=== PATIENT | female | born 1940 | race Caucasian/White ===

== ENCOUNTER → 2017-02-01 | Outpatient (CLI) | payer MEDICARE, BC | LOC: MW.CHPOD 08:00 | CPT/HCPCS: 11721; 99204 ==

== ENCOUNTER → 2017-02-23 | Outpatient (CLI) | payer MEDICARE, BC | LOC: MW.CHIM 08:00 | PROVIDERS: ATTEND Internal Medicine | DX: E11.65 Type 2 diabetes mellitus with hyperglycemia (principal); J44.9 Chronic obstructive pulmonary disease, unspecified; F17.200 Nicotine dependence, unspecified, uncomplicated; G62.9 Polyneuropathy, unspecified | CPT/HCPCS: 99215 ==

== ENCOUNTER → 2017-04-10 | Outpatient (CLI) | payer MEDICARE, BC | LOC: MW.CHIM 08:25 | PROVIDERS: ATTEND Internal Medicine | DX: E11.9 Type 2 diabetes mellitus without complications (principal) | CPT/HCPCS: 36415; 83036 ==

== ENCOUNTER → 2017-04-11 | Outpatient (CLI) | payer MEDICARE, BC | LOC: MW.CHIM 08:00 | PROVIDERS: ATTEND Internal Medicine | DX: E11.65 Type 2 diabetes mellitus with hyperglycemia (principal); E66.9 Obesity, unspecified; R60.0 Localized edema; J44.9 Chronic obstructive pulmonary disease, unspecified | CPT/HCPCS: 99214 ==

== ENCOUNTER → 2017-04-17 | Outpatient (CLI) | payer MEDICARE, BC ==
[2017-04-17 15:08] LABS: CHLORIDE,CL 103 mmol/L (98-110); SODIUM,NA 139 mmol/L (136-146)
== END ==
LOC: MW.CHIM 13:33
PROVIDERS: ATTEND Internal Medicine
DX: I10 Essential (primary) hypertension (principal)
CPT/HCPCS: 36415; 80048

== ENCOUNTER 2018-05-20 00:44 | Observation (INO) | payer MEDICARE, BC ==
[2018-05-20] MEDS ORDERED: Sodium Chloride 0.9% 10 ML Syringe FLUSH PRN (01:22)
[2018-05-20] MEDS ORDERED: Sodium Chloride 0.9% 2.5 ML Syringe FLUSH PRN (01:22)
--- NOTE | 2018-05-20 01:27 | EDM.PDOC ---
ED HPI GENERAL MEDICAL PROBLEM - General Chief Complaint: General Stated Complaint: FALL Time Seen by Provider: 05/20/18 01:13 - History of Present Illness INITIAL COMMENTS - FREE TEXT/NARRATIVE: HISTORY AND PHYSICAL: History of present illness: The patient is a 78-year-old female who arrives via EMS after falling her own height. The patient has a history of hypertension COPD stage IV chronic renal disease diabetes and tells me that starting last evening her legs are feeling very weak and that is what caused her to fall and she hit the back of her head. She says she passed out but she is unsure how long and she initially had head pain and neck pain but now her head pain is gone. She has no back pain no chest pain or shortness of breath no abdominal pain vomiting or diarrhea. She's had no urinary complaints and complains of left hip pain but no distal knee or ankle pain. Patient arrived via EMS with a c-collar in place and a immobilization on her hip. Patient tells me she ate normally yesterday and had no systemic complaints and that this leg weakness came on suddenly. She denies upper extremity complaints and says it was both legs not right or left. Patient denies any chest pain or shortness of breath currently in the ED and is not nauseated. Review of systems: As per history of present illness and below otherwise all systems reviewed and negative. Past medical history: As per history of present illness and as reviewed below otherwise noncontributory. Surgical history: As per history of present illness and as reviewed below otherwise noncontributory. Social history: No reported history of drug or alcohol abuse. Family history: As per history of present illness and as reviewed below otherwise noncontributory. Physical exam: General: Well-developed overweight female who is nontoxic and vital signs are noted by me HEENT: Atraumatic, normocephalic, pupils reactive, negative for conjunctival pallor or scleral icterus, mucous membranes moist, throat clear, neck supple, nontender, trachea midline. There are no midline step-offs or defects of the cervical spine but there is diffuse tenderness so the c-collar was maintained. On palpation of the scalp I cannot appreciate any soft tissue injury or swelling and there are no palpable bony deformities. There are no fascial defects or deformities. Lungs: Clear to auscultation, breath sounds equal bilaterally, chest nontender. No worker breathing stridor or wheezing Heart: S1S2, regular rate and rhythm no overt murmurs Abdomen: Soft, nondistended, nontender. Negative for masses or hepatosplenomegaly. Negative for costovertebral tenderness. Pelvis: Stable nontender. Genitourinary: Deferred. Rectal: Deferred. Extremities: Atraumatic with full range of motion of all extremities with the exception of the left hip where there is tenderness with palpation but no overt bruising and there is no left leg shortening or rotation,, negative for cords or calf pain. Neurovascular with monophasic pulses in the posterior tibial and dorsalis pedis bilaterally but good cap refill and warmth Neuro: Awake, alert, oriented. Cranial nerves II through XII unremarkable. Cerebellum unremarkable. Motor and sensory unremarkable throughout. Exam nonfocal. Back: There are no midline step-offs tenderness defects of the thoracic or lumbar spine and no posterior rib or posterior pelvis tenderness. There are no visual soft tissue injuries appreciated such as ecchymosis swelling or redness. Diagnostics: EKG CBC CMP magnesium INR TSH troponin UA lactic acid x-ray of left hip with pelvis chest x-ray CT scan of the head and C-spine When patient was in x-ray she complained of right hip pain so that x-ray was also ordered Repeat one view chest x-ray was performed in the upright position Therapeutics: IV O2 monitor gentle IV fluids Please note that I have reviewed the patient's prior lab tests and she had BUN and creatinine performed on April 01 which was 65/2.2 and then she had a repeat creatinine level on April 08 of 2.4. Today's creatinine is 2.7 but the BUN is 103. UA indicates maybe an early UTI so I will send a urine culture and give a gram of Rocephin. I will also continue gentle IV hydration. 0321: Case was discussed with the hospitalist Dr. Stout; she agrees with observation admission as she has multiple issues going on. Impression: Bilateral Lower extremity weakness and fall with blunt head trauma with loss of consciousness, concussion rule out syncope; elevated BUN and creatinine with history of stage IV chronic renal disease rule out dehydration; early UTI Definitive disposition and diagnosis as appropriate pending reevaluation and review of above. Treatments SOFTWARE SUPPORT REPRESENTATIVE: Reports: Cervical Collar, Splint(s), Spinal Immobilization back of head Pain Score (Numeric/FACES): 8 left hip Pain Score (Numeric/FACES): 8 - Related Data Allergies Allergy/AdvReac Type Severity Reaction Status Date / Time No Known Allergies Allergy Verified 10/20/14 08:20 Home Meds: Home Meds Aspirin 1 tab PO DAILY 05/20/18 [History] Budesonide/Formoterol Fumarate [Symbicort 160-4.5 Mcg Inhaler] 1 puff INH ASDIRECTED 05/20/18 [History] Enalapril/Hydrochlorothiazide [Enalapril-HCTZ 10-25 MG] 1 tab PO DAILY 05/20/18 [History] Furosemide [Lasix] 1 tab PO DAILY 05/20/18 [History] Gabapentin [Neurontin] 1 cap PO BID 05/20/18 [History] Insulin Detemir [Levemir Flextouch] 0 units SQ ASDIRECTED 05/20/18 [History] Rosuvastatin Calcium 1 tab PO ASDIRECTED 05/20/18 [History] amLODIPine Besylate [Amlodipine Besylate] 1 tab PO DAILY 05/20/18 [History] prednisoLONE [Millipred DP] 1 tab PO DAILY 05/20/18 [History] ED ROS GENERAL - Review of Systems Review Of Systems: ROS reveals no pertinent complaints other than HPI. ED EXAM, GENERAL - Physical Exam Exam: See Below (See dictation) Course - Vital Signs Last Recorded V/S: Last Vital Signs Temp 36.2 C 05/20/18 00:44 Pulse 85 05/20/18 02:12 Resp 19 05/20/18 02:12 BP 114/42 L 05/20/18 02:12 Pulse Ox 95 05/20/18 02:12 - Orders/Labs/Meds Orders: Active Orders 24 hr Category Date Time Status Patient Status [ADT] Stat ADT 05/20/18 03:24 Ordered Cardiac Monitoring [RC] . DIRECTED Care 05/20/18 01:21 Active Pulse Oximetry [RC] ASDIRECTED Care 05/20/18 01:21 Active Cervical Spine wo Cont [CT] Stat Exams 05/20/18 01:23 Taken Chest 1V Frontal [CR] Stat Exams 05/20/18 01:22 Taken Chest 1V Frontal [CR] Stat Exams 05/20/18 02:15 Taken Head wo Cont [CT] Stat Exams 05/20/18 01:22 Taken Hip Min 2V w Pelvis Bi [CR] Stat Exams 05/20/18 01:22 Taken CULTURE URINE [RM] Stat Lab 05/20/18 02:30 Received UA W/MICROSCOPIC [URIN] Stat Lab 05/20/18 02:20 Ordered Sodium Chloride 0.9% @ 75 MLS/HR(1,000ml) Med 05/20/18 03:30 Ordered Sodium Chloride 0.9% [Normal Saline] 1,000 ml IV ASDIRECTED Sodium Chloride 0.9% [Normal Saline] 500 ml Med 05/20/18 01:30 Active IV STAT Sodium Chloride 0.9% [Saline Flush] Med 05/20/18 01:22 Active 10 ml FLUSH ASDIRECTED PRN Sodium Chloride 0.9% [Saline Flush] Med 05/20/18 01:22 Active 2.5 ml FLUSH ASDIRECTED PRN cefTRIAXone [Rocephin in Dextrose,Iso-Osm 1 GM/50 ML] 1 Med 05/20/18 03:23 Ordered gm Premix Bag 1 bag IV ONETIME Saline Lock Insert [OM.PC] Stat Oth 05/20/18 01:21 Ordered Medication Orders Sodium Chloride (Normal Saline) 500 mls @ 999 mls/hr IV STAT SHIV Last Admin: 05/20/18 01:30 Dose: 999 mls/hr Sodium Chloride (Saline Flush) 10 ml FLUSH ASDIRECTED PRN PRN Reason: Keep Vein Open Sodium Chloride (Saline Flush) 2.5 ml FLUSH ASDIRECTED PRN PRN Reason: Keep Vein Open Labs: Laboratory Tests 05/20/18 05/20/18 05/20/18 Range/Units 00:45 00:45 00:45 WBC 15.48 H (4.0-11.0) K/uL RBC 4.61 (4.30-5.90) M/uL Hgb 11.9 L (12.0-16.0) g/dL Hct 36.2 (36.0-46.0) % MCV 78.5 L (80.0-98.0) fL MCH 25.8 L (27.0-32.0) pg MCHC 32.9 (31.0-37.0) g/dL RDW Std Deviation 49.6 (28.0-62.0) fl RDW Coeff of Franki 18 H (11.0-15.0) % Plt Count 307 (150-400) K/uL MPV 10.40 (7.40-12.00) fL Neut % (Auto) 78.0 (48.0-80.0) % Lymph % (Auto) 13.8 L (16.0-40.0) % [place] % (Auto) 7.9 (0.0-15.0) % Eos % (Auto) 0.1 (0.0-7.0) % Baso % (Auto) 0.2 (0.0-1.5) % Neut # (Auto) 12.1 H (1.4-5.7) K/uL Lymph # (Auto) 2.1 (0.6-2.4) K/uL [place] # (Auto) 1.2 H (0.0-0.8) K/uL Eos # (Auto) 0.0 (0.0-0.7) K/uL Baso # (Auto) 0.0 (0.0-0.1) K/uL INR 0.97 Lactate (0.20-2.00) mmol/L Sodium 133 L (136-145) mmol/L Potassium 4.5 (3.5-5.1) mmol/L Chloride 97 L (98-107) mmol/L Carbon Dioxide 23.2 (21.0-32.0) mmol/L BUN 103 H (7.0-18.0) mg/dL Creatinine 2.7 H (0.6-1.0) mg/dL Est Cr Clr Drug Dosing TNP Estimated GFR (MDRD) 17.0 ml/min Glucose 198 H (74-106) mg/dL Calcium 9.2 (8.5-10.1) mg/dL Magnesium 2.1 (1.8-2.4) mg/dL Total Bilirubin 0.2 (0.2-1.0) mg/dL AST 20 (15-37) IU/L ALT 24 (14-63) IU/L Alkaline Phosphatase 58 (46-116) U/L Troponin I < 0.050 (0.000-0.056) ng/mL Total Protein 6.1 L (6.4-8.2) g/dL Albumin 2.5 L (3.4-5.0) g/dL Globulin 3.6 H (2.0-3.5) g/dL Albumin/Globulin Ratio 0.7 L (1.3-2.8) TSH 3rd Generation 1.60 (0.36-3.74) uIU/mL Urine Color Urine Appearance Urine pH (5.0-8.0) Ur Specific [place] (1.001-1.035) Urine Protein (NEGATIVE) mg/dL Urine Glucose (UA) (NEGATIVE) mg/dL Urine Ketones (NEGATIVE) mg/dL Urine Occult Blood (NEGATIVE) Urine Nitrite (NEGATIVE) Urine Bilirubin (NEGATIVE) Urine Urobilinogen (<2.0) EU/dL Ur Leukocyte Esterase (NEGATIVE) Urine RBC (0-2/HPF) Urine WBC (0-5/HPF) Ur Epithelial Cells (NONE-FEW) Urine Bacteria (NEGATIVE) 05/20/18 05/20/18 Range/Units 00:45 02:20 WBC (4.0-11.0) K/uL RBC (4.30-5.90) M/uL Hgb (12.0-16.0) g/dL Hct (36.0-46.0) % MCV (80.0-98.0) fL MCH (27.0-32.0) pg MCHC (31.0-37.0) g/dL RDW Std Deviation (28.0-62.0) fl RDW Coeff of Franki (11.0-15.0) % Plt Count (150-400) K/uL MPV (7.40-12.00) fL Neut % (Auto) (48.0-80.0) % Lymph % (Auto) (16.0-40.0) % [place] % (Auto) (0.0-15.0) % Eos % (Auto) (0.0-7.0) % Baso % (Auto) (0.0-1.5) % Neut # (Auto) (1.4-5.7) K/uL Lymph # (Auto) (0.6-2.4) K/uL [place] # (Auto) (0.0-0.8) K/uL Eos # (Auto) (0.0-0.7) K/uL Baso # (Auto) (0.0-0.1) K/uL INR Lactate 1.2 (0.20-2.00) mmol/L Sodium (136-145) mmol/L Potassium (3.5-5.1) mmol/L Chloride (98-107) mmol/L Carbon Dioxide (21.0-32.0) mmol/L BUN (7.0-18.0) mg/dL Creatinine (0.6-1.0) mg/dL Est Cr Clr Drug Dosing Estimated GFR (MDRD) ml/min Glucose (74-106) mg/dL Calcium (8.5-10.1) mg/dL Magnesium (1.8-2.4) mg/dL Total Bilirubin (0.2-1.0) mg/dL AST (15-37) IU/L ALT (14-63) IU/L Alkaline Phosphatase (46-116) U/L Troponin I (0.000-0.056) ng/mL Total Protein (6.4-8.2) g/dL Albumin (3.4-5.0) g/dL Globulin (2.0-3.5) g/dL Albumin/Globulin Ratio (1.3-2.8) TSH 3rd Generation (0.36-3.74) uIU/mL Urine Color YELLOW Urine Appearance HAZY Urine pH 5.5 (5.0-8.0) Ur Specific [place] 1.010 (1.001-1.035) Urine Protein NEGATIVE (NEGATIVE) mg/dL Urine Glucose (UA) NEGATIVE (NEGATIVE) mg/dL Urine Ketones NEGATIVE (NEGATIVE) mg/dL Urine Occult Blood SMALL H (NEGATIVE) Urine Nitrite NEGATIVE (NEGATIVE) Urine Bilirubin NEGATIVE (NEGATIVE) Urine Urobilinogen 0.2 (<2.0) EU/dL Ur Leukocyte Esterase SMALL (NEGATIVE) Urine RBC 1-3 (0-2/HPF) Urine WBC 2-4 (0-5/HPF) Ur Epithelial Cells FEW (NONE-FEW) Urine Bacteria FEW (NEGATIVE) Meds: Medications Generic Name Dose Route Start Last Admin Trade Name Freq PRN Reason Stop Dose Admin Sodium Chloride 500 mls @ 999 mls/hr 05/20/18 01:30 05/20/18 01:30 Normal Saline IV 999 mls/hr STAT SHIV Administration Sodium Chloride 10 ml 05/20/18 01:22 Saline Flush FLUSH ASDIRECTED PRN Keep Vein Open Sodium Chloride 2.5 ml 05/20/18 01:22 Saline Flush FLUSH ASDIRECTED PRN Keep Vein Open Departure - Departure Time of Disposition: 03:26 Disposition: Refer to Observation Condition: Good Clinical Impression: Dehydration, UTI, Urinary tract infectious disease, Fall Syncope Qualifiers: Syncope type: unspecified Qualified Code(s): R55 - Syncope and collapse Blunt head trauma Qualifiers: Encounter type: initial encounter Qualified Code(s): S09.8XXA - Other specified injuries of head, initial encounter - Discharge Information Referrals: PCP,None [Primary Care Provider] - Forms: ED Department Discharge - My Orders Last 24 Hours: My Active Orders 05/20/18 01:21 Cardiac Monitoring [RC] . DIRECTED Pulse Oximetry [RC] ASDIRECTED Saline Lock Insert [OM.PC] Stat 05/20/18 01:22 Chest 1V Frontal [CR] Stat Head wo Cont [CT] Stat Hip Min 2V w Pelvis Bi [CR] Stat Sodium Chloride 0.9% [Saline Flush] 10 ml FLUSH ASDIRECTED PRN Sodium Chloride 0.9% [Saline Flush] 2.5 ml FLUSH ASDIRECTED PRN 05/20/18 01:23 Cervical Spine wo Cont [CT] Stat 05/20/18 01:30 Sodium Chloride 0.9% [Normal Saline] 500 ml IV STAT 05/20/18 02:15 Chest 1V Frontal [CR] Stat 05/20/18 02:20 UA W/MICROSCOPIC [URIN] Stat 05/20/18 02:30 CULTURE URINE [RM] Stat 05/20/18 03:23 cefTRIAXone [Rocephin in Dextrose,Iso-Osm 1 GM/50 ML] 1 gm Premix Bag 1 bag IV ONETIME 05/20/18 03:24 Patient Status [ADT] Stat 05/20/18 03:30 Sodium Chloride 0.9% @ 75 MLS/HR(1,000ml) Sodium Chloride 0.9% [Normal Saline] 1,000 ml IV ASDIRECTED - Assessment/Plan Last 24 Hours: My Active Orders 05/20/18 01:21 Cardiac Monitoring [RC] . DIRECTED Pulse Oximetry [RC] ASDIRECTED Saline Lock Insert [OM.PC] Stat 05/20/18 01:22 Chest 1V Frontal [CR] Stat Head wo Cont [CT] Stat Hip Min 2V w Pelvis Bi [CR] Stat Sodium Chloride 0.9% [Saline Flush] 10 ml FLUSH ASDIRECTED PRN Sodium Chloride 0.9% [Saline Flush] 2.5 ml FLUSH ASDIRECTED PRN 05/20/18 01:23 Cervical Spine wo Cont [CT] Stat 05/20/18 01:30 Sodium Chloride 0.9% [Normal Saline] 500 ml IV STAT 05/20/18 02:15 Chest 1V Frontal [CR] Stat 05/20/18 02:20 UA W/MICROSCOPIC [URIN] Stat 05/20/18 02:30 CULTURE URINE [RM] Stat 05/20/18 03:23 cefTRIAXone [Rocephin in Dextrose,Iso-Osm 1 GM/50 ML] 1 gm Premix Bag 1 bag IV ONETIME 05/20/18 03:24 Patient Status [ADT] Stat 05/20/18 03:30 Sodium Chloride 0.9% @ 75 MLS/HR(1,000ml) Sodium Chloride 0.9% [Normal Saline] 1,000 ml IV ASDIRECTED
[2018-05-20] MEDS: Sodium Chloride 0.9% 500 ML IV SCH ×2 (01:30→14:01)
[2018-05-20 01:53] LABS: CHLORIDE,CL 97 mmol/L (98-107); SODIUM,NA 133 mmol/L (136-145)
[2018-05-20] MEDS ORDERED: cefTRIAXone 1 GM in Premix Bag 1 BAG IV ONE (03:23)
[2018-05-20] MEDS ORDERED: Sodium Chloride 0.9% 1,000 ML IV SCH (03:30)
[2018-05-20] MEDS: Lactated Ringers 1,000 ML IV SCH ×2 (05:45→23:37)
[2018-05-20] MEDS: Heparin Sodium 5,000 Units/ML Vial SUBCUT SCH ×2 (05:47→17:23)
[2018-05-20 07:12] LABS: CHLORIDE,CL 101 mmol/L (98-107); SODIUM,NA 136 mmol/L (136-145)
[2018-05-20] MEDS: Insulin Aspart 100 Units/ML 3 ML Pen SUBCUT SCH ×4 (07:27→20:47)
[2018-05-20] MEDS ORDERED: Albuterol/Ipratropium 3.0-0.5 MG/3 ML Neb Soln NEB PRN (08:55)
[2018-05-20] MEDS ORDERED: Sodium Chloride 0.9% 500 ML IV SCH (09:15)
--- NOTE | 2018-05-20 10:48 | PCM.HP ---
<Freddy Abreu - Last Filed: 05/20/18 11:00> H&P History of Present Illness - General Date of Service: 05/20/18 Admit Problem/Dx: Admission Diagnosis/Problem Admission Diagnosis/Problem Syncope Source of Information: Patient History Limitations: Reports: No Limitations - History of Present Illness Initial Comments - Free Text/Narative: This is a 78F with a hx of T2DM, HTN, HLD, Peripheral neuropathy that presented to the ER s/p fall at home. She tells me that she was walking to the kitchen without assistance when she felt that both of her legs gave out beneath her and she fell over. She hit her head on the wall as she fell. She thinks she passed out "for a few seconds" when this happened. She woke up with no confusion, or tongue bite. She has never had a syncopal episode before. In the ER, CT Head + Cervical neck, CXR, bilateral hip xray were all negative. Labs indicate a leukocytosis and possible UTI. Currently, she complains of bilateral leg pain that is mild. She has no other complaints. back of head Pain Score (Numeric/FACES): 8 left hip Pain Score (Numeric/FACES): 3 - Related Data Allergies/Adverse Reactions: Allergies Allergy/AdvReac Type Severity Reaction Status Date / Time No Known Allergies Allergy Verified 10/20/14 08:20 Home Medications: Home Meds Aspirin 1 tab PO DAILY 05/20/18 [History] Budesonide/Formoterol Fumarate [Symbicort 160-4.5 Mcg Inhaler] 1 puff INH ASDIRECTED 05/20/18 [History] Enalapril/Hydrochlorothiazide [Enalapril-HCTZ 10-25 MG] 1 tab PO DAILY 05/20/18 [History] Furosemide [Lasix] 1 tab PO DAILY 05/20/18 [History] Gabapentin [Neurontin] 1 cap PO BID 05/20/18 [History] Insulin Detemir [Levemir Flextouch] 0 units SQ ASDIRECTED 05/20/18 [History] Rosuvastatin Calcium 20 mg PO SUTUTHSA 05/20/18 [History] amLODIPine Besylate [Amlodipine Besylate] 10 mg PO DAILY 05/20/18 [History] prednisoLONE [Millipred DP] 1 tab PO DAILY 05/20/18 [History] Past Medical History HEENT History: Reports: Hard of Hearing Cardiovascular History: Reports: High Cholesterol, Hypertension Respiratory History: Reports: COPD Gastrointestinal History: Reports: Other (See Below) Other Gastrointestinal History: umbilical hernia Genitourinary History: Reports: Other (See Below) Other Genitourinary History: CKD Musculoskeletal History: Reports: None Endocrine/Metabolic History: Reports: Diabetes, Type II Immunologic History: Reports: None - Infectious Disease History Infectious Disease History: Reports: None - Past Surgical History HEENT Surgical History: Reports: None Cardiovascular Surgical History: Reports: None Respiratory Surgical History: Reports: None GI Surgical History: Reports: Colon Endocrine Surgical History: Reports: None Musculoskeletal Surgical History: Reports: None Social & Family History - Family History Family Medical History: Noncontributory - Tobacco Use Smoking Status *Q: Current Every Day Smoker Years of Tobacco use: 57 Packs/Tins Daily: 0.5 Second Hand Smoke Exposure: Yes - Caffeine Use Caffeine Use: Reports: Coffee - Recreational Drug Use Recreational Drug Use: No H&P Review of Systems - Review of Systems: Review Of Systems: See Below General: Reports: No Symptoms HEENT: Reports: No Symptoms Pulmonary: Reports: No Symptoms Cardiovascular: Reports: No Symptoms Gastrointestinal: Reports: No Symptoms, Stool Incontinence Musculoskeletal: Reports: No Symptoms Skin: Reports: No Symptoms Psychiatric: Reports: No Symptoms Neurological: Reports: No Symptoms, Syncope Hematologic/Lymphatic: Reports: No Symptoms Immunologic: Reports: No Symptoms Exam - Exam Exam: See Below - Vital Signs Vital Signs: Last Vital Signs Temp 36.2 C 05/20/18 08:00 Pulse 94 05/20/18 08:00 Resp 19 05/20/18 08:00 BP 127/60 05/20/18 08:00 Pulse Ox 93 L 05/20/18 08:00 Weight: 200 lb - Exam General: Alert, Oriented, 4 HEENT: PERRLA, Hearing Intact, Mucosa Moist & [place], Nares Patent, Normal Nasal Septum, Posterior Pharynx Clear, Conjunctiva Clear, EOMI, EACs Clear, TMs Clear Neck: Supple, Trachea Midline, 2 Lungs: Clear to Auscultation, Normal Respiratory Effort Cardiovascular: Regular Rate, Regular Rhythm GI/Abdominal Exam: Normal Bowel Sounds, Soft, Non-Tender, No Organomegaly, No Distention, No Abnormal Bruit, No Mass, Pelvis Stable Back Exam: Normal Inspection, Full Range of Motion, NT Extremities: Normal Inspection, Normal Range of Motion, Non-Tender, No Pedal Edema, Normal Capillary Refill Peripheral Pulses: 2+: Dorsalis Pedis (L), Dorsalis Pedis (R) Skin: Warm, Dry, Intact Neurological: Cranial Nerves Intact, Reflexes Equal Bilateral Neuro Extensive - Mental Status: Alert, Oriented x3, Normal Mood/Affect, Normal Cognition Neuro Extensive - Motor, Sensory, Reflexes: CN II-XII Intact, Normal Gait, Normal Reflexes Psychiatric: Alert, Normal Affect, Normal Mood - Patient Data Lab Results Last 24 hrs: Laboratory Results - last 24 hr 05/20/18 05/20/18 05/20/18 Range/Units 00:45 00:45 00:45 WBC 15.48 H (4.0-11.0) K/uL RBC 4.61 (4.30-5.90) M/uL Hgb 11.9 L (12.0-16.0) g/dL Hct 36.2 (36.0-46.0) % MCV 78.5 L (80.0-98.0) fL MCH 25.8 L (27.0-32.0) pg MCHC 32.9 (31.0-37.0) g/dL RDW Std Deviation 49.6 (28.0-62.0) fl RDW Coeff of Franki 18 H (11.0-15.0) % Plt Count 307 (150-400) K/uL MPV 10.40 (7.40-12.00) fL Neut % (Auto) 78.0 (48.0-80.0) % Lymph % (Auto) 13.8 L (16.0-40.0) % [place]ift % (Auto) 7.9 (0.0-15.0) % Eos % (Auto) 0.1 (0.0-7.0) % Baso % (Auto) 0.2 (0.0-1.5) % Neut # (Auto) 12.1 H (1.4-5.7) K/uL Lymph # (Auto) 2.1 (0.6-2.4) K/uL [place]ift # (Auto) 1.2 H (0.0-0.8) K/uL Eos # (Auto) 0.0 (0.0-0.7) K/uL Baso # (Auto) 0.0 (0.0-0.1) K/uL Neutrophils % (Manual) (48.0-80.0) % Band Neutrophils % % Lymphocytes % (Manual) (16.0-40.0) % Monocytes % (Manual) (0.0-15.0) % Nucleated RBC % /100WBC Absolute Seg Neuts (1.4-5.7) Band Neutrophils # Lymphocytes # (Manual) (0.6-2.4) Monocytes # (Manual) (0.0-0.8) INR 0.97 Lactate (0.20-2.00) mmol/L Sodium 133 L (136-145) mmol/L Potassium 4.5 (3.5-5.1) mmol/L Chloride 97 L (98-107) mmol/L Carbon Dioxide 23.2 (21.0-32.0) mmol/L BUN 103 H (7.0-18.0) mg/dL Creatinine 2.7 H (0.6-1.0) mg/dL Est Cr Clr Drug Dosing TNP Estimated GFR (MDRD) 17.0 ml/min Glucose 198 H (74-106) mg/dL POC Glucose (60-110) mg/dL Calcium 9.2 (8.5-10.1) mg/dL Magnesium 2.1 (1.8-2.4) mg/dL Total Bilirubin 0.2 (0.2-1.0) mg/dL AST 20 (15-37) IU/L ALT 24 (14-63) IU/L Alkaline Phosphatase 58 (46-116) U/L Troponin I < 0.050 (0.000-0.056) ng/mL Total Protein 6.1 L (6.4-8.2) g/dL Albumin 2.5 L (3.4-5.0) g/dL Globulin 3.6 H (2.0-3.5) g/dL Albumin/Globulin Ratio 0.7 L (1.3-2.8) TSH 3rd Generation 1.60 (0.36-3.74) uIU/mL Urine Color Urine Appearance Urine pH (5.0-8.0) Ur Specific [place] (1.001-1.035) Urine Protein (NEGATIVE) mg/dL Urine Glucose (UA) (NEGATIVE) mg/dL Urine Ketones (NEGATIVE) mg/dL Urine Occult Blood (NEGATIVE) Urine Nitrite (NEGATIVE) Urine Bilirubin (NEGATIVE) Urine Urobilinogen (<2.0) EU/dL Ur Leukocyte Esterase (NEGATIVE) Urine RBC (0-2/HPF) Urine WBC (0-5/HPF) Ur Epithelial Cells (NONE-FEW) Urine Bacteria (NEGATIVE) 05/20/18 05/20/18 05/20/18 Range/Units 00:45 02:20 06:10 WBC (4.0-11.0) K/uL RBC (4.30-5.90) M/uL Hgb (12.0-16.0) g/dL Hct (36.0-46.0) % MCV (80.0-98.0) fL MCH (27.0-32.0) pg MCHC (31.0-37.0) g/dL RDW Std Deviation (28.0-62.0) fl RDW Coeff of Franki (11.0-15.0) % Plt Count (150-400) K/uL MPV (7.40-12.00) fL Neut % (Auto) (48.0-80.0) % Lymph % (Auto) (16.0-40.0) % Tift % (Auto) (0.0-15.0) % Eos % (Auto) (0.0-7.0) % Baso % (Auto) (0.0-1.5) % Neut # (Auto) (1.4-5.7) K/uL Lymph # (Auto) (0.6-2.4) K/uL [place]ift # (Auto) (0.0-0.8) K/uL Eos # (Auto) (0.0-0.7) K/uL Baso # (Auto) (0.0-0.1) K/uL Neutrophils % (Manual) (48.0-80.0) % Band Neutrophils % % Lymphocytes % (Manual) (16.0-40.0) % Monocytes % (Manual) (0.0-15.0) % Nucleated RBC % /100WBC Absolute Seg Neuts (1.4-5.7) Band Neutrophils # Lymphocytes # (Manual) (0.6-2.4) Monocytes # (Manual) (0.0-0.8) INR Lactate 1.2 (0.20-2.00) mmol/L Sodium (136-145) mmol/L Potassium (3.5-5.1) mmol/L Chloride (98-107) mmol/L Carbon Dioxide (21.0-32.0) mmol/L BUN (7.0-18.0) mg/dL Creatinine (0.6-1.0) mg/dL Est Cr Clr Drug Dosing Estimated GFR (MDRD) ml/min Glucose (74-106) mg/dL POC Glucose 169 H (60-110) mg/dL Calcium (8.5-10.1) mg/dL Magnesium (1.8-2.4) mg/dL Total Bilirubin (0.2-1.0) mg/dL AST (15-37) IU/L ALT (14-63) IU/L Alkaline Phosphatase (46-116) U/L Troponin I (0.000-0.056) ng/mL Total Protein (6.4-8.2) g/dL Albumin (3.4-5.0) g/dL Globulin (2.0-3.5) g/dL Albumin/Globulin Ratio (1.3-2.8) TSH 3rd Generation (0.36-3.74) uIU/mL Urine Color YELLOW Urine Appearance HAZY Urine pH 5.5 (5.0-8.0) Ur Specific [place] 1.010 (1.001-1.035) Urine Protein NEGATIVE (NEGATIVE) mg/dL Urine Glucose (UA) NEGATIVE (NEGATIVE) mg/dL Urine Ketones NEGATIVE (NEGATIVE) mg/dL Urine Occult Blood SMALL H (NEGATIVE) Urine Nitrite NEGATIVE (NEGATIVE) Urine Bilirubin NEGATIVE (NEGATIVE) Urine Urobilinogen 0.2 (<2.0) EU/dL Ur Leukocyte Esterase SMALL (NEGATIVE) Urine RBC 1-3 (0-2/HPF) Urine WBC 2-4 (0-5/HPF) Ur Epithelial Cells FEW (NONE-FEW) Urine Bacteria FEW (NEGATIVE) 05/20/18 05/20/18 Range/Units 06:47 06:47 WBC 16.18 H (4.0-11.0) K/uL RBC 4.59 (4.30-5.90) M/uL Hgb 11.9 L (12.0-16.0) g/dL Hct 35.9 L (36.0-46.0) % MCV 78.2 L (80.0-98.0) fL MCH 25.9 L (27.0-32.0) pg MCHC 33.1 (31.0-37.0) g/dL RDW Std Deviation 50.1 (28.0-62.0) fl RDW Coeff of Franki 18 H (11.0-15.0) % Plt Count 292 (150-400) K/uL MPV 10.00 (7.40-12.00) fL Neut % (Auto) (48.0-80.0) % Lymph % (Auto) (16.0-40.0) % Tift % (Auto) (0.0-15.0) % Eos % (Auto) (0.0-7.0) % Baso % (Auto) (0.0-1.5) % Neut # (Auto) (1.4-5.7) K/uL Lymph # (Auto) (0.6-2.4) K/uL [place]ift # (Auto) (0.0-0.8) K/uL Eos # (Auto) (0.0-0.7) K/uL Baso # (Auto) (0.0-0.1) K/uL Neutrophils % (Manual) 73 (48.0-80.0) % Band Neutrophils % 2 % Lymphocytes % (Manual) 18 (16.0-40.0) % Monocytes % (Manual) 7 (0.0-15.0) % Nucleated RBC % 0.0 /100WBC Absolute Seg Neuts 11.8 H (1.4-5.7) Band Neutrophils # 0.3 Lymphocytes # (Manual) 2.9 H (0.6-2.4) Monocytes # (Manual) 1.1 H (0.0-0.8) INR Lactate (0.20-2.00) mmol/L Sodium 136 (136-145) mmol/L Potassium 3.8 (3.5-5.1) mmol/L Chloride 101 (98-107) mmol/L Carbon Dioxide 25.2 (21.0-32.0) mmol/L BUN 96 H (7.0-18.0) mg/dL Creatinine 2.4 H (0.6-1.0) mg/dL Est Cr Clr Drug Dosing TNP Estimated GFR (MDRD) 19.5 ml/min Glucose 165 H (74-106) mg/dL POC Glucose (60-110) mg/dL Calcium 8.7 (8.5-10.1) mg/dL Magnesium (1.8-2.4) mg/dL Total Bilirubin 0.2 (0.2-1.0) mg/dL AST 18 (15-37) IU/L ALT 23 (14-63) IU/L Alkaline Phosphatase 59 (46-116) U/L Troponin I < 0.050 (0.000-0.056) ng/mL Total Protein 5.8 L (6.4-8.2) g/dL Albumin 2.4 L (3.4-5.0) g/dL Globulin 3.4 (2.0-3.5) g/dL Albumin/Globulin Ratio 0.7 L (1.3-2.8) TSH 3rd Generation (0.36-3.74) uIU/mL Urine Color Urine Appearance Urine pH (5.0-8.0) Ur Specific [place] (1.001-1.035) Urine Protein (NEGATIVE) mg/dL Urine Glucose (UA) (NEGATIVE) mg/dL Urine Ketones (NEGATIVE) mg/dL Urine Occult Blood (NEGATIVE) Urine Nitrite (NEGATIVE) Urine Bilirubin (NEGATIVE) Urine Urobilinogen (<2.0) EU/dL Ur Leukocyte Esterase (NEGATIVE) Urine RBC (0-2/HPF) Urine WBC (0-5/HPF) Ur Epithelial Cells (NONE-FEW) Urine Bacteria (NEGATIVE) Result Diagrams: 05/20/18 06:47 05/20/18 06:47 Problem List Initiated/Reviewed/Updated: Yes Orders Last 24hrs: Active Orders 24 hr Category Date Time Status Patient Status [ADT] Stat ADT 05/20/18 03:24 Active Accu Check [Blood Glucose Check, Bedside] [RC] Care 05/20/18 07:30 Active QIDACANDBED Activity as Tolerated [RC] .Routine Care 05/20/18 05:13 Active Cardiac Monitoring [RC] . DIRECTED Care 05/20/18 01:21 Active Insert Abarca Catheter [Insert Urinary Catheter] [OM.PC] Care 05/20/18 05:15 Ordered Q24H Neuro Check [RC] Q2HR Care 05/20/18 08:56 Active Orthostatic Vital Signs [RC] ASDIRECTED Care 05/20/18 05:10 Active Pulse Oximetry [RC] ASDIRECTED Care 05/20/18 01:21 Active RT Aerosol Therapy [RC] ASDIRECTED Care 05/20/18 08:55 Active Urinary Catheter Assessment [RC] ASDIRECTED Care 05/20/18 05:08 Active Consult to Physical Therapy [PT Evaluation and Cons 05/20/18 05:13 Active Treatment] [CONS] Routine ADA Diabetic [[place] [employer] Diet] [DIET Diet 05/20/18 Breakfast Active ] Cervical Spine wo Cont [CT] Stat Exams 05/20/18 01:23 Taken Chest 1V Frontal [CR] Stat Exams 05/20/18 01:22 Taken Chest 1V Frontal [CR] Stat Exams 05/20/18 02:15 Taken Echo Comp wo Cont [US] Routine Exams 05/20/18 05:12 Ordered Head wo Cont [CT] Stat Exams 05/20/18 01:22 Taken Hip Min 2V w Pelvis Bi [CR] Stat Exams 05/20/18 01:22 Taken CULTURE URINE [RM] Stat Lab 05/20/18 02:30 Received TROPONIN I [CHEM] Q6H Lab 05/20/18 12:45 Ordered UA W/MICROSCOPIC [URIN] Stat Lab 05/20/18 02:20 Ordered Albuterol/Ipratropium [DuoNeb 3.0-0.5 MG/3 ML] Med 05/20/18 08:55 Active 3 ml NEB Q4HRRT PRN Heparin Sodium Med 05/20/18 05:30 Active 5,000 units SUBCUT Q12H Insulin Aspart [NovoLOG] Med 05/20/18 07:30 Active See Protocol SUBCUT ACBED Lactated Ringers [Ringers, Lactated] 1,000 ml Med 05/20/18 05:15 Active IV ASDIRECTED Sodium Chloride 0.9% [Normal Saline] 500 ml Med 05/20/18 09:15 Active IV .BOLUS Sodium Chloride 0.9% [Normal Saline] 500 ml Med 05/20/18 01:30 Active IV STAT Sodium Chloride 0.9% [Saline Flush] Med 05/20/18 01:22 Active 10 ml FLUSH ASDIRECTED PRN Sodium Chloride 0.9% [Saline Flush] Med 05/20/18 01:22 Active 2.5 ml FLUSH ASDIRECTED PRN Saline Lock Insert [OM.PC] Stat Oth 05/20/18 01:21 Ordered Medication Orders Albuterol/Ipratropium (Duoneb 3.0-0.5 Mg/3 Ml) 3 ml NEB Q4HRRT PRN PRN Reason: Wheezing Heparin Sodium (Porcine) (Heparin Sodium) 5,000 units SUBCUT Q12H SHIV Last Admin: 05/20/18 05:47 Dose: 5,000 units Sodium Chloride (Normal Saline) 500 mls @ 999 mls/hr IV STAT SHIV Last Admin: 05/20/18 01:30 Dose: 999 mls/hr Lactated Ringer's (Ringers, Lactated) 1,000 mls @ 75 mls/hr IV ASDIRECTED SHIV Last Admin: 05/20/18 05:45 Dose: 75 mls/hr Sodium Chloride (Normal Saline) 500 mls @ 999 mls/hr IV .[facility] Insulin Aspart (Novolog) 0 unit SUBCUT ACBED SHIV; Protocol Last Admin: 05/20/18 07:27 Dose: 2 units Sodium Chloride (Saline Flush) 10 ml FLUSH ASDIRECTED PRN PRN Reason: Keep Vein Open Sodium Chloride (Saline Flush) 2.5 ml FLUSH ASDIRECTED PRN PRN Reason: Keep Vein Open Assessment/Plan Comment:: Assessment: #1. Syncope resulting to fall secondary to ambulatory dysfunction #2. Right bundle branch block #3. History of T2DM, HTN, HLD, peripheral neuropathy #4. leukocytosis #5. UTI #6. Acute on chronic kidney disease Plan: #1. Admit to the floor for observation. Full code. Vital signs per floor routine. Neuro checks q2h for first 24 hours. Can discontinue neuro checks after that. #2. Echocardiogram #3. Physical therapy consult #4. insulin sliding scale #5. continue home meds for htn, hld, neuropathy. #6. Continue rocephin IV 1mg q24h for UTI. #7. CBC, BMP tomorrow morning. She does take daily prednisolone at home, which is likely the reason for her leukocytosis, along with her UTI. #8. May require home health upon discharge given her ambulatory dysfunction. She feels nervous about going home because shes scared she'll have another fall. Will need PT's recommendations for this as well. <Andrew Stout - Last Filed: 05/20/18 18:41> H&P History of Present Illness - General Admit Problem/Dx: Admission Diagnosis/Problem Admission Diagnosis/Problem Syncope - History of Present Illness Initial Comments - Free Text/Narative: Patient hit head on the door when she fell and lost consciousness. She passed out for few minutes, no one was with her at home. She felt jittery that day ( had some shakiness) no cold sweats, smoked 8 cigarettes that day. Did not check her blood sugars to see if they are low. She took 30 units of levemir at bedtime and insulin on sliding scale after meals , her insulin regimen was recently changed. No history of syncope previously. She states that she can walk in the house without the walker. After the fall she could not walk at all , she crawled on the floor , unable to reach the phone until her came and he gave her the phone. She was on prednisone at home . She states her oxygen is in usually in the 98 and she did not have confusion, somnolence and she is not a Co2 retainer. Exam - Vital Signs Vital Signs: Last Vital Signs Temp 97.8 F 05/20/18 16:00 Pulse 85 05/20/18 16:00 Resp 18 05/20/18 16:00 BP 101/50 L 05/20/18 16:00 Pulse Ox 95 05/20/18 16:00 - Patient Data Lab Results Last 24 hrs: Laboratory Results - last 24 hr 05/20/18 05/20/18 05/20/18 Range/Units 00:45 00:45 00:45 WBC 15.48 H (4.0-11.0) K/uL RBC 4.61 (4.30-5.90) M/uL Hgb 11.9 L (12.0-16.0) g/dL Hct 36.2 (36.0-46.0) % MCV 78.5 L (80.0-98.0) fL MCH 25.8 L (27.0-32.0) pg MCHC 32.9 (31.0-37.0) g/dL RDW Std Deviation 49.6 (28.0-62.0) fl RDW Coeff of Franki 18 H (11.0-15.0) % Plt Count 307 (150-400) K/uL MPV 10.40 (7.40-12.00) fL Neut % (Auto) 78.0 (48.0-80.0) % Lymph % (Auto) 13.8 L (16.0-40.0) % [place]ift % (Auto) 7.9 (0.0-15.0) % Eos % (Auto) 0.1 (0.0-7.0) % Baso % (Auto) 0.2 (0.0-1.5) % Neut # (Auto) 12.1 H (1.4-5.7) K/uL Lymph # (Auto) 2.1 (0.6-2.4) K/uL [place]ift # (Auto) 1.2 H (0.0-0.8) K/uL Eos # (Auto) 0.0 (0.0-0.7) K/uL Baso # (Auto) 0.0 (0.0-0.1) K/uL Neutrophils % (Manual) (48.0-80.0) % Band Neutrophils % % Lymphocytes % (Manual) (16.0-40.0) % Monocytes % (Manual) (0.0-15.0) % Nucleated RBC % /100WBC Absolute Seg Neuts (1.4-5.7) Band Neutrophils # Lymphocytes # (Manual) (0.6-2.4) Monocytes # (Manual) (0.0-0.8) Nucleated RBCs # K/uL INR 0.97 Lactate (0.20-2.00) mmol/L Sodium 133 L (136-145) mmol/L Potassium 4.5 (3.5-5.1) mmol/L Chloride 97 L (98-107) mmol/L Carbon Dioxide 23.2 (21.0-32.0) mmol/L BUN 103 H (7.0-18.0) mg/dL Creatinine 2.7 H (0.6-1.0) mg/dL Est Cr Clr Drug Dosing TNP Estimated GFR (MDRD) 17.0 ml/min Glucose 198 H (74-106) mg/dL POC Glucose (60-110) mg/dL Hemoglobin A1c (4.5-6.2) % Calcium 9.2 (8.5-10.1) mg/dL Magnesium 2.1 (1.8-2.4) mg/dL Total Bilirubin 0.2 (0.2-1.0) mg/dL AST 20 (15-37) IU/L ALT 24 (14-63) IU/L Alkaline Phosphatase 58 (46-116) U/L Troponin I < 0.050 (0.000-0.056) ng/mL Total Protein 6.1 L (6.4-8.2) g/dL Albumin 2.5 L (3.4-5.0) g/dL Globulin 3.6 H (2.0-3.5) g/dL Albumin/Globulin Ratio 0.7 L (1.3-2.8) TSH 3rd Generation 1.60 (0.36-3.74) uIU/mL Urine Color Urine Appearance Urine pH (5.0-8.0) Ur Specific [place] (1.001-1.035) Urine Protein (NEGATIVE) mg/dL Urine Glucose (UA) (NEGATIVE) mg/dL Urine Ketones (NEGATIVE) mg/dL Urine Occult Blood (NEGATIVE) Urine Nitrite (NEGATIVE) Urine Bilirubin (NEGATIVE) Urine Urobilinogen (<2.0) EU/dL Ur Leukocyte Esterase (NEGATIVE) Urine RBC (0-2/HPF) Urine WBC (0-5/HPF) Ur Epithelial Cells (NONE-FEW) Urine Bacteria (NEGATIVE) 05/20/18 05/20/18 05/20/18 Range/Units 00:45 02:20 06:10 WBC (4.0-11.0) K/uL RBC (4.30-5.90) M/uL Hgb (12.0-16.0) g/dL Hct (36.0-46.0) % MCV (80.0-98.0) fL MCH (27.0-32.0) pg MCHC (31.0-37.0) g/dL RDW Std Deviation (28.0-62.0) fl RDW Coeff of Franki (11.0-15.0) % Plt Count (150-400) K/uL MPV (7.40-12.00) fL Neut % (Auto) (48.0-80.0) % Lymph % (Auto) (16.0-40.0) % [place] % (Auto) (0.0-15.0) % Eos % (Auto) (0.0-7.0) % Baso % (Auto) (0.0-1.5) % Neut # (Auto) (1.4-5.7) K/uL Lymph # (Auto) (0.6-2.4) K/uL [place] # (Auto) (0.0-0.8) K/uL Eos # (Auto) (0.0-0.7) K/uL Baso # (Auto) (0.0-0.1) K/uL Neutrophils % (Manual) (48.0-80.0) % Band Neutrophils % % Lymphocytes % (Manual) (16.0-40.0) % Monocytes % (Manual) (0.0-15.0) % Nucleated RBC % /100WBC Absolute Seg Neuts (1.4-5.7) Band Neutrophils # Lymphocytes # (Manual) (0.6-2.4) Monocytes # (Manual) (0.0-0.8) Nucleated RBCs # K/uL INR Lactate 1.2 (0.20-2.00) mmol/L Sodium (136-145) mmol/L Potassium (3.5-5.1) mmol/L Chloride (98-107) mmol/L Carbon Dioxide (21.0-32.0) mmol/L BUN (7.0-18.0) mg/dL Creatinine (0.6-1.0) mg/dL Est Cr Clr Drug Dosing Estimated GFR (MDRD) ml/min Glucose (74-106) mg/dL POC Glucose 169 H (60-110) mg/dL Hemoglobin A1c (4.5-6.2) % Calcium (8.5-10.1) mg/dL Magnesium (1.8-2.4) mg/dL Total Bilirubin (0.2-1.0) mg/dL AST (15-37) IU/L ALT (14-63) IU/L Alkaline Phosphatase (46-116) U/L Troponin I (0.000-0.056) ng/mL Total Protein (6.4-8.2) g/dL Albumin (3.4-5.0) g/dL Globulin (2.0-3.5) g/dL Albumin/Globulin Ratio (1.3-2.8) TSH 3rd Generation (0.36-3.74) uIU/mL Urine Color YELLOW Urine Appearance HAZY Urine pH 5.5 (5.0-8.0) Ur Specific [place] 1.010 (1.001-1.035) Urine Protein NEGATIVE (NEGATIVE) mg/dL Urine Glucose (UA) NEGATIVE (NEGATIVE) mg/dL Urine Ketones NEGATIVE (NEGATIVE) mg/dL Urine Occult Blood SMALL H (NEGATIVE) Urine Nitrite NEGATIVE (NEGATIVE) Urine Bilirubin NEGATIVE (NEGATIVE) Urine Urobilinogen 0.2 (<2.0) EU/dL Ur Leukocyte Esterase SMALL (NEGATIVE) Urine RBC 1-3 (0-2/HPF) Urine WBC 2-4 (0-5/HPF) Ur Epithelial Cells FEW (NONE-FEW) Urine Bacteria FEW (NEGATIVE) 05/20/18 05/20/18 05/20/18 Range/Units 06:47 06:47 11:16 WBC 16.18 H (4.0-11.0) K/uL RBC 4.59 (4.30-5.90) M/uL Hgb 11.9 L (12.0-16.0) g/dL Hct 35.9 L (36.0-46.0) % MCV 78.2 L (80.0-98.0) fL MCH 25.9 L (27.0-32.0) pg MCHC 33.1 (31.0-37.0) g/dL RDW Std Deviation 50.1 (28.0-62.0) fl RDW Coeff of Franki 18 H (11.0-15.0) % Plt Count 292 (150-400) K/uL MPV 10.00 (7.40-12.00) fL Neut % (Auto) (48.0-80.0) % Lymph % (Auto) (16.0-40.0) % [place]ift % (Auto) (0.0-15.0) % Eos % (Auto) (0.0-7.0) % Baso % (Auto) (0.0-1.5) % Neut # (Auto) (1.4-5.7) K/uL Lymph # (Auto) (0.6-2.4) K/uL [place] # (Auto) (0.0-0.8) K/uL Eos # (Auto) (0.0-0.7) K/uL Baso # (Auto) (0.0-0.1) K/uL Neutrophils % (Manual) 73 (48.0-80.0) % Band Neutrophils % 2 % Lymphocytes % (Manual) 18 (16.0-40.0) % Monocytes % (Manual) 7 (0.0-15.0) % Nucleated RBC % 0.0 /100WBC Absolute Seg Neuts 11.8 H (1.4-5.7) Band Neutrophils # 0.3 Lymphocytes # (Manual) 2.9 H (0.6-2.4) Monocytes # (Manual) 1.1 H (0.0-0.8) Nucleated RBCs # K/uL INR Lactate (0.20-2.00) mmol/L Sodium 136 (136-145) mmol/L Potassium 3.8 (3.5-5.1) mmol/L Chloride 101 (98-107) mmol/L Carbon Dioxide 25.2 (21.0-32.0) mmol/L BUN 96 H (7.0-18.0) mg/dL Creatinine 2.4 H (0.6-1.0) mg/dL Est Cr Clr Drug Dosing TNP Estimated GFR (MDRD) 19.5 ml/min Glucose 165 H (74-106) mg/dL POC Glucose 171 H (60-110) mg/dL Hemoglobin A1c (4.5-6.2) % Calcium 8.7 (8.5-10.1) mg/dL Magnesium (1.8-2.4) mg/dL Total Bilirubin 0.2 (0.2-1.0) mg/dL AST 18 (15-37) IU/L ALT 23 (14-63) IU/L Alkaline Phosphatase 59 (46-116) U/L Troponin I < 0.050 (0.000-0.056) ng/mL Total Protein 5.8 L (6.4-8.2) g/dL Albumin 2.4 L (3.4-5.0) g/dL Globulin 3.4 (2.0-3.5) g/dL Albumin/Globulin Ratio 0.7 L (1.3-2.8) TSH 3rd Generation (0.36-3.74) uIU/mL Urine Color Urine Appearance Urine pH (5.0-8.0) Ur Specific [place] (1.001-1.035) Urine Protein (NEGATIVE) mg/dL Urine Glucose (UA) (NEGATIVE) mg/dL Urine Ketones (NEGATIVE) mg/dL Urine Occult Blood (NEGATIVE) Urine Nitrite (NEGATIVE) Urine Bilirubin (NEGATIVE) Urine Urobilinogen (<2.0) EU/dL Ur Leukocyte Esterase (NEGATIVE) Urine RBC (0-2/HPF) Urine WBC (0-5/HPF) Ur Epithelial Cells (NONE-FEW) Urine Bacteria (NEGATIVE) 05/20/18 05/20/18 05/20/18 Range/Units 12:58 12:58 12:58 WBC 15.03 H (4.0-11.0) K/uL RBC 4.52 (4.30-5.90) M/uL Hgb 11.9 L (12.0-16.0) g/dL Hct 35.2 L (36.0-46.0) % MCV 77.9 L (80.0-98.0) fL MCH 26.3 L (27.0-32.0) pg MCHC 33.8 (31.0-37.0) g/dL RDW Std Deviation 50.3 (28.0-62.0) fl RDW Coeff of Franki 18 H (11.0-15.0) % Plt Count 384 (150-400) K/uL MPV 10.70 (7.40-12.00) fL Neut % (Auto) (48.0-80.0) % Lymph % (Auto) (16.0-40.0) % Tift % (Auto) (0.0-15.0) % Eos % (Auto) (0.0-7.0) % Baso % (Auto) (0.0-1.5) % Neut # (Auto) (1.4-5.7) K/uL Lymph # (Auto) (0.6-2.4) K/uL [place] # (Auto) (0.0-0.8) K/uL Eos # (Auto) (0.0-0.7) K/uL Baso # (Auto) (0.0-0.1) K/uL Neutrophils % (Manual) (48.0-80.0) % Band Neutrophils % % Lymphocytes % (Manual) (16.0-40.0) % Monocytes % (Manual) (0.0-15.0) % Nucleated RBC % 0.0 /100WBC Absolute Seg Neuts (1.4-5.7) Band Neutrophils # Lymphocytes # (Manual) (0.6-2.4) Monocytes # (Manual) (0.0-0.8) Nucleated RBCs # 0 K/uL INR Lactate 1.0 (0.20-2.00) mmol/L Sodium (136-145) mmol/L Potassium (3.5-5.1) mmol/L Chloride (98-107) mmol/L Carbon Dioxide (21.0-32.0) mmol/L BUN (7.0-18.0) mg/dL Creatinine (0.6-1.0) mg/dL Est Cr Clr Drug Dosing Estimated GFR (MDRD) ml/min Glucose (74-106) mg/dL POC Glucose (60-110) mg/dL Hemoglobin A1c (4.5-6.2) % Calcium (8.5-10.1) mg/dL Magnesium (1.8-2.4) mg/dL Total Bilirubin (0.2-1.0) mg/dL AST (15-37) IU/L ALT (14-63) IU/L Alkaline Phosphatase (46-116) U/L Troponin I < 0.050 (0.000-0.056) ng/mL Total Protein (6.4-8.2) g/dL Albumin (3.4-5.0) g/dL Globulin (2.0-3.5) g/dL Albumin/Globulin Ratio (1.3-2.8) TSH 3rd Generation (0.36-3.74) uIU/mL Urine Color Urine Appearance Urine pH (5.0-8.0) Ur Specific [place] (1.001-1.035) Urine Protein (NEGATIVE) mg/dL Urine Glucose (UA) (NEGATIVE) mg/dL Urine Ketones (NEGATIVE) mg/dL Urine Occult Blood (NEGATIVE) Urine Nitrite (NEGATIVE) Urine Bilirubin (NEGATIVE) Urine Urobilinogen (<2.0) EU/dL Ur Leukocyte Esterase (NEGATIVE) Urine RBC (0-2/HPF) Urine WBC (0-5/HPF) Ur Epithelial Cells (NONE-FEW) Urine Bacteria (NEGATIVE) 05/20/18 05/20/18 Range/Units 12:58 16:18 WBC (4.0-11.0) K/uL RBC (4.30-5.90) M/uL Hgb (12.0-16.0) g/dL Hct (36.0-46.0) % MCV (80.0-98.0) fL MCH (27.0-32.0) pg MCHC (31.0-37.0) g/dL RDW Std Deviation (28.0-62.0) fl RDW Coeff of Franki (11.0-15.0) % Plt Count (150-400) K/uL MPV (7.40-12.00) fL Neut % (Auto) (48.0-80.0) % Lymph % (Auto) (16.0-40.0) % Tift % (Auto) (0.0-15.0) % Eos % (Auto) (0.0-7.0) % Baso % (Auto) (0.0-1.5) % Neut # (Auto) (1.4-5.7) K/uL Lymph # (Auto) (0.6-2.4) K/uL Tift # (Auto) (0.0-0.8) K/uL Eos # (Auto) (0.0-0.7) K/uL Baso # (Auto) (0.0-0.1) K/uL Neutrophils % (Manual) (48.0-80.0) % Band Neutrophils % % Lymphocytes % (Manual) (16.0-40.0) % Monocytes % (Manual) (0.0-15.0) % Nucleated RBC % /100WBC Absolute Seg Neuts (1.4-5.7) Band Neutrophils # Lymphocytes # (Manual) (0.6-2.4) Monocytes # (Manual) (0.0-0.8) Nucleated RBCs # K/uL INR Lactate (0.20-2.00) mmol/L Sodium (136-145) mmol/L Potassium (3.5-5.1) mmol/L Chloride (98-107) mmol/L Carbon Dioxide (21.0-32.0) mmol/L BUN (7.0-18.0) mg/dL Creatinine (0.6-1.0) mg/dL Est Cr Clr Drug Dosing Estimated GFR (MDRD) ml/min Glucose (74-106) mg/dL POC Glucose 185 H (60-110) mg/dL Hemoglobin A1c 7.9 H (4.5-6.2) % Calcium (8.5-10.1) mg/dL Magnesium (1.8-2.4) mg/dL Total Bilirubin (0.2-1.0) mg/dL AST (15-37) IU/L ALT (14-63) IU/L Alkaline Phosphatase (46-116) U/L Troponin I (0.000-0.056) ng/mL Total Protein (6.4-8.2) g/dL Albumin (3.4-5.0) g/dL Globulin (2.0-3.5) g/dL Albumin/Globulin Ratio (1.3-2.8) TSH 3rd Generation (0.36-3.74) uIU/mL Urine Color Urine Appearance Urine pH (5.0-8.0) Ur Specific [place] (1.001-1.035) Urine Protein (NEGATIVE) mg/dL Urine Glucose (UA) (NEGATIVE) mg/dL Urine Ketones (NEGATIVE) mg/dL Urine Occult Blood (NEGATIVE) Urine Nitrite (NEGATIVE) Urine Bilirubin (NEGATIVE) Urine Urobilinogen (<2.0) EU/dL Ur Leukocyte Esterase (NEGATIVE) Urine RBC (0-2/HPF) Urine WBC (0-5/HPF) Ur Epithelial Cells (NONE-FEW) Urine Bacteria (NEGATIVE) Result Diagrams: 05/20/18 12:58 05/20/18 06:47 Orders Last 24hrs: Active Orders 24 hr Category Date Time Status Patient Status [ADT] Stat ADT 05/20/18 03:24 Active Accu Check [Blood Glucose Check, Bedside] [RC] Care 05/20/18 07:30 Active QIDACANDBED Activity as Tolerated [RC] .Routine Care 05/20/18 05:13 Active Cardiac Monitoring [RC] . DIRECTED Care 05/20/18 01:21 Active Insert Abarca Catheter [Insert Urinary Catheter] [OM.PC] Care 05/20/18 05:15 Ordered Q24H Neuro Check [RC] Q2HR Care 05/20/18 08:56 Active Orthostatic Vital Signs [RC] ASDIRECTED Care 05/20/18 05:10 Active Pulse Oximetry [RC] ASDIRECTED Care 05/20/18 01:21 Active RT Aerosol Therapy [RC] ASDIRECTED Care 05/20/18 08:55 Active Urinary Catheter Assessment [RC] ASDIRECTED Care 05/20/18 05:08 Active Consult to Physical Therapy [PT Evaluation and Cons 05/20/18 05:13 Active Treatment] [CONS] Routine ADA Diabetic [[place] [employer] Diet] [DIET Diet 05/20/18 Breakfast Active ] Carotid Comp [US] Routine Exams 05/20/18 13:08 Taken Echo Comp wo Cont [US] Routine Exams 05/20/18 05:12 Ordered BASIC METABOLIC PANEL,BMP [CHEM] AM Lab 05/21/18 05:11 Ordered CBC WITH AUTO DIFF [HEME] AM Lab 05/21/18 05:11 Ordered CULTURE URINE [RM] Stat Lab 05/20/18 02:30 Received UA W/MICROSCOPIC [URIN] Stat Lab 05/20/18 02:20 Ordered Acetaminophen [Tylenol] Med 05/20/18 11:37 Active 650 mg PO Q4H PRN Albuterol/Ipratropium [DuoNeb 3.0-0.5 MG/3 ML] Med 05/20/18 08:55 Active 3 ml NEB Q4HRRT PRN Aspirin Med 05/20/18 10:45 Active 81 mg PO DAILY Enalapril [Vasotec] Med 05/20/18 10:45 Active 10 mg PO DAILY Gabapentin [Neurontin] Med 05/20/18 21:00 Active 300 mg PO BID Heparin Sodium Med 05/20/18 05:30 Active 5,000 units SUBCUT Q12H Hydrochlorothiazide Med 05/21/18 09:00 Active 25 mg PO DAILY Insulin Aspart [NovoLOG] Med 05/20/18 07:30 Active See Protocol SUBCUT ACBED Lactated Ringers [Ringers, Lactated] 1,000 ml Med 05/20/18 05:15 Active IV ASDIRECTED Patient's Own Medication [Ptom] Med 05/20/18 13:15 Active 0 each INH ASDIRECTED Rosuvastatin [Crestor] Med 05/21/18 21:00 Active 5 mg PO SuTuThSa@2100 Sodium Chloride 0.9% [Normal Saline] 500 ml Med 05/20/18 09:15 Active IV .BOLUS Sodium Chloride 0.9% [Normal Saline] 500 ml Med 05/20/18 01:30 Active IV STAT Sodium Chloride 0.9% [Saline Flush] Med 05/20/18 01:22 Active 10 ml FLUSH ASDIRECTED PRN Sodium Chloride 0.9% [Saline Flush] Med 05/20/18 01:22 Active 2.5 ml FLUSH ASDIRECTED PRN amLODIPine [Norvasc] Med 05/20/18 13:15 Active 10 mg PO DAILY Saline Lock Insert [OM.PC] Stat Oth 05/20/18 01:21 Ordered Medication Orders Acetaminophen (Tylenol) 650 mg PO Q4H PRN PRN Reason: Pain Last Admin: 05/20/18 12:26 Dose: 650 mg Albuterol/Ipratropium (Duoneb 3.0-0.5 Mg/3 Ml) 3 ml NEB Q4HRRT PRN PRN Reason: Wheezing Amlodipine Besylate (Norvasc) 10 mg PO DAILY [facility] Last Admin: 05/20/18 14:06 Dose: Aspirin (Aspirin) 81 mg PO DAILY [facility] Last Admin: 05/20/18 11:24 Dose: 81 mg Enalapril Maleate (Vasotec) 10 mg PO DAILY [facility] Last Admin: 05/20/18 11:27 Dose: Gabapentin (Neurontin) 300 mg PO BID [facility] Heparin Sodium (Porcine) (Heparin Sodium) 5,000 units SUBCUT Q12H [facility] Last Admin: 05/20/18 17:23 Dose: 5,000 units Admin: 05/20/18 05:47 Dose: 5,000 units Hydrochlorothiazide (Hydrochlorothiazide) 25 mg PO DAILY [facility] Sodium Chloride (Normal Saline) 500 mls @ 999 mls/hr IV STAT [facility] Last Admin: 05/20/18 14:01 Dose: 999 mls/hr Infusion: 05/20/18 02:01 Dose: 999 mls/hr Admin: 05/20/18 01:30 Dose: 999 mls/hr Lactated Ringer's (Ringers, Lactated) 1,000 mls @ 75 mls/hr IV ASDIRECTED SHIV Last Admin: 05/20/18 05:45 Dose: 75 mls/hr Sodium Chloride (Normal Saline) 500 mls @ 999 mls/hr IV .BOLUS [facility] Insulin Aspart (Novolog) 0 unit SUBCUT ACBED SHIV; Protocol Last Admin: 05/20/18 17:24 Dose: 2 units Admin: 05/20/18 12:29 Dose: 2 units Admin: 05/20/18 07:27 Dose: 2 units Budesonide/Formoterol Fumarate [Symbicort 160-4.5 Mcg Inh 0 each INH ASDIRECTED [facility] Rosuvastatin Calcium (Crestor) 5 mg PO SuTuThSa@2100 [facility] Sodium Chloride (Saline Flush) 10 ml FLUSH ASDIRECTED PRN PRN Reason: Keep Vein Open Sodium Chloride (Saline Flush) 2.5 ml FLUSH ASDIRECTED PRN PRN Reason: Keep Vein Open Assessment/Plan Comment:: Patient seen and examined with resident , agree with assessment and plan.UA negative , will d/c ceftriaxone , leucocytosis due to prednisone. Syncope could be due to smoking , orthostatic hypotension induced by smoking or dehydration , hypoglycemia due to decreased kidney function and long acting insulin , arrhythmia . will f/up orthostatic Vs, Cardiac echo , carotid doppler head trauma - neurocheck until 8 pm ( time of head trauma yesterday.) tobacco abuse- patient counseled for more than 5 minutes to stop smoking U
[2018-05-20] MEDS: Aspirin 81 MG Tab.Chew PO SCH (11:24)
[2018-05-20] MEDS ORDERED: Acetaminophen 325 MG Tab PO PRN (11:37)
[2018-05-20] MEDS ORDERED: Budesonide/Formoterol Fumarate [Symbicort 160-4.5 Mcg Inh INH SCH (13:15)
[2018-05-20] MEDS: amLODIPine 5 MG Tab PO SCH (14:06)
--- NOTE | 2018-05-20 17:19 | CT ---
EXAM DATE: 05/20/18 PATIENT'S AGE: 78 Patient: JUAN SAHNI Facility: [place], [place] Site . Site : 1940 Study: CT Head [id number]/25/2018 1:54:07 AM Ordering Physician: Marika Sena Final Report: INDICATION: fall TECHNIQUE: CT Head without contrast. COMPARISON: None. FINDINGS: There is no sign of intracranial hemorrhage or mass effect. Diffuse cerebral atrophy. Nonspecific low-attenuation along the periventricular white matter, most likely related to chronic microvascular disease. The reddy-white differentiation is preserved. No abnormal intra-axial or extra-axial fluid collection. No acute disease of the visualized paranasal sinuses and mastoid air cells. No fracture evident. No scalp hematoma/laceration. IMPRESSION: No acute intracranial process. Please note that all CT scans at this facility use dose modulation, iterative reconstruction, and/or weight-based dosing when appropriate to reduce radiation dose to as low as reasonably achievable. Dictated by: Sjai Wallace MD @ 05/20/2018 01:57:00 (Electronic Signature) ]Report Signed by Proxy. [facility]
--- NOTE | 2018-05-20 17:20 | CT ---
EXAM DATE: 05/20/18 PATIENT'S AGE: 78 Patient: JUAN SAHNI Facility: [place], [place] Site . Site : 1940 Study: CT Spine Cervical [id number]/25/2018 1:54:31 AM Ordering Physician: Marika Sena Final Report: INDICATION: fall TECHNIQUE: CT cervical spine without contrast COMPARISON: None FINDINGS: Vertebrae: Nonunited posterior arch at C1 vertebral body. This is nonspecific but can be seen as a normal variant versus remote posttraumatic deformity there are no fractures or suspicious bony lesions. Discs and facet joints: Multilevel degenerative changes. Extraspinal findings: Prevertebral soft tissues, visualized airway, and visualized lungs are unremarkable aside from atherosclerotic disease and obstructive lung disease changes. IMPRESSION: No acute abnormality of the cervical spine. Dictated by Saji Wallace MD @ 05/20/2018 1:59:46 AM Please note that all CT scans at this facility use dose modulation, iterative reconstruction, and/or weight-based dosing when appropriate to reduce radiation dose to as low as reasonably achievable. Dictated by: Saji Wallace MD @ 05/20/2018 01:59:51 (Electronic Signature) Report Signed by Proxy. [facility]
--- NOTE | 2018-05-20 17:22 | CR ---
EXAM DATE: 05/20/18 PATIENT'S AGE: 78 Patient: JUAN SAHNI Facility: [place], [place] Site . Site : 1940 Study: XRay Chest [id number]/25/2018 2:06:41 AM Ordering Physician: Marika Sena Final Report: INDICATION: Fall, chest injury TECHNIQUE: Chest radiograph 1 view COMPARISON: 01/23/2012 FINDINGS: Moderate degradation of image quality noted due to body habitus. Mediastinum: Severe cardiomegaly is present and new from prior examination with mediastinal widening. Lungs: Mild pulmonary vascular congestion noted. No sign of pleural effusion seen. No pneumothorax is identified. Bones and soft tissue: Unremarkable for age. IMPRESSION: 1. Severe cardiomegaly is present and new from prior examination with mediastinal widening. Assessment with chest CT may be helpful. A copy of this report was faxed to Dr. Hairston at approximately 2:08 AM. Dictated by Del Yu MD @ 05/20/2018 2:08:01 AM Dictated by: Del Yu MD @ 05/20/2018 02:08:21 (Electronic Signature) Report Signed by Proxy. [facility]
--- NOTE | 2018-05-20 17:23 | CR ---
EXAM DATE: 05/20/18 PATIENT'S AGE: 78 Patient: JUAN SAHNI Facility: [place], [place] Site . Site : 1940 Study: XRay Extremity Bilateral [id number]/25/2018 2:07:01 AM Ordering Physician: Marika Sena Final Report: INDICATION: Fall with hip pain TECHNIQUE: Pelvis radiograph, Hip radiograph 5 views bilateral COMPARISON: None FINDINGS: Severe degradation of image quality noted due to body habitus. Bones: No acute fractures or aggressive bone lesions are identified. Joints: The hip joint is unremarkable. The visualized sacroiliac joints are unremarkable in appearance. The pubic symphysis is normal in appearance. Soft tissues: Overlying fabric artifacts moderately limits the evaluation of the soft tissues. Gas-filled bowel loops is seen over the left lower quadrant which may be due to eventration or hernia. No radiopaque foreign bodies are seen. IMPRESSION: 1. No acute osseous injuries or abnormalities are noted. Dictated by Del Yu MD @ 05/20/2018 2:09:41 AM Dictated by: Del Yu MD @ 05/20/2018 02:09:43 (Electronic Signature) Report Signed by Proxy. [facility]
--- NOTE | 2018-05-20 17:26 | CR ---
EXAM DATE: 05/20/18 PATIENT'S AGE: 78 Patient: JUAN SAHNI Facility: [place], [place] Site . Site : 1940 Study: XRay Chest [id number]/25/2018 2:34:32 AM Ordering Physician: Marika Sena Final Report: INDICATION: Shortness of breath TECHNIQUE: Chest radiograph 1 view COMPARISON: 05/20/2018 FINDINGS: Moderate degradation of image quality noted due to body habitus. Mediastinum: The heart silhouette is normal in size and morphology. The mediastinum is normal in appearance. Lungs: Both lungs are unremarkable in appearance. No sign of pleural effusion seen. No pneumothorax is identified. Bones and soft tissue: Unremarkable for age. IMPRESSION: 1. No acute cardiopulmonary disease is seen. The mediastinal widening and cardiomegaly noted on prior exam was likely artifactual from portable supine technique. Dictated by: Del Yu MD @ 05/20/2018 02:38:16 (Electronic Signature) Report Signed by Proxy. [facility]
[2018-05-20] MEDS: Gabapentin 300 MG Cap PO SCH (20:40)
[2018-05-21] MEDS: Heparin Sodium 5,000 Units/ML Vial SUBCUT SCH ×2 (05:48→16:39)
[2018-05-21] MEDS: Cephalexin 500 MG Cap PO SCH ×2 (05:49→18:14)
[2018-05-21 06:21] LABS: CHLORIDE,CL 105 mmol/L (98-107); SODIUM,NA 139 mmol/L (136-145)
[2018-05-21] MEDS: Insulin Aspart 100 Units/ML 3 ML Pen SUBCUT SCH ×4 (06:45→21:39)
[2018-05-21] MEDS ORDERED: Hydrochlorothiazide 25 MG Tab PO SCH (09:00)
[2018-05-21] MEDS: Aspirin 81 MG Tab.Chew PO SCH (09:16)
[2018-05-21] MEDS: Gabapentin 300 MG Cap PO SCH (09:16)
--- NOTE | 2018-05-21 10:03 | US ---
EXAM DATE: 05/20/18 PATIENT'S AGE: 78 Patient: JUAN SAHNI Facility: [place], [place] Site . Site : 1940 Study: US Neck Angio [id number]/25/2018 4:29:32 PM Ordering Physician: Argelia Morales Final Report: INDICATION: Syncope. TECHNIQUE: Ultrasound carotid bilateral arterial duplex with color Doppler and spectral Doppler analysis. COMPARISON: January 04, 2016. FINDINGS: Multiple sonographic images with reddy-scale, color Doppler and spectral Doppler analysis were obtained demonstrate visualized atherosclerotic plaque in the carotid arteries bilaterally. Velocities are within normal limits bilaterally. The right ICA/CCA ratio is 1.4 and the left ICA/CCA ratio is 0.7. Spectral waveforms are normal. Both vertebral arteries are antegrade. IMPRESSION: 1. Bilateral carotid artery atherosclerosis, most severe on the left. 2. Estimated stenosis in the right internal carotid artery is less than 50% by NASCET criteria. 3. Estimated stenosis in the left internal carotid artery is less than 50% by NASCET criteria. Dictated by Ron Gardner MD @ May 20 2018 4:59PM (Electronic Signature) Report Signed by Proxy. [facility]
[2018-05-21] MEDS: amLODIPine 5 MG Tab PO SCH (10:55)
[2018-05-21] MEDS ORDERED: Tiotropium Inhaler 18 MCG Inhalation Powder Cap Kit of 5 INH ONE (11:05)
[2018-05-21] MEDS: Lactated Ringers 1,000 ML IV SCH (12:55)
[2018-05-21] MEDS: Albuterol 0.083% 2.5 MG/3 ML Neb Soln NEB SCH ×3 (14:35→21:10)
[2018-05-21] MEDS: Cyanocobalamin (Vitamin B12) 1,000 MCG/ML SDV SUBCUT SCH (16:29)
[2018-05-21] MEDS: Tiotropium Inhaler 18 MCG Inhalation Powder Cap Kit of 5 INH SCH (16:29)
--- NOTE | 2018-05-21 17:42 | PCM.PN ---
<Freddy Abreu - Last Filed: 05/21/18 17:38> - General Info Date of Service: 05/21/18 Subjective Update: states that she still feels weak and fears walking. Denies any pain, fever, chills nausea. - Review of Systems General: Reports: No Symptoms HEENT: Reports: No Symptoms Pulmonary: Reports: No Symptoms Cardiovascular: Reports: No Symptoms Gastrointestinal: Reports: No Symptoms Genitourinary: Reports: No Symptoms Musculoskeletal: Reports: No Symptoms Skin: Reports: No Symptoms Neurological: Reports: No Symptoms Psychiatric: Reports: No Symptoms - Patient Data Vitals - Most Recent: Last Vital Signs Temp 35.9 C 05/21/18 16:00 Pulse 86 05/21/18 16:00 Resp 22 H 05/21/18 16:00 BP 114/52 L 05/21/18 16:00 Pulse Ox 92 L 05/21/18 16:00 Weight - Most Recent: 200 lb I&O - Last 24 Hours: Intake & Output 05/21/18 05/21/18 05/21/18 06:59 14:59 22:59 Intake Total 500 680 Output Total 1000 1175 Balance -500 -495 Lab Results Last 24 Hours: Laboratory Results - last 24 hr 05/20/18 05/21/18 05/21/18 Range/Units 20:44 05:26 05:26 WBC 10.61 (4.0-11.0) K/uL RBC 4.09 L (4.30-5.90) M/uL Hgb 10.5 L (12.0-16.0) g/dL Hct 32.4 L (36.0-46.0) % MCV 79.2 L (80.0-98.0) fL MCH 25.7 L (27.0-32.0) pg MCHC 32.4 (31.0-37.0) g/dL RDW Std Deviation 51.0 (28.0-62.0) fl RDW Coeff of Franki 18 H (11.0-15.0) % Plt Count 298 (150-400) K/uL MPV 9.90 (7.40-12.00) fL Neut % (Auto) 66.2 (48.0-80.0) % Lymph % (Auto) 22.6 (16.0-40.0) % [place] % (Auto) 9.9 (0.0-15.0) % Eos % (Auto) 1.0 (0.0-7.0) % Baso % (Auto) 0.3 (0.0-1.5) % Neut # (Auto) 7.0 H (1.4-5.7) K/uL Lymph # (Auto) 2.4 (0.6-2.4) K/uL [place] # (Auto) 1.1 H (0.0-0.8) K/uL Eos # (Auto) 0.1 (0.0-0.7) K/uL Baso # (Auto) 0.0 (0.0-0.1) K/uL Nucleated RBC % 0.0 /100WBC Nucleated RBCs # 0 K/uL Sodium 139 (136-145) mmol/L Potassium 3.8 (3.5-5.1) mmol/L Chloride 105 (98-107) mmol/L Carbon Dioxide 22.5 (21.0-32.0) mmol/L BUN 77 H (7.0-18.0) mg/dL Creatinine 1.9 H (0.6-1.0) mg/dL Est Cr Clr Drug Dosing TNP Estimated GFR (MDRD) 25.6 ml/min Glucose 136 H (74-106) mg/dL POC Glucose 206 H (60-110) mg/dL Calcium 8.5 (8.5-10.1) mg/dL Vitamin B12 (193-986) pg/mL 05/21/18 05/21/18 05/21/18 Range/Units 05:26 05:50 11:48 WBC (4.0-11.0) K/uL RBC (4.30-5.90) M/uL Hgb (12.0-16.0) g/dL Hct (36.0-46.0) % MCV (80.0-98.0) fL MCH (27.0-32.0) pg MCHC (31.0-37.0) g/dL RDW Std Deviation (28.0-62.0) fl RDW Coeff of Franki (11.0-15.0) % Plt Count (150-400) K/uL MPV (7.40-12.00) fL Neut % (Auto) (48.0-80.0) % Lymph % (Auto) (16.0-40.0) % [place] % (Auto) (0.0-15.0) % Eos % (Auto) (0.0-7.0) % Baso % (Auto) (0.0-1.5) % Neut # (Auto) (1.4-5.7) K/uL Lymph # (Auto) (0.6-2.4) K/uL [place] # (Auto) (0.0-0.8) K/uL Eos # (Auto) (0.0-0.7) K/uL Baso # (Auto) (0.0-0.1) K/uL Nucleated RBC % /100WBC Nucleated RBCs # K/uL Sodium (136-145) mmol/L Potassium (3.5-5.1) mmol/L Chloride (98-107) mmol/L Carbon Dioxide (21.0-32.0) mmol/L BUN (7.0-18.0) mg/dL Creatinine (0.6-1.0) mg/dL Est Cr Clr Drug Dosing Estimated GFR (MDRD) ml/min Glucose (74-106) mg/dL POC Glucose 140 H 192 H (60-110) mg/dL Calcium (8.5-10.1) mg/dL Vitamin B12 338 (193-986) pg/mL 05/21/18 Range/Units 16:28 WBC (4.0-11.0) K/uL RBC (4.30-5.90) M/uL Hgb (12.0-16.0) g/dL Hct (36.0-46.0) % MCV (80.0-98.0) fL MCH (27.0-32.0) pg MCHC (31.0-37.0) g/dL RDW Std Deviation (28.0-62.0) fl RDW Coeff of Franki (11.0-15.0) % Plt Count (150-400) K/uL MPV (7.40-12.00) fL Neut % (Auto) (48.0-80.0) % Lymph % (Auto) (16.0-40.0) % [place] % (Auto) (0.0-15.0) % Eos % (Auto) (0.0-7.0) % Baso % (Auto) (0.0-1.5) % Neut # (Auto) (1.4-5.7) K/uL Lymph # (Auto) (0.6-2.4) K/uL [place] # (Auto) (0.0-0.8) K/uL Eos # (Auto) (0.0-0.7) K/uL Baso # (Auto) (0.0-0.1) K/uL Nucleated RBC % /100WBC Nucleated RBCs # K/uL Sodium (136-145) mmol/L Potassium (3.5-5.1) mmol/L Chloride (98-107) mmol/L Carbon Dioxide (21.0-32.0) mmol/L BUN (7.0-18.0) mg/dL Creatinine (0.6-1.0) mg/dL Est Cr Clr Drug Dosing Estimated GFR (MDRD) ml/min Glucose (74-106) mg/dL POC Glucose 196 H (60-110) mg/dL Calcium (8.5-10.1) mg/dL Vitamin B12 (193-986) pg/mL Saad Results Last 24 Hours: Microbiology 05/20/18 02:30 Urine Culture - Final Urine, Clean Catch MIXED KALEE >100,000 CFU/ML Med Orders - Current: Current Medications Acetaminophen (Tylenol) 650 mg PO Q4H PRN PRN Reason: Pain Last Admin: 05/20/18 12:26 Dose: 650 mg Albuterol (Proventil Neb Soln) 2.5 mg NEB Q4HRRT [facility] Last Admin: 05/21/18 17:07 Dose: 2.5 mg Amlodipine Besylate (Norvasc) 10 mg PO DAILY [facility] Last Admin: 05/21/18 10:55 Dose: Not Given Aspirin (Aspirin) 81 mg PO DAILY [facility] Last Admin: 05/21/18 09:16 Dose: 81 mg Calcium Carbonate (Caltrate 600+D 1500 Mg-400 Units) 1 tab PO BID [facility] Cephalexin (Keflex) 500 mg PO Q12H [facility] Last Admin: 05/21/18 05:49 Dose: 500 mg Cyanocobalamin (Vitamin B12) 1,000 mcg SUBCUT DAILY [facility] Last Admin: 05/21/18 16:29 Dose: 1,000 mcg Enalapril Maleate (Vasotec) 10 mg PO DAILY [facility] Last Admin: 05/21/18 10:56 Dose: Not Given Gabapentin (Neurontin) 300 mg PO BID [facility] Last Admin: 05/21/18 09:16 Dose: 300 mg Heparin Sodium (Porcine) (Heparin Sodium) 5,000 units SUBCUT Q12H [facility] Last Admin: 05/21/18 16:39 Dose: 5,000 units Hydrochlorothiazide (Hydrochlorothiazide) 25 mg PO DAILY [facility] Last Admin: 05/21/18 10:55 Dose: Not Given Sodium Chloride (Normal Saline) 500 mls @ 999 mls/hr IV STAT [facility] Last Admin: 05/20/18 14:01 Dose: 999 mls/hr Lactated Ringer's (Ringers, Lactated) 1,000 mls @ 75 mls/hr IV ASDIRECTED [facility] Last Admin: 05/21/18 12:55 Dose: 75 mls/hr Sodium Chloride (Normal Saline) 500 mls @ 999 mls/hr IV .BOLUS [facility] Insulin Aspart (Novolog) 0 unit SUBCUT ACBED [facility]; Protocol Last Admin: 05/21/18 16:40 Dose: 2 units Budesonide/Formoterol Fumarate [Symbicort 160-4.5 Mcg Inh 0 each INH ASDIRECTED [facility] Prednisone (Prednisone) 2 mg PO WITHBREAKFAST [facility] Rosuvastatin Calcium (Crestor) 5 mg PO SuTuThSa@2100 [facility] Sodium Chloride (Saline Flush) 10 ml FLUSH ASDIRECTED PRN PRN Reason: Keep Vein Open Sodium Chloride (Saline Flush) 2.5 ml FLUSH ASDIRECTED PRN PRN Reason: Keep Vein Open Tiotropium Rogers (Spiriva Handihaler) 18 mcg INH DAILY [facility] Last Admin: 05/21/18 16:29 Dose: 18 mcg Discontinued Medications Albuterol/Ipratropium (Duoneb 3.0-0.5 Mg/3 Ml) 3 ml NEB Q4HRRT PRN PRN Reason: Wheezing Ceftriaxone Sodium/Dextrose 1 (gm/ Premix) 50 mls @ 100 mls/hr IV ONETIME ONE Stop: 05/20/18 03:52 Last Admin: 05/20/18 03:36 Dose: 100 mls/hr Sodium Chloride (Normal Saline) 1,000 mls @ 75 mls/hr IV ASDIRECTED [facility] Last Admin: 05/20/18 03:36 Dose: 75 mls/hr Tiotropium Rogers (Spiriva Handihaler) 18 mcg INH ONETIME ONE Stop: 05/21/18 11:06 Last Admin: 05/21/18 16:15 Dose: Not Given - Exam Quality Assessment: Supplemental Oxygen General: Alert, Oriented HEENT: Pupils Equal, Pupils Reactive, EOMI, Mucous Membr. Moist/[place] Neck: Supple Lungs: Clear to Auscultation, Normal Respiratory Effort Cardiovascular: Regular Rate, Regular Rhythm GI/Abdominal Exam: Normal Bowel Sounds, Soft, Non-Tender, No Organomegaly, No Distention, No Abnormal Bruit, No Mass, Pelvis Stable Back Exam: Normal Inspection, Full Range of Motion Extremities: Normal Inspection, Normal Range of Motion, Non-Tender, No Pedal Edema, Normal Capillary Refill Skin: Warm, Dry, Intact Wound/Incisions: Healing Well Neurological: No New Focal Deficit Psy/Mental Status: Alert, Normal Affect, Normal Mood - Problem List Review Problem List Initiated/Reviewed/Updated: Yes - My Orders Last 24 Hours: My Active Orders 05/20/18 21:00 Gabapentin [Neurontin] 300 mg PO BID 05/21/18 06:00 Cephalexin [Keflex] 500 mg PO Q12H 05/21/18 10:33 Ready for Discharge [RC] PER UNIT ROUTINE 05/21/18 21:00 Rosuvastatin [Crestor] 5 mg PO SuTuThSa@2100 - Plan Plan:: Patient seen and examined with resident , agree with assessment and plan.UA negative , will d/c ceftriaxone , leucocytosis due to prednisone. Syncope could be due to smoking , orthostatic hypotension induced by smoking or dehydration , hypoglycemia due to decreased kidney function and long acting insulin , arrhythmia . will f/up orthostatic Vs, Cardiac echo , carotid doppler head trauma - neurocheck until 8 pm ( time of head trauma yesterday.) tobacco abuse- patient counseled for more than 5 minutes to stop smoking Assessment: #1. Ambulatory dysfunction #2. Hypoxia #3. History of COPD, tobacco abuse #4. UTI #5. CKD #6. T2DM #7. HTN Plan: #1. Patient still requiring 2L O2, will work on attempting to get her back to room air. If this fails, she will be discharged on home oxygen given her hx of copd. #2. Continue PT #3. Anticipate discharge tomorrow with keflex <Andrew Stout - Last Filed: 05/21/18 18:32> - General Info Subjective Update: Patient was evaluated for discharge today but she was fearing to go home today she states that she still feels weak .Her blood pressure today in low 90" and all her blood pressure medications were on hold , also her Long acting insulin Detemir. She required only 2-2-2-4 units of insulin with meals ~10 units of insulin aspart . She was evaluated for O2 at home and she needs 1 L of O2 at rest. Without O2 her O2 saturation at rest drops at 87%. Patient could walk across the hospital room but got very SOB and her O2 sat dropped to 80% She is on Prednisone 5 mg po daily , no wheezing , , good air entry , will taper prednisone to 2.5 mg po daily - Patient Data Vitals - Most Recent: Last Vital Signs Temp 96.7 F 05/21/18 16:00 Pulse 86 05/21/18 16:00 Resp 22 H 05/21/18 16:00 BP 114/52 L 05/21/18 16:00 Pulse Ox 92 L 05/21/18 16:00 I&O - Last 24 Hours: Intake & Output 05/21/18 05/21/18 05/21/18 06:59 14:59 22:59 Intake Total 500 680 Output Total 1000 1175 Balance -500 -495 Lab Results Last 24 Hours: Laboratory Results - last 24 hr 05/20/18 05/21/18 05/21/18 Range/Units 20:44 05:26 05:26 WBC 10.61 (4.0-11.0) K/uL RBC 4.09 L (4.30-5.90) M/uL Hgb 10.5 L (12.0-16.0) g/dL Hct 32.4 L (36.0-46.0) % MCV 79.2 L (80.0-98.0) fL MCH 25.7 L (27.0-32.0) pg MCHC 32.4 (31.0-37.0) g/dL RDW Std Deviation 51.0 (28.0-62.0) fl RDW Coeff of Franki 18 H (11.0-15.0) % Plt Count 298 (150-400) K/uL MPV 9.90 (7.40-12.00) fL Neut % (Auto) 66.2 (48.0-80.0) % Lymph % (Auto) 22.6 (16.0-40.0) % [place] % (Auto) 9.9 (0.0-15.0) % Eos % (Auto) 1.0 (0.0-7.0) % Baso % (Auto) 0.3 (0.0-1.5) % Neut # (Auto) 7.0 H (1.4-5.7) K/uL Lymph # (Auto) 2.4 (0.6-2.4) K/uL [place] # (Auto) 1.1 H (0.0-0.8) K/uL Eos # (Auto) 0.1 (0.0-0.7) K/uL Baso # (Auto) 0.0 (0.0-0.1) K/uL Nucleated RBC % 0.0 /100WBC Nucleated RBCs # 0 K/uL Sodium 139 (136-145) mmol/L Potassium 3.8 (3.5-5.1) mmol/L Chloride 105 (98-107) mmol/L Carbon Dioxide 22.5 (21.0-32.0) mmol/L BUN 77 H (7.0-18.0) mg/dL Creatinine 1.9 H (0.6-1.0) mg/dL Est Cr Clr Drug Dosing TNP Estimated GFR (MDRD) 25.6 ml/min Glucose 136 H (74-106) mg/dL POC Glucose 206 H (60-110) mg/dL Calcium 8.5 (8.5-10.1) mg/dL Vitamin B12 (193-986) pg/mL 05/21/18 05/21/18 05/21/18 Range/Units 05:26 05:50 11:48 WBC (4.0-11.0) K/uL RBC (4.30-5.90) M/uL Hgb (12.0-16.0) g/dL Hct (36.0-46.0) % MCV (80.0-98.0) fL MCH (27.0-32.0) pg MCHC (31.0-37.0) g/dL RDW Std Deviation (28.0-62.0) fl RDW Coeff of Franki (11.0-15.0) % Plt Count (150-400) K/uL MPV (7.40-12.00) fL Neut % (Auto) (48.0-80.0) % Lymph % (Auto) (16.0-40.0) % [place] % (Auto) (0.0-15.0) % Eos % (Auto) (0.0-7.0) % Baso % (Auto) (0.0-1.5) % Neut # (Auto) (1.4-5.7) K/uL Lymph # (Auto) (0.6-2.4) K/uL [place] # (Auto) (0.0-0.8) K/uL Eos # (Auto) (0.0-0.7) K/uL Baso # (Auto) (0.0-0.1) K/uL Nucleated RBC % /100WBC Nucleated RBCs # K/uL Sodium (136-145) mmol/L Potassium (3.5-5.1) mmol/L Chloride (98-107) mmol/L Carbon Dioxide (21.0-32.0) mmol/L BUN (7.0-18.0) mg/dL Creatinine (0.6-1.0) mg/dL Est Cr Clr Drug Dosing Estimated GFR (MDRD) ml/min Glucose (74-106) mg/dL POC Glucose 140 H 192 H (60-110) mg/dL Calcium (8.5-10.1) mg/dL Vitamin B12 338 (193-986) pg/mL 05/21/18 Range/Units 16:28 WBC (4.0-11.0) K/uL RBC (4.30-5.90) M/uL Hgb (12.0-16.0) g/dL Hct (36.0-46.0) % MCV (80.0-98.0) fL MCH (27.0-32.0) pg MCHC (31.0-37.0) g/dL RDW Std Deviation (28.0-62.0) fl RDW Coeff of Franki (11.0-15.0) % Plt Count (150-400) K/uL MPV (7.40-12.00) fL Neut % (Auto) (48.0-80.0) % Lymph % (Auto) (16.0-40.0) % [place] % (Auto) (0.0-15.0) % Eos % (Auto) (0.0-7.0) % Baso % (Auto) (0.0-1.5) % Neut # (Auto) (1.4-5.7) K/uL Lymph # (Auto) (0.6-2.4) K/uL [place] # (Auto) (0.0-0.8) K/uL Eos # (Auto) (0.0-0.7) K/uL Baso # (Auto) (0.0-0.1) K/uL Nucleated RBC % /100WBC Nucleated RBCs # K/uL Sodium (136-145) mmol/L Potassium (3.5-5.1) mmol/L Chloride (98-107) mmol/L Carbon Dioxide (21.0-32.0) mmol/L BUN (7.0-18.0) mg/dL Creatinine (0.6-1.0) mg/dL Est Cr Clr Drug Dosing Estimated GFR (MDRD) ml/min Glucose (74-106) mg/dL POC Glucose 196 H (60-110) mg/dL Calcium (8.5-10.1) mg/dL Vitamin B12 (193-986) pg/mL Saad Results Last 24 Hours: Microbiology 05/20/18 02:30 Urine Culture - Final Urine, Clean Catch MIXED KALEE >100,000 CFU/ML Med Orders - Current: Current Medications Acetaminophen (Tylenol) 650 mg PO Q4H PRN PRN Reason: Pain Last Admin: 05/20/18 12:26 Dose: 650 mg Albuterol (Proventil Neb Soln) 2.5 mg NEB Q4HRRT [facility] Last Admin: 05/21/18 17:07 Dose: 2.5 mg Amlodipine Besylate (Norvasc) 10 mg PO DAILY [facility] Last Admin: 05/21/18 10:55 Dose: Not Given Aspirin (Aspirin) 81 mg PO DAILY [facility] Last Admin: 05/21/18 09:16 Dose: 81 mg Calcium Carbonate (Caltrate 600+D 1500 Mg-400 Units) 1 tab PO BID [facility] Cephalexin (Keflex) 500 mg PO Q12H [facility] Last Admin: 05/21/18 05:49 Dose: 500 mg Cyanocobalamin (Vitamin B12) 1,000 mcg SUBCUT DAILY [facility] Last Admin: 05/21/18 16:29 Dose: 1,000 mcg Enalapril Maleate (Vasotec) 10 mg PO DAILY [facility] Last Admin: 05/21/18 10:56 Dose: Not Given Gabapentin (Neurontin) 300 mg PO BID [facility] Last Admin: 05/21/18 09:16 Dose: 300 mg Heparin Sodium (Porcine) (Heparin Sodium) 5,000 units SUBCUT Q12H [facility] Last Admin: 05/21/18 16:39 Dose: 5,000 units Hydrochlorothiazide (Hydrochlorothiazide) 25 mg PO DAILY [facility] Last Admin: 05/21/18 10:55 Dose: Not Given Sodium Chloride (Normal Saline) 500 mls @ 999 mls/hr IV STAT [facility] Last Admin: 05/20/18 14:01 Dose: 999 mls/hr Lactated Ringer's (Ringers, Lactated) 1,000 mls @ 75 mls/hr IV ASDIRECTED [facility] Last Admin: 05/21/18 12:55 Dose: 75 mls/hr Sodium Chloride (Normal Saline) 500 mls @ 999 mls/hr IV .BOLUS [facility] Insulin Aspart (Novolog) 0 unit SUBCUT ACBED [facility]; Protocol Last Admin: 05/21/18 16:40 Dose: 2 units Budesonide/Formoterol Fumarate [Symbicort 160-4.5 Mcg Inh 0 each INH ASDIRECTED [facility] Prednisone (Prednisone) 2 mg PO WITHBREAKFAST [facility] Rosuvastatin Calcium (Crestor) 5 mg PO SuTuThSa@2100 [facility] Sodium Chloride (Saline Flush) 10 ml FLUSH ASDIRECTED PRN PRN Reason: Keep Vein Open Sodium Chloride (Saline Flush) 2.5 ml FLUSH ASDIRECTED PRN PRN Reason: Keep Vein Open Tiotropium Rogers (Spiriva Handihaler) 18 mcg INH DAILY [facility] Last Admin: 05/21/18 16:29 Dose: 18 mcg Discontinued Medications Albuterol/Ipratropium (Duoneb 3.0-0.5 Mg/3 Ml) 3 ml NEB Q4HRRT PRN PRN Reason: Wheezing Ceftriaxone Sodium/Dextrose 1 (gm/ Premix) 50 mls @ 100 mls/hr IV ONETIME ONE Stop: 05/20/18 03:52 Last Admin: 05/20/18 03:36 Dose: 100 mls/hr Sodium Chloride (Normal Saline) 1,000 mls @ 75 mls/hr IV ASDIRECTED [facility] Last Admin: 05/20/18 03:36 Dose: 75 mls/hr Tiotropium Rogers (Spiriva Handihaler) 18 mcg INH ONETIME ONE Stop: 05/21/18 11:06 Last Admin: 05/21/18 16:15 Dose: Not Given - My Orders Last 24 Hours: My Active Orders 05/21/18 09:00 Hydrochlorothiazide 25 mg PO DAILY 05/21/18 11:05 RT Post Treatment Assessment [RC] Click to Edit RT Pre-Treatment Assessment [RC] Click to Edit 05/21/18 11:06 Communication Order [RC] PER UNIT ROUTINE 05/21/18 11:10 Consult to Home Health [CONS] Routine 05/21/18 13:10 RT Aerosol Therapy [RC] ASDIRECTED RT Post Treatment Assessment [RC] Click to Edit RT Pre-Treatment Assessment [RC] Click to Edit 05/21/18 13:15 Tiotropium [Spiriva HandiHaler] 18 mcg INH DAILY 05/21/18 14:00 Albuterol [Proventil Neb Soln] 2.5 mg NEB Q4HRRT 05/21/18 16:00 Cyanocobalamin (Vitamin B12) [Vitamin B12] 1,000 mcg SUBCUT DAILY 05/21/18 21:00 Calcium Carbonate/Vitamin D3 [Caltrate 600+D 1500 MG-400 Units] 1 tab PO BID 05/22/18 08:00 predniSONE 2 mg PO WITHBREAKFAST - Plan Plan:: Urine culture grew more than 100 000 colonies bacteria . Sensitivity pending A/p Syncope- could be due to hypoxia , tobacco use , hypoglycemia , hypotension- will hold blood pressure medication , O2 1 L at rest, hold insulin Detemir. Tobacco abuse - patient says she will stop smoking Copd - stable will taper steroids to 2.5 mg po daily , add spirive 18 mcg inh q 24 h UTI- will give patient keflex po acute on chronic kidney failure - improving creatinine. DM ID- d/c detemir- continue insulin on sliding scale with meals HTN- in low 90%- hold blood pressure medications, will reevaluate. Microcytic anemia- will start patient on iron sulphate 325 mg po TId iron studies start patient on Pepcid 10 mg po daily Low normal B12 level will start patient on B12 1000 mcg sq daily Neuropathy uncontrolled - 04/04 intensity - will increase gabapentine to 400 mg po TID dvt prof- scd Patient to be discharged home with home care D/c [place] cath difficulty walker- eval by Pt, she will need walker at home , d/c planning tomorrow with Home Care
[2018-05-21] MEDS ORDERED: Rosuvastatin 10 MG Tab PO SCH (21:00)
[2018-05-21] MEDS: Gabapentin 100 MG Cap PO SCH (21:33)
[2018-05-21] MEDS: Calcium Carbonate/Vitamin D3 1500 MG-400 Units Tab PO SCH (21:34)
[2018-05-22] MEDS: Albuterol 0.083% 2.5 MG/3 ML Neb Soln NEB SCH ×6 (02:04→22:44)
[2018-05-22] MEDS: Lactated Ringers 1,000 ML IV SCH (02:08)
[2018-05-22] MEDS: Cephalexin 500 MG Cap PO SCH ×2 (05:20→17:09)
[2018-05-22] MEDS: Heparin Sodium 5,000 Units/ML Vial SUBCUT SCH ×2 (05:20→17:09)
[2018-05-22] MEDS: Gabapentin 100 MG Cap PO SCH ×3 (05:20→22:44)
[2018-05-22] MEDS ORDERED: predniSONE 1 MG Tab PO SCH (08:00)
[2018-05-22] MEDS: Insulin Aspart 100 Units/ML 3 ML Pen SUBCUT SCH ×4 (08:19→22:42)
[2018-05-22] MEDS: Calcium Carbonate/Vitamin D3 1500 MG-400 Units Tab PO SCH ×2 (08:36→22:44)
[2018-05-22] MEDS: Aspirin 81 MG Tab.Chew PO SCH (08:39)
[2018-05-22] MEDS: Cyanocobalamin (Vitamin B12) 1,000 MCG/ML SDV SUBCUT SCH (08:40)
[2018-05-22] MEDS: Tiotropium Inhaler 18 MCG Inhalation Powder Cap Kit of 5 INH SCH (09:09)
[2018-05-22] MEDS ORDERED: Magnesium Sulfate/Water 2 GM in Premix Bag 1 BAG IV ONE (13:54)
[2018-05-22] MEDS ORDERED: Diltiazem IR 30 MG Tab PO SCH (14:30)
[2018-05-22] MEDS: Diltiazem 120 MG Cap.CD PO SCH (14:35)
--- NOTE | 2018-05-22 14:37 | PCM.PN ---
<Freddy Abreu - Last Filed: 05/22/18 14:32> - General Info Date of Service: 05/22/18 Subjective Update: Complains that she still feels weak and doesn't want to go home because she thinks she can't walk. Denies any chest pain, sob, nausea or vomiting. She complains of bilateral anterior thigh pain, which isn't new for her. - Review of Systems General: Reports: Other (see hpi) - Patient Data Vitals - Most Recent: Last Vital Signs Temp 37.1 C 05/22/18 11:00 Pulse 92 05/22/18 11:00 Resp 20 05/22/18 11:00 BP 109/43 L 05/22/18 11:00 Pulse Ox 95 05/22/18 11:00 Weight - Most Recent: 200 lb I&O - Last 24 Hours: Intake & Output 05/21/18 05/22/18 05/22/18 22:59 06:59 14:59 Intake Total 1543 1004 Output Total 1175 1050 Balance 368 -46 Lab Results Last 24 Hours: Laboratory Results - last 24 hr 05/21/18 05/21/18 05/22/18 Range/Units 16:28 21:32 06:12 WBC (4.0-11.0) K/uL RBC (4.30-5.90) M/uL Hgb (12.0-16.0) g/dL Hct (36.0-46.0) % MCV (80.0-98.0) fL MCH (27.0-32.0) pg MCHC (31.0-37.0) g/dL RDW Std Deviation (28.0-62.0) fl RDW Coeff of Franki (11.0-15.0) % Plt Count (150-400) K/uL MPV (7.40-12.00) fL Add Manual Diff Neutrophils % (Manual) (48.0-80.0) % Band Neutrophils % % Lymphocytes % (Manual) (16.0-40.0) % Monocytes % (Manual) (0.0-15.0) % Nucleated RBC % /100WBC Absolute Seg Neuts (1.4-5.7) Band Neutrophils # Lymphocytes # (Manual) (0.6-2.4) Monocytes # (Manual) (0.0-0.8) Nucleated RBCs # K/uL Sodium (136-145) mmol/L Potassium (3.5-5.1) mmol/L Chloride (98-107) mmol/L Carbon Dioxide (21.0-32.0) mmol/L BUN (7.0-18.0) mg/dL Creatinine (0.6-1.0) mg/dL Est Cr Clr Drug Dosing mL/min Estimated GFR (MDRD) ml/min Glucose (74-106) mg/dL POC Glucose 196 H 208 H 165 H (60-110) mg/dL Calcium (8.5-10.1) mg/dL Magnesium (1.8-2.4) mg/dL Total Bilirubin (0.2-1.0) mg/dL AST (15-37) IU/L ALT (14-63) IU/L Alkaline Phosphatase (46-116) U/L Total Protein (6.4-8.2) g/dL Albumin (3.4-5.0) g/dL Globulin (2.0-3.5) g/dL Albumin/Globulin Ratio (1.3-2.8) 05/22/18 05/22/18 05/22/18 Range/Units 11:21 11:21 11:25 WBC 13.62 H (4.0-11.0) K/uL RBC 4.07 L (4.30-5.90) M/uL Hgb 10.4 L (12.0-16.0) g/dL Hct 32.6 L (36.0-46.0) % MCV 80.1 (80.0-98.0) fL MCH 25.6 L (27.0-32.0) pg MCHC 31.9 (31.0-37.0) g/dL RDW Std Deviation 52.0 (28.0-62.0) fl RDW Coeff of Franki 18 H (11.0-15.0) % Plt Count 284 (150-400) K/uL MPV 9.80 (7.40-12.00) fL Add Manual Diff YES Neutrophils % (Manual) 82 H (48.0-80.0) % Band Neutrophils % 6 % Lymphocytes % (Manual) 6 L (16.0-40.0) % Monocytes % (Manual) 6 (0.0-15.0) % Nucleated RBC % 0.0 /100WBC Absolute Seg Neuts 11.2 H (1.4-5.7) Band Neutrophils # 0.8 Lymphocytes # (Manual) 0.8 (0.6-2.4) Monocytes # (Manual) 0.8 (0.0-0.8) Nucleated RBCs # 0 K/uL Sodium 138 (136-145) mmol/L Potassium 4.1 (3.5-5.1) mmol/L Chloride 102 (98-107) mmol/L Carbon Dioxide 25.1 (21.0-32.0) mmol/L BUN 47 H (7.0-18.0) mg/dL Creatinine 1.9 H (0.6-1.0) mg/dL Est Cr Clr Drug Dosing 23.73 mL/min Estimated GFR (MDRD) 25.6 ml/min Glucose 252 H (74-106) mg/dL POC Glucose 252 H (60-110) mg/dL Calcium 8.7 (8.5-10.1) mg/dL Magnesium 1.3 L (1.8-2.4) mg/dL Total Bilirubin 0.3 (0.2-1.0) mg/dL AST 18 (15-37) IU/L ALT 21 (14-63) IU/L Alkaline Phosphatase 56 (46-116) U/L Total Protein 5.1 L (6.4-8.2) g/dL Albumin 2.2 L (3.4-5.0) g/dL Globulin 2.9 (2.0-3.5) g/dL Albumin/Globulin Ratio 0.8 L (1.3-2.8) Med Orders - Current: Current Medications Acetaminophen (Tylenol) 650 mg PO Q4H PRN PRN Reason: Pain Last Admin: 05/20/18 12:26 Dose: 650 mg Albuterol (Proventil Neb Soln) 2.5 mg NEB Q4HRRT [facility] Last Admin: 05/22/18 14:10 Dose: 2.5 mg Aspirin (Aspirin) 81 mg PO DAILY [facility] Last Admin: 05/22/18 08:39 Dose: 81 mg Calcium Carbonate (Caltrate 600+D 1500 Mg-400 Units) 1 tab PO BID [facility] Last Admin: 05/22/18 08:36 Dose: 1 tab Cephalexin (Keflex) 500 mg PO Q12H [facility] Last Admin: 05/22/18 05:20 Dose: 500 mg Cyanocobalamin (Vitamin B12) 1,000 mcg SUBCUT DAILY [facility] Last Admin: 05/22/18 08:40 Dose: 1,000 mcg Diltiazem HCl (Cardizem Cd) 120 mg PO DAILY [facility] Gabapentin (Neurontin) 400 mg PO TID [facility] Last Admin: 05/22/18 05:20 Dose: 400 mg Heparin Sodium (Porcine) (Heparin Sodium) 5,000 units SUBCUT Q12H [facility] Last Admin: 05/22/18 05:20 Dose: 5,000 units Sodium Chloride (Normal Saline) 500 mls @ 999 mls/hr IV STAT [facility] Last Admin: 05/20/18 14:01 Dose: 999 mls/hr Lactated Ringer's (Ringers, Lactated) 1,000 mls @ 75 mls/hr IV ASDIRECTED [facility] Last Admin: 05/22/18 02:08 Dose: 75 mls/hr Sodium Chloride (Normal Saline) 500 mls @ 999 mls/hr IV .BOLUS [facility] Magnesium Sulfate 2 gm/ Premix 50 mls @ 50 mls/hr IV ONETIME ONE Stop: 05/22/18 14:53 Insulin Aspart (Novolog) 0 unit SUBCUT ACBED [facility]; Protocol Last Admin: 05/22/18 12:26 Dose: 6 units Budesonide/Formoterol Fumarate [Symbicort 160-4.5 Mcg Inh 0 each INH ASDIRECTED [facility] Prednisone (Prednisone) 2 mg PO WITHBREAKFAST [facility] Last Admin: 05/22/18 08:36 Dose: 2 mg Rosuvastatin Calcium (Crestor) 5 mg PO SuTuThSa@2100 [facility] Last Admin: 05/21/18 21:34 Dose: 5 mg Sodium Chloride (Saline Flush) 10 ml FLUSH ASDIRECTED PRN PRN Reason: Keep Vein Open Sodium Chloride (Saline Flush) 2.5 ml FLUSH ASDIRECTED PRN PRN Reason: Keep Vein Open Tiotropium [place] (Spiriva Handihaler) 18 mcg INH DAILY [facility] Last Admin: 05/22/18 09:09 Dose: 18 mcg Discontinued Medications Albuterol/Ipratropium (Duoneb 3.0-0.5 Mg/3 Ml) 3 ml NEB Q4HRRT PRN PRN Reason: Wheezing Amlodipine Besylate (Norvasc) 10 mg PO DAILY [facility] Last Admin: 05/21/18 10:55 Dose: Not Given Diltiazem HCl (Cardizem) 30 mg PO Q6HR [facility] Enalapril Maleate (Vasotec) 10 mg PO DAILY [facility] Last Admin: 05/21/18 10:56 Dose: Not Given Gabapentin (Neurontin) 300 mg PO BID [facility] Last Admin: 05/21/18 09:16 Dose: 300 mg Hydrochlorothiazide (Hydrochlorothiazide) 25 mg PO DAILY [facility] Last Admin: 05/21/18 10:55 Dose: Not Given Ceftriaxone Sodium/Dextrose 1 (gm/ Premix) 50 mls @ 100 mls/hr IV ONETIME ONE Stop: 05/20/18 03:52 Last Admin: 05/20/18 03:36 Dose: 100 mls/hr Sodium Chloride (Normal Saline) 1,000 mls @ 75 mls/hr IV ASDIRECTED [facility] Last Admin: 05/20/18 03:36 Dose: 75 mls/hr Tiotropium [place] (Spiriva Handihaler) 18 mcg INH ONETIME ONE Stop: 05/21/18 11:06 Last Admin: 05/21/18 16:15 Dose: Not Given - Exam Quality Assessment: Supplemental Oxygen General: Alert, Oriented HEENT: Pupils Equal Lungs: Clear to Auscultation, Normal Respiratory Effort Cardiovascular: Regular Rate, Regular Rhythm GI/Abdominal Exam: Normal Bowel Sounds, Soft Peripheral Pulses: 2+: Dorsalis Pedis (L), Dorsalis Pedis (R) Skin: Warm Neurological: No New Focal Deficit Psy/Mental Status: Alert, Normal Affect, Normal Mood - Problem List Review Problem List Initiated/Reviewed/Updated: Yes - My Orders Last 24 Hours: My Active Orders 05/21/18 21:00 Rosuvastatin [Crestor] 5 mg PO SuTuThSa@2100 05/22/18 08:21 EKG Documentation Completion [RC] STAT 05/22/18 11:38 Consult to Physician [CONS] Routine 05/22/18 11:39 Notify Provider Consults [RC] ASDIRECTED 05/22/18 14:29 MAGNESIUM [CHEM] Routine TSH [CHEM] Routine - Plan Plan:: Assessment: #1. Paroxysmal A. Fib #2. Ambulatory dysfunction #3. Hypoxia #4. UTI #5. Hypotension/Tachycardia - resolved Plan: #1. Consult cardiology for her noted a.fib episode last night. She is now sinus. Repeat EKG obtained this morning indicates sinus tach w/ RBB. #2. Continue to wean off o2 as possible #3. Keflex for UTI #4. Obtain magnesium, TSH #5. Have PT continue to work with her. She'll likely need to go home with home health + wheelchair/and home oxygen. <Andrew Stout - Last Filed: 05/22/18 14:57> - Patient Data Vitals - Most Recent: Last Vital Signs Temp 98.7 F 05/22/18 11:00 Pulse 92 05/22/18 11:00 Resp 20 05/22/18 11:00 BP 109/43 L 05/22/18 11:00 Pulse Ox 95 05/22/18 11:00 I&O - Last 24 Hours: Intake & Output 05/21/18 05/22/18 05/22/18 22:59 06:59 14:59 Intake Total 1543 1004 Output Total 1175 1050 Balance 368 -46 Lab Results Last 24 Hours: Laboratory Results - last 24 hr 05/21/18 05/21/18 05/22/18 Range/Units 16:28 21:32 06:12 WBC (4.0-11.0) K/uL RBC (4.30-5.90) M/uL Hgb (12.0-16.0) g/dL Hct (36.0-46.0) % MCV (80.0-98.0) fL MCH (27.0-32.0) pg MCHC (31.0-37.0) g/dL RDW Std Deviation (28.0-62.0) fl RDW Coeff of Franki (11.0-15.0) % Plt Count (150-400) K/uL MPV (7.40-12.00) fL Add Manual Diff Neutrophils % (Manual) (48.0-80.0) % Band Neutrophils % % Lymphocytes % (Manual) (16.0-40.0) % Monocytes % (Manual) (0.0-15.0) % Nucleated RBC % /100WBC Absolute Seg Neuts (1.4-5.7) Band Neutrophils # Lymphocytes # (Manual) (0.6-2.4) Monocytes # (Manual) (0.0-0.8) Nucleated RBCs # K/uL Sodium (136-145) mmol/L Potassium (3.5-5.1) mmol/L Chloride (98-107) mmol/L Carbon Dioxide (21.0-32.0) mmol/L BUN (7.0-18.0) mg/dL Creatinine (0.6-1.0) mg/dL Est Cr Clr Drug Dosing mL/min Estimated GFR (MDRD) ml/min Glucose (74-106) mg/dL POC Glucose 196 H 208 H 165 H (60-110) mg/dL Calcium (8.5-10.1) mg/dL Magnesium (1.8-2.4) mg/dL Total Bilirubin (0.2-1.0) mg/dL AST (15-37) IU/L ALT (14-63) IU/L Alkaline Phosphatase (46-116) U/L Total Protein (6.4-8.2) g/dL Albumin (3.4-5.0) g/dL Globulin (2.0-3.5) g/dL Albumin/Globulin Ratio (1.3-2.8) 05/22/18 05/22/18 05/22/18 Range/Units 11:21 11:21 11:25 WBC 13.62 H (4.0-11.0) K/uL RBC 4.07 L (4.30-5.90) M/uL Hgb 10.4 L (12.0-16.0) g/dL Hct 32.6 L (36.0-46.0) % MCV 80.1 (80.0-98.0) fL MCH 25.6 L (27.0-32.0) pg MCHC 31.9 (31.0-37.0) g/dL RDW Std Deviation 52.0 (28.0-62.0) fl RDW Coeff of Franki 18 H (11.0-15.0) % Plt Count 284 (150-400) K/uL MPV 9.80 (7.40-12.00) fL Add Manual Diff YES Neutrophils % (Manual) 82 H (48.0-80.0) % Band Neutrophils % 6 % Lymphocytes % (Manual) 6 L (16.0-40.0) % Monocytes % (Manual) 6 (0.0-15.0) % Nucleated RBC % 0.0 /100WBC Absolute Seg Neuts 11.2 H (1.4-5.7) Band Neutrophils # 0.8 Lymphocytes # (Manual) 0.8 (0.6-2.4) Monocytes # (Manual) 0.8 (0.0-0.8) Nucleated RBCs # 0 K/uL Sodium 138 (136-145) mmol/L Potassium 4.1 (3.5-5.1) mmol/L Chloride 102 (98-107) mmol/L Carbon Dioxide 25.1 (21.0-32.0) mmol/L BUN 47 H (7.0-18.0) mg/dL Creatinine 1.9 H (0.6-1.0) mg/dL Est Cr Clr Drug Dosing 23.73 mL/min Estimated GFR (MDRD) 25.6 ml/min Glucose 252 H (74-106) mg/dL POC Glucose 252 H (60-110) mg/dL Calcium 8.7 (8.5-10.1) mg/dL Magnesium 1.3 L (1.8-2.4) mg/dL Total Bilirubin 0.3 (0.2-1.0) mg/dL AST 18 (15-37) IU/L ALT 21 (14-63) IU/L Alkaline Phosphatase 56 (46-116) U/L Total Protein 5.1 L (6.4-8.2) g/dL Albumin 2.2 L (3.4-5.0) g/dL Globulin 2.9 (2.0-3.5) g/dL Albumin/Globulin Ratio 0.8 L (1.3-2.8) Med Orders - Current: Current Medications Acetaminophen (Tylenol) 650 mg PO Q4H PRN PRN Reason: Pain Last Admin: 05/20/18 12:26 Dose: 650 mg Albuterol (Proventil Neb Soln) 2.5 mg NEB Q4HRRT [facility] Last Admin: 05/22/18 14:10 Dose: 2.5 mg Aspirin (Aspirin) 81 mg PO DAILY [facility] Last Admin: 05/22/18 08:39 Dose: 81 mg Calcium Carbonate (Caltrate 600+D 1500 Mg-400 Units) 1 tab PO BID [facility] Last Admin: 05/22/18 08:36 Dose: 1 tab Cephalexin (Keflex) 500 mg PO Q12H [facility] Last Admin: 05/22/18 05:20 Dose: 500 mg Cyanocobalamin (Vitamin B12) 1,000 mcg SUBCUT DAILY [facility] Last Admin: 05/22/18 08:40 Dose: 1,000 mcg Diltiazem HCl (Cardizem Cd) 120 mg PO DAILY [facility] Gabapentin (Neurontin) 400 mg PO TID [facility] Last Admin: 05/22/18 14:34 Dose: 400 mg Heparin Sodium (Porcine) (Heparin Sodium) 5,000 units SUBCUT Q12H [facility] Last Admin: 05/22/18 05:20 Dose: 5,000 units Sodium Chloride (Normal Saline) 500 mls @ 999 mls/hr IV STAT [facility] Last Admin: 05/20/18 14:01 Dose: 999 mls/hr Lactated Ringer's (Ringers, Lactated) 1,000 mls @ 75 mls/hr IV ASDIRECTED [facility] Last Admin: 05/22/18 02:08 Dose: 75 mls/hr Sodium Chloride (Normal Saline) 500 mls @ 999 mls/hr IV .BOLUS [facility] Magnesium Sulfate 2 gm/ Premix 50 mls @ 50 mls/hr IV ONETIME ONE Stop: 05/22/18 14:53 Last Admin: 05/22/18 14:34 Dose: 50 mls/hr Insulin Aspart (Novolog) 0 unit SUBCUT ACBED [facility]; Protocol Last Admin: 05/22/18 12:26 Dose: 6 units Budesonide/Formoterol Fumarate [Symbicort 160-4.5 Mcg Inh 0 each INH ASDIRECTED [facility] Prednisone (Prednisone) 2 mg PO WITHBREAKFAST [facility] Last Admin: 05/22/18 08:36 Dose: 2 mg Rosuvastatin Calcium (Crestor) 5 mg PO SuTuThSa@2100 [facility] Last Admin: 05/21/18 21:34 Dose: 5 mg Sodium Chloride (Saline Flush) 10 ml FLUSH ASDIRECTED PRN PRN Reason: Keep Vein Open Sodium Chloride (Saline Flush) 2.5 ml FLUSH ASDIRECTED PRN PRN Reason: Keep Vein Open Tiotropium [place] (Spiriva Handihaler) 18 mcg INH DAILY [facility] Last Admin: 05/22/18 09:09 Dose: 18 mcg Discontinued Medications Albuterol/Ipratropium (Duoneb 3.0-0.5 Mg/3 Ml) 3 ml NEB Q4HRRT PRN PRN Reason: Wheezing Amlodipine Besylate (Norvasc) 10 mg PO DAILY [facility] Last Admin: 05/21/18 10:55 Dose: Not Given Diltiazem HCl (Cardizem) 30 mg PO Q6HR [facility] Enalapril Maleate (Vasotec) 10 mg PO DAILY [facility] Last Admin: 05/21/18 10:56 Dose: Not Given Gabapentin (Neurontin) 300 mg PO BID [facility] Last Admin: 05/21/18 09:16 Dose: 300 mg Hydrochlorothiazide (Hydrochlorothiazide) 25 mg PO DAILY [facility] Last Admin: 05/21/18 10:55 Dose: Not Given Ceftriaxone Sodium/Dextrose 1 (gm/ Premix) 50 mls @ 100 mls/hr IV ONETIME ONE Stop: 05/20/18 03:52 Last Admin: 05/20/18 03:36 Dose: 100 mls/hr Sodium Chloride (Normal Saline) 1,000 mls @ 75 mls/hr IV ASDIRECTED [facility] Last Admin: 05/20/18 03:36 Dose: 75 mls/hr Tiotropium [place] (Spiriva Handihaler) 18 mcg INH ONETIME ONE Stop: 05/21/18 11:06 Last Admin: 05/21/18 16:15 Dose: Not Given - My Orders Last 24 Hours: My Active Orders 05/21/18 14:00 Albuterol [Proventil Neb Soln] 2.5 mg NEB Q4HRRT 05/21/18 16:00 Cyanocobalamin (Vitamin B12) [Vitamin B12] 1,000 mcg SUBCUT DAILY 05/21/18 21:00 Calcium Carbonate/Vitamin D3 [Caltrate 600+D 1500 MG-400 Units] 1 tab PO BID 05/21/18 22:00 Gabapentin [Neurontin] 400 mg PO TID 05/22/18 06:16 Remove [place]barca Catheter [Urinary Catheter Removal] [RC] Per Unit Routine 05/22/18 08:00 predniSONE 2 mg PO WITHBREAKFAST 05/22/18 13:54 Magnesium Sulfate/Water [Magnesium Sulfate 2 GM in Water 50 ML] 2 gm Premix Bag 1 bag IV ONETIME 05/22/18 14:30 Diltiazem [Cardizem CD] 120 mg PO DAILY - Plan Plan:: Patient seen and examined . Agree with assessment and plan . For the afib with RVR patient was started on Cardizem CD 120 mg po q 24h She has very brief periods 1-2 min of afib for the past 24 h . Had hypomagnesiemia at 1.3 and it was corrected with magnesium sulphate 2 grams iv.
[2018-05-22] MEDS ORDERED: Apixaban 2.5 MG Tab PO ONE (15:53)
[2018-05-22] MEDS ORDERED: predniSONE 5 MG Tab PO ONE (16:13)
--- NOTE | 2018-05-22 17:17 | PCM.DCSUM1 ---
<Freddy Abreu - Last Filed: 05/22/18 17:04> Discharge Summary - Hospital Course Free Text/Narrative:: Admission date: 05/20/2018 Discharge date: 05/22/2018 Admission diagnosis: #1. Syncope resulting to fall secondary to ambulatory dysfunction #2. Right bundle branch block #3. History of T2DM, HTN, HLD, peripheral neuropathy #4. leukocytosis #5. UTI #6. Acute on chronic kidney disease Discharge diagnosis: #1. Syncope resulting to fall secondary to ambulatory dysfunction #2. Right bundle branch block attributed to hx of COPD #3. Paroxysmal a. fib #3. History of T2DM, HTN, HLD, peripheral neuropathy #4. leukocytosis - resolved #5. UTI - keflex PO #6. Acute on chronic kidney disease - improved #7. Hypomagnesemia - supplemented Hospital course: 78F that presented to the ER after having a syncopal episode at home. She was admitted for observation and syncope work up. On telemetry, she was found to have an isolated episode of a. fib w/RVR. This converted to sinus on its own. An echo obtained was unremarkable. She has normal TSH, magnesium was supplemented. Cardiology was consulted, who recommend cardizem 120mg PO daily, eliquis 2.5mg BID for her a.fib. She had ongoing ambulatory dysfunction attributed to generalized weakness and hypoxia because of her COPD. She is also being home w/ wheelchair and home oxygen on 2L via [place]. Patient is being discharged with home Home health. #1. Homebound - patient is unable to ambulate 20ft before becoming short of breath. Patient is unsteady and a possible fall risk as well. #2. Need for skilled service - PT: strengthening due to weakness from recent hospitalization #3. Primary MD - Dr. Meier will follow this patient for HH once d/c from the hospital. Diagnosis: Stroke: No - Discharge Data Discharge Date: 05/22/18 Discharge Disposition: Home, W Home Health Agency 06 Condition: Fair - Patient Summary/Data Consults: Consultations 05/20/18 05:13 Consult to Physical Therapy [PT Evaluation and Treatment] [CONS] Routine 05/21/18 11:10 Consult to Home Health [CONS] Routine 05/22/18 11:38 Consult to Physician [CONS] Routine - Patient Instructions Diet: Usual Diet as Tolerated Activity: As Tolerated Notify Provider of: Fever, Increased Pain, Swelling and Redness, Drainage, Nausea and/or Vomiting - Discharge Plan Prescriptions/Med Rec: Albuterol [Ventolin HFA] 2 puff INH Q4H PRN 30 Days #1 puff PRN Reason: Wheezing Apixaban [Eliquis] 2.5 mg PO BID 30 Days #60 tablet B12/Levomefolate Calcium/B-6 [Folbic Rf Tablet] 1 each PO DAILY 80 Days #90 tablet Cephalexin [Keflex] 500 mg PO Q12H 5 Days #10 cap Diltiazem [Cardizem CD] 120 mg PO DAILY 30 Days #30 cap.cd Famotidine [Pepcid AC] 10 mg PO DAILY #90 tablet Ferrous Sulfate 325 mg PO TID #90 tablet Furosemide [Lasix] 20 mg PO DAILY 30 Days #30 tablet Insulin Aspart [NovoLOG] See Protocol SQ WITHMEALSANDBED 30 Days #1 pen Home Medications: Home Meds Aspirin 1 tab PO DAILY 05/20/18 [History] Budesonide/Formoterol Fumarate [Symbicort 160-4.5 Mcg Inhaler] 1 puff INH ASDIRECTED 05/20/18 [History] Furosemide [Lasix] 1 tab PO DAILY 05/20/18 [History] Gabapentin [Neurontin] 1 cap PO BID 05/20/18 [History] Rosuvastatin Calcium 20 mg PO SUTUTHSA 05/20/18 [History] prednisoLONE [Millipred DP] 1 tab PO DAILY 05/20/18 [History] Albuterol [Ventolin HFA] 2 puff INH Q4H PRN 30 Days #1 puff 05/21/18 [Rx] B12/Levomefolate Calcium/B-6 [Folbic Rf Tablet] 1 each PO DAILY 80 Days #90 tablet 05/21/18 [Rx] Cephalexin [Keflex] 500 mg PO Q12H 5 Days #10 cap 05/21/18 [Rx] Famotidine [Pepcid AC] 10 mg PO DAILY #90 tablet 05/21/18 [Rx] Ferrous Sulfate 325 mg PO TID #90 tablet 05/21/18 [Rx] Insulin Aspart [NovoLOG] See Protocol SQ WITHMEALSANDBED 30 Days #1 pen [Rx] Apixaban [Eliquis] 2.5 mg PO BID 30 Days #60 tablet 05/22/18 [Rx] Diltiazem [Cardizem CD] 120 mg PO DAILY 30 Days #30 cap.cd 05/22/18 [Rx] Furosemide [Lasix] 20 mg PO DAILY 30 Days #30 tablet 05/22/18 [Rx] Patient Handouts: Famotidine tablets or gelcaps, Furosemide tablets, Insulin Aspart; Insulin Aspart Protamine injection, Albuterol inhalation aerosol, Urinary Tract Infection, Adult, [id number], Dehydration, Adult, [id number], Cephalexin tablets or capsules, Diltiazem tablets, Cyanocobalamin, Pyridoxine, and Folate, Apixaban oral tablets, Syncope Referrals: Axel Meier MD [Resident] - 05/28/18 10:15 am - Patient Data Vitals - Most Recent: Last Vital Signs Temp 37.1 C 05/22/18 11:00 Pulse 85 05/22/18 14:35 Resp 20 05/22/18 11:00 BP 127/56 L 05/22/18 14:35 Pulse Ox 95 05/22/18 11:00 Weight - Most Recent: 200 lb I&O - Last 24 hours: Intake & Output 05/22/18 05/22/18 05/22/18 06:59 14:59 22:59 Intake Total 1004 Output Total 1050 Balance -46 Lab Results - Last 24 hrs: Laboratory Results - last 24 hr 05/21/18 05/22/18 05/22/18 Range/Units 21:32 06:12 11:21 WBC 13.62 H (4.0-11.0) K/uL RBC 4.07 L (4.30-5.90) M/uL Hgb 10.4 L (12.0-16.0) g/dL Hct 32.6 L (36.0-46.0) % MCV 80.1 (80.0-98.0) fL MCH 25.6 L (27.0-32.0) pg MCHC 31.9 (31.0-37.0) g/dL RDW Std Deviation 52.0 (28.0-62.0) fl RDW Coeff of Franki 18 H (11.0-15.0) % Plt Count 284 (150-400) K/uL MPV 9.80 (7.40-12.00) fL Add Manual Diff YES Neutrophils % (Manual) 82 H (48.0-80.0) % Band Neutrophils % 6 % Lymphocytes % (Manual) 6 L (16.0-40.0) % Monocytes % (Manual) 6 (0.0-15.0) % Nucleated RBC % 0.0 /100WBC Absolute Seg Neuts 11.2 H (1.4-5.7) Band Neutrophils # 0.8 Lymphocytes # (Manual) 0.8 (0.6-2.4) Monocytes # (Manual) 0.8 (0.0-0.8) Nucleated RBCs # 0 K/uL Sodium (136-145) mmol/L Potassium (3.5-5.1) mmol/L Chloride (98-107) mmol/L Carbon Dioxide (21.0-32.0) mmol/L BUN (7.0-18.0) mg/dL Creatinine (0.6-1.0) mg/dL Est Cr Clr Drug Dosing mL/min Estimated GFR (MDRD) ml/min Glucose (74-106) mg/dL POC Glucose 208 H 165 H (60-110) mg/dL Calcium (8.5-10.1) mg/dL Magnesium (1.8-2.4) mg/dL Iron (50-175) ug/dL TIBC (250-450) ug/dL % Saturation (20-55) % Total Bilirubin (0.2-1.0) mg/dL AST (15-37) IU/L ALT (14-63) IU/L Alkaline Phosphatase (46-116) U/L Total Protein (6.4-8.2) g/dL Albumin (3.4-5.0) g/dL Globulin (2.0-3.5) g/dL Albumin/Globulin Ratio (1.3-2.8) TSH 3rd Generation (0.36-3.74) uIU/mL 05/22/18 05/22/18 05/22/18 Range/Units 11:21 11:21 11:21 WBC (4.0-11.0) K/uL RBC (4.30-5.90) M/uL Hgb (12.0-16.0) g/dL Hct (36.0-46.0) % MCV (80.0-98.0) fL MCH (27.0-32.0) pg MCHC (31.0-37.0) g/dL RDW Std Deviation (28.0-62.0) fl RDW Coeff of Franki (11.0-15.0) % Plt Count (150-400) K/uL MPV (7.40-12.00) fL Add Manual Diff Neutrophils % (Manual) (48.0-80.0) % Band Neutrophils % % Lymphocytes % (Manual) (16.0-40.0) % Monocytes % (Manual) (0.0-15.0) % Nucleated RBC % /100WBC Absolute Seg Neuts (1.4-5.7) Band Neutrophils # Lymphocytes # (Manual) (0.6-2.4) Monocytes # (Manual) (0.0-0.8) Nucleated RBCs # K/uL Sodium 138 (136-145) mmol/L Potassium 4.1 (3.5-5.1) mmol/L Chloride 102 (98-107) mmol/L Carbon Dioxide 25.1 (21.0-32.0) mmol/L BUN 47 H (7.0-18.0) mg/dL Creatinine 1.9 H (0.6-1.0) mg/dL Est Cr Clr Drug Dosing 23.73 mL/min Estimated GFR (MDRD) 25.6 ml/min Glucose 252 H (74-106) mg/dL POC Glucose (60-110) mg/dL Calcium 8.7 (8.5-10.1) mg/dL Magnesium 1.3 L Cancelled (1.8-2.4) mg/dL Iron 19 L (50-175) ug/dL TIBC 223 L (250-450) ug/dL % Saturation 8.52 L (20-55) % Total Bilirubin 0.3 (0.2-1.0) mg/dL AST 18 (15-37) IU/L ALT 21 (14-63) IU/L Alkaline Phosphatase 56 (46-116) U/L Total Protein 5.1 L (6.4-8.2) g/dL Albumin 2.2 L (3.4-5.0) g/dL Globulin 2.9 (2.0-3.5) g/dL Albumin/Globulin Ratio 0.8 L (1.3-2.8) TSH 3rd Generation 2.90 (0.36-3.74) uIU/mL 05/22/18 05/22/18 Range/Units 11:25 16:34 WBC (4.0-11.0) K/uL RBC (4.30-5.90) M/uL Hgb (12.0-16.0) g/dL Hct (36.0-46.0) % MCV (80.0-98.0) fL MCH (27.0-32.0) pg MCHC (31.0-37.0) g/dL RDW Std Deviation (28.0-62.0) fl RDW Coeff of Franki (11.0-15.0) % Plt Count (150-400) K/uL MPV (7.40-12.00) fL Add Manual Diff Neutrophils % (Manual) (48.0-80.0) % Band Neutrophils % % Lymphocytes % (Manual) (16.0-40.0) % Monocytes % (Manual) (0.0-15.0) % Nucleated RBC % /100WBC Absolute Seg Neuts (1.4-5.7) Band Neutrophils # Lymphocytes # (Manual) (0.6-2.4) Monocytes # (Manual) (0.0-0.8) Nucleated RBCs # K/uL Sodium (136-145) mmol/L Potassium (3.5-5.1) mmol/L Chloride (98-107) mmol/L Carbon Dioxide (21.0-32.0) mmol/L BUN (7.0-18.0) mg/dL Creatinine (0.6-1.0) mg/dL Est Cr Clr Drug Dosing mL/min Estimated GFR (MDRD) ml/min Glucose (74-106) mg/dL POC Glucose 252 H 208 H (60-110) mg/dL Calcium (8.5-10.1) mg/dL Magnesium (1.8-2.4) mg/dL Iron (50-175) ug/dL TIBC (250-450) ug/dL % Saturation (20-55) % Total Bilirubin (0.2-1.0) mg/dL AST (15-37) IU/L ALT (14-63) IU/L Alkaline Phosphatase (46-116) U/L Total Protein (6.4-8.2) g/dL Albumin (3.4-5.0) g/dL Globulin (2.0-3.5) g/dL Albumin/Globulin Ratio (1.3-2.8) TSH 3rd Generation (0.36-3.74) uIU/mL Med Orders - Current: Current Medications Acetaminophen (Tylenol) 650 mg PO Q4H PRN PRN Reason: Pain Last Admin: 05/20/18 12:26 Dose: 650 mg Albuterol (Proventil Neb Soln) 2.5 mg NEB Q4HRRT [facility] Last Admin: 05/22/18 14:10 Dose: 2.5 mg Aspirin (Aspirin) 81 mg PO DAILY [facility] Last Admin: 05/22/18 08:39 Dose: 81 mg Calcium Carbonate (Caltrate 600+D 1500 Mg-400 Units) 1 tab PO BID [facility] Last Admin: 05/22/18 08:36 Dose: 1 tab Cephalexin (Keflex) 500 mg PO Q12H [facility] Last Admin: 05/22/18 05:20 Dose: 500 mg Cyanocobalamin (Vitamin B12) 1,000 mcg SUBCUT DAILY [facility] Last Admin: 05/22/18 08:40 Dose: 1,000 mcg Diltiazem HCl (Cardizem Cd) 120 mg PO DAILY [facility] Last Admin: 05/22/18 14:35 Dose: 120 mg Furosemide (Lasix) 20 mg PO DAILY [facility] Gabapentin (Neurontin) 400 mg PO TID [facility] Last Admin: 05/22/18 14:34 Dose: 400 mg Heparin Sodium (Porcine) (Heparin Sodium) 5,000 units SUBCUT Q12H [facility] Last Admin: 05/22/18 05:20 Dose: 5,000 units Sodium Chloride (Normal Saline) 500 mls @ 999 mls/hr IV STAT [facility] Last Admin: 05/20/18 14:01 Dose: 999 mls/hr Lactated Ringer's (Ringers, Lactated) 1,000 mls @ 75 mls/hr IV ASDIRECTED [facility] Last Admin: 05/22/18 02:08 Dose: 75 mls/hr Sodium Chloride (Normal Saline) 500 mls @ 999 mls/hr IV .BOLUS [facility] Insulin Aspart (Novolog) 0 unit SUBCUT ACBED [facility]; Protocol Last Admin: 05/22/18 12:26 Dose: 6 units Budesonide/Formoterol Fumarate [Symbicort 160-4.5 Mcg Inh 0 each INH ASDIRECTED [facility] Prednisone (Prednisone) 3 mg PO WITHBREAKFAST [facility] Rosuvastatin Calcium (Crestor) 5 mg PO SuTuThSa@2100 [facility] Last Admin: 05/21/18 21:34 Dose: 5 mg Sodium Chloride (Saline Flush) 10 ml FLUSH ASDIRECTED PRN PRN Reason: Keep Vein Open Sodium Chloride (Saline Flush) 2.5 ml FLUSH ASDIRECTED PRN PRN Reason: Keep Vein Open Tiotropium [place] (Spiriva Handihaler) 18 mcg INH DAILY [facility] Last Admin: 05/22/18 09:09 Dose: 18 mcg Discontinued Medications Albuterol/Ipratropium (Duoneb 3.0-0.5 Mg/3 Ml) 3 ml NEB Q4HRRT PRN PRN Reason: Wheezing Amlodipine Besylate (Norvasc) 10 mg PO DAILY [facility] Last Admin: 05/21/18 10:55 Dose: Not Given Apixaban (Eliquis) 2.5 mg PO BID ONE Stop: 05/22/18 15:54 Diltiazem HCl (Cardizem) 30 mg PO Q6HR [facility] Enalapril Maleate (Vasotec) 10 mg PO DAILY [facility] Last Admin: 05/21/18 10:56 Dose: Not Given Gabapentin (Neurontin) 300 mg PO BID [facility] Last Admin: 05/21/18 09:16 Dose: 300 mg Hydrochlorothiazide (Hydrochlorothiazide) 25 mg PO DAILY [facility] Last Admin: 05/21/18 10:55 Dose: Not Given Ceftriaxone Sodium/Dextrose 1 (gm/ Premix) 50 mls @ 100 mls/hr IV ONETIME ONE Stop: 05/20/18 03:52 Last Admin: 05/20/18 03:36 Dose: 100 mls/hr Sodium Chloride (Normal Saline) 1,000 mls @ 75 mls/hr IV ASDIRECTED [facility] Last Admin: 05/20/18 03:36 Dose: 75 mls/hr Magnesium Sulfate 2 gm/ Premix 50 mls @ 50 mls/hr IV ONETIME ONE Stop: 05/22/18 14:53 Last Admin: 05/22/18 14:34 Dose: 50 mls/hr Prednisone (Prednisone) 2 mg PO WITHBREAKFAST [facility] Last Admin: 05/22/18 08:36 Dose: 2 mg Prednisone (Prednisone) 5 mg PO WITHBREAKFAST SHIV Prednisone (Prednisone) 5 mg PO NOW ONE Stop: 05/22/18 16:14 Tiotropium [place] (Spiriva Handihaler) 18 mcg INH ONETIME ONE Stop: 05/21/18 11:06 Last Admin: 05/21/18 16:15 Dose: Not Given <Andrew Stout - Last Filed: 05/22/18 18:07> Discharge Summary - Patient Summary/Data Consults: Consultations 05/20/18 05:13 Consult to Physical Therapy [PT Evaluation and Treatment] [CONS] Routine 05/21/18 11:10 Consult to Home Health [CONS] Routine 05/22/18 11:38 Consult to Physician [CONS] Routine Hospital Course: During her hospital stay her Blood pressure medication was on hold and also her insulin Detemir was held as she required very low insulin coverage during the day: ~10 units.Patient to f/up with PCP.Patient was not on oxygen at home previously , she was assessed in the hospital for oxygen and was discharged home with oxygen .She received fluids and her creatinine improved to 1.9 from 2.7. - Discharge Summary/Plan Comment DC Time >30 min.: Yes - Patient Data Vitals - Most Recent: Last Vital Signs Temp 98.1 F 05/22/18 15:00 Pulse 85 05/22/18 15:00 Resp 20 05/22/18 15:00 BP 118/57 L 05/22/18 15:00 Pulse Ox 93 L 05/22/18 15:00 I&O - Last 24 hours: Intake & Output 05/22/18 05/22/18 05/22/18 06:59 14:59 22:59 Intake Total 1004 686 Output Total 1050 600 Balance -46 86 Lab Results - Last 24 hrs: Laboratory Results - last 24 hr 05/21/18 05/22/18 05/22/18 Range/Units 21:32 06:12 11:21 WBC 13.62 H (4.0-11.0) K/uL RBC 4.07 L (4.30-5.90) M/uL Hgb 10.4 L (12.0-16.0) g/dL Hct 32.6 L (36.0-46.0) % MCV 80.1 (80.0-98.0) fL MCH 25.6 L (27.0-32.0) pg MCHC 31.9 (31.0-37.0) g/dL RDW Std Deviation 52.0 (28.0-62.0) fl RDW Coeff of Franki 18 H (11.0-15.0) % Plt Count 284 (150-400) K/uL MPV 9.80 (7.40-12.00) fL Add Manual Diff YES Neutrophils % (Manual) 82 H (48.0-80.0) % Band Neutrophils % 6 % Lymphocytes % (Manual) 6 L (16.0-40.0) % Monocytes % (Manual) 6 (0.0-15.0) % Nucleated RBC % 0.0 /100WBC Absolute Seg Neuts 11.2 H (1.4-5.7) Band Neutrophils # 0.8 Lymphocytes # (Manual) 0.8 (0.6-2.4) Monocytes # (Manual) 0.8 (0.0-0.8) Nucleated RBCs # 0 K/uL Sodium (136-145) mmol/L Potassium (3.5-5.1) mmol/L Chloride (98-107) mmol/L Carbon Dioxide (21.0-32.0) mmol/L BUN (7.0-18.0) mg/dL Creatinine (0.6-1.0) mg/dL Est Cr Clr Drug Dosing mL/min Estimated GFR (MDRD) ml/min Glucose (74-106) mg/dL POC Glucose 208 H 165 H (60-110) mg/dL Calcium (8.5-10.1) mg/dL Magnesium (1.8-2.4) mg/dL Iron (50-175) ug/dL TIBC (250-450) ug/dL % Saturation (20-55) % Total Bilirubin (0.2-1.0) mg/dL AST (15-37) IU/L ALT (14-63) IU/L Alkaline Phosphatase (46-116) U/L Total Protein (6.4-8.2) g/dL Albumin (3.4-5.0) g/dL Globulin (2.0-3.5) g/dL Albumin/Globulin Ratio (1.3-2.8) TSH 3rd Generation (0.36-3.74) uIU/mL 05/22/18 05/22/18 05/22/18 Range/Units 11:21 11:21 11:21 WBC (4.0-11.0) K/uL RBC (4.30-5.90) M/uL Hgb (12.0-16.0) g/dL Hct (36.0-46.0) % MCV (80.0-98.0) fL MCH (27.0-32.0) pg MCHC (31.0-37.0) g/dL RDW Std Deviation (28.0-62.0) fl RDW Coeff of Franki (11.0-15.0) % Plt Count (150-400) K/uL MPV (7.40-12.00) fL Add Manual Diff Neutrophils % (Manual) (48.0-80.0) % Band Neutrophils % % Lymphocytes % (Manual) (16.0-40.0) % Monocytes % (Manual) (0.0-15.0) % Nucleated RBC % /100WBC Absolute Seg Neuts (1.4-5.7) Band Neutrophils # Lymphocytes # (Manual) (0.6-2.4) Monocytes # (Manual) (0.0-0.8) Nucleated RBCs # K/uL Sodium 138 (136-145) mmol/L Potassium 4.1 (3.5-5.1) mmol/L Chloride 102 (98-107) mmol/L Carbon Dioxide 25.1 (21.0-32.0) mmol/L BUN 47 H (7.0-18.0) mg/dL Creatinine 1.9 H (0.6-1.0) mg/dL Est Cr Clr Drug Dosing 23.73 mL/min Estimated GFR (MDRD) 25.6 ml/min Glucose 252 H (74-106) mg/dL POC Glucose (60-110) mg/dL Calcium 8.7 (8.5-10.1) mg/dL Magnesium 1.3 L Cancelled (1.8-2.4) mg/dL Iron 19 L (50-175) ug/dL TIBC 223 L (250-450) ug/dL % Saturation 8.52 L (20-55) % Total Bilirubin 0.3 (0.2-1.0) mg/dL AST 18 (15-37) IU/L ALT 21 (14-63) IU/L Alkaline Phosphatase 56 (46-116) U/L Total Protein 5.1 L (6.4-8.2) g/dL Albumin 2.2 L (3.4-5.0) g/dL Globulin 2.9 (2.0-3.5) g/dL Albumin/Globulin Ratio 0.8 L (1.3-2.8) TSH 3rd Generation 2.90 (0.36-3.74) uIU/mL 05/22/18 05/22/18 Range/Units 11:25 16:34 WBC (4.0-11.0) K/uL RBC (4.30-5.90) M/uL Hgb (12.0-16.0) g/dL Hct (36.0-46.0) % MCV (80.0-98.0) fL MCH (27.0-32.0) pg MCHC (31.0-37.0) g/dL RDW Std Deviation (28.0-62.0) fl RDW Coeff of Franki (11.0-15.0) % Plt Count (150-400) K/uL MPV (7.40-12.00) fL Add Manual Diff Neutrophils % (Manual) (48.0-80.0) % Band Neutrophils % % Lymphocytes % (Manual) (16.0-40.0) % Monocytes % (Manual) (0.0-15.0) % Nucleated RBC % /100WBC Absolute Seg Neuts (1.4-5.7) Band Neutrophils # Lymphocytes # (Manual) (0.6-2.4) Monocytes # (Manual) (0.0-0.8) Nucleated RBCs # K/uL Sodium (136-145) mmol/L Potassium (3.5-5.1) mmol/L Chloride (98-107) mmol/L Carbon Dioxide (21.0-32.0) mmol/L BUN (7.0-18.0) mg/dL Creatinine (0.6-1.0) mg/dL Est Cr Clr Drug Dosing mL/min Estimated GFR (MDRD) ml/min Glucose (74-106) mg/dL POC Glucose 252 H 208 H (60-110) mg/dL Calcium (8.5-10.1) mg/dL Magnesium (1.8-2.4) mg/dL Iron (50-175) ug/dL TIBC (250-450) ug/dL % Saturation (20-55) % Total Bilirubin (0.2-1.0) mg/dL AST (15-37) IU/L ALT (14-63) IU/L Alkaline Phosphatase (46-116) U/L Total Protein (6.4-8.2) g/dL Albumin (3.4-5.0) g/dL Globulin (2.0-3.5) g/dL Albumin/Globulin Ratio (1.3-2.8) TSH 3rd Generation (0.36-3.74) uIU/mL Med Orders - Current: Current Medications Acetaminophen (Tylenol) 650 mg PO Q4H PRN PRN Reason: Pain Last Admin: 05/20/18 12:26 Dose: 650 mg Albuterol (Proventil Neb Soln) 2.5 mg NEB Q4HRRT [facility] Last Admin: 05/22/18 17:22 Dose: 2.5 mg Aspirin (Aspirin) 81 mg PO DAILY [facility] Last Admin: 05/22/18 08:39 Dose: 81 mg Calcium Carbonate (Caltrate 600+D 1500 Mg-400 Units) 1 tab PO BID [facility] Last Admin: 05/22/18 08:36 Dose: 1 tab Cephalexin (Keflex) 500 mg PO Q12H [facility] Last Admin: 05/22/18 17:09 Dose: 500 mg Cyanocobalamin (Vitamin B12) 1,000 mcg SUBCUT DAILY [facility] Last Admin: 05/22/18 08:40 Dose: 1,000 mcg Diltiazem HCl (Cardizem Cd) 120 mg PO DAILY [facility] Last Admin: 05/22/18 14:35 Dose: 120 mg Furosemide (Lasix) 20 mg PO DAILY [facility] Gabapentin (Neurontin) 400 mg PO TID [facility] Last Admin: 05/22/18 14:34 Dose: 400 mg Heparin Sodium (Porcine) (Heparin Sodium) 5,000 units SUBCUT Q12H [facility] Last Admin: 05/22/18 17:09 Dose: 5,000 units Sodium Chloride (Normal Saline) 500 mls @ 999 mls/hr IV STAT [facility] Last Admin: 05/20/18 14:01 Dose: 999 mls/hr Lactated Ringer's (Ringers, Lactated) 1,000 mls @ 75 mls/hr IV ASDIRECTED [facility] Last Admin: 05/22/18 02:08 Dose: 75 mls/hr Sodium Chloride (Normal Saline) 500 mls @ 999 mls/hr IV .BOLUS [facility] Insulin Aspart (Novolog) 0 unit SUBCUT ACBED [facility]; Protocol Last Admin: 05/22/18 17:45 Dose: 4 units Budesonide/Formoterol Fumarate [Symbicort 160-4.5 Mcg Inh 0 each INH ASDIRECTED [facility] Prednisone (Prednisone) 3 mg PO WITHBREAKFAST [facility] Rosuvastatin Calcium (Crestor) 5 mg PO SuTuThSa@2100 [facility] Last Admin: 05/21/18 21:34 Dose: 5 mg Sodium Chloride (Saline Flush) 10 ml FLUSH ASDIRECTED PRN PRN Reason: Keep Vein Open Sodium Chloride (Saline Flush) 2.5 ml FLUSH ASDIRECTED PRN PRN Reason: Keep Vein Open Tiotropium [place] (Spiriva Handihaler) 18 mcg INH DAILY [facility] Last Admin: 05/22/18 09:09 Dose: 18 mcg Discontinued Medications Albuterol/Ipratropium (Duoneb 3.0-0.5 Mg/3 Ml) 3 ml NEB Q4HRRT PRN PRN Reason: Wheezing Amlodipine Besylate (Norvasc) 10 mg PO DAILY [facility] Last Admin: 05/21/18 10:55 Dose: Not Given Apixaban (Eliquis) 2.5 mg PO BID ONE Stop: 05/22/18 15:54 Last Admin: 05/22/18 17:09 Dose: 2.5 mg Diltiazem HCl (Cardizem) 30 mg PO Q6HR [facility] Enalapril Maleate (Vasotec) 10 mg PO DAILY [facility] Last Admin: 05/21/18 10:56 Dose: Not Given Gabapentin (Neurontin) 300 mg PO BID [facility] Last Admin: 05/21/18 09:16 Dose: 300 mg Hydrochlorothiazide (Hydrochlorothiazide) 25 mg PO DAILY [facility] Last Admin: 05/21/18 10:55 Dose: Not Given Ceftriaxone Sodium/Dextrose 1 (gm/ Premix) 50 mls @ 100 mls/hr IV ONETIME ONE Stop: 05/20/18 03:52 Last Admin: 05/20/18 03:36 Dose: 100 mls/hr Sodium Chloride (Normal Saline) 1,000 mls @ 75 mls/hr IV ASDIRECTED SHIV Last Admin: 05/20/18 03:36 Dose: 75 mls/hr Magnesium Sulfate 2 gm/ Premix 50 mls @ 50 mls/hr IV ONETIME ONE Stop: 05/22/18 14:53 Last Admin: 05/22/18 14:34 Dose: 50 mls/hr Prednisone (Prednisone) 2 mg PO WITHBREAKFAST SHIV Last Admin: 05/22/18 08:36 Dose: 2 mg Prednisone (Prednisone) 5 mg PO WITHBREAKFAST SHIV Prednisone (Prednisone) 5 mg PO NOW ONE Stop: 05/22/18 16:14 Last Admin: 05/22/18 17:09 Dose: 5 mg Tiotropium [place] (Spiriva Handihaler) 18 mcg INH ONETIME ONE Stop: 05/21/18 11:06 Last Admin: 05/21/18 16:15 Dose: Not Given
[2018-05-22] MEDS ORDERED: Temazepam 15 MG Cap PO PRN (20:04)
[2018-05-23] MEDS: Albuterol 0.083% 2.5 MG/3 ML Neb Soln NEB SCH ×3 (02:00→10:56)
[2018-05-23] MEDS: Heparin Sodium 5,000 Units/ML Vial SUBCUT SCH (05:27)
[2018-05-23] MEDS: Gabapentin 100 MG Cap PO SCH ×2 (05:31→13:45)
[2018-05-23] MEDS: Cephalexin 500 MG Cap PO SCH (05:31)
[2018-05-23] MEDS: Insulin Aspart 100 Units/ML 3 ML Pen SUBCUT SCH ×2 (07:22→12:38)
[2018-05-23] MEDS ORDERED: predniSONE 5 MG Tab PO SCH (08:00)
[2018-05-23] MEDS ORDERED: predniSONE 1 MG Tab PO SCH (08:00)
[2018-05-23] MEDS: Calcium Carbonate/Vitamin D3 1500 MG-400 Units Tab PO SCH (08:22)
[2018-05-23] MEDS: Diltiazem 120 MG Cap.CD PO SCH (08:23)
[2018-05-23] MEDS: Cyanocobalamin (Vitamin B12) 1,000 MCG/ML SDV SUBCUT SCH (08:24)
[2018-05-23] MEDS: Ferrous Sulfate 325 MG Tab PO SCH ×2 (08:24→12:41)
[2018-05-23] MEDS: Aspirin 81 MG Tab.Chew PO SCH (08:35)
[2018-05-23] MEDS ORDERED: Furosemide 20 MG Tab PO SCH (09:00)
--- NOTE | 2018-05-23 09:05 | PCM.SN ---
- Free Text/Narrative Note: Patient was seen by certification engineer in the afternoon,agree with Cardiazem CD 120 mg ,added eliquis 2.5 mg po BID to her regimen. Patient was discharged home with Home Health Care , Cleared by physical therapy for discharge but when family arrive she stated she is not able to go home cause she is very weak and would like to be placed in a Half-Way at [facility]. Patient was kept to see social media marketing analyst in the morning to see what arrangements can be made and if she qualify for skilled nursing placement.
[2018-05-23] MEDS: Tiotropium Inhaler 18 MCG Inhalation Powder Cap Kit of 5 INH SCH (09:07)
[2018-05-23] MEDS ORDERED: Metoprolol Succinate 25 MG Tab.ER PO SCH (10:30)
--- NOTE | 2018-05-23 10:46 | PCM.SN ---
- Free Text/Narrative Note: Patient stayed overnight secondary to ride issues getting home. No changes were made from the discharge summary dicated yesterday. She will go home with home health along with wheelchair, oxygen. She feels comfortable going home. She isn' t dizzy or lightheaded, she did well with PT.
--- NOTE | 2018-05-23 11:17 | CONS ---
DATE OF CONSULTATION: 05/23/2018 DATE OF : 1940 PRIMARY CARE PHYSICIAN: None PCP ADDENDUM: Recommended to start on the Eliquis for stroke reduction from AFib and put her back on the diuretics, and regarding the steroid management, I will defer to the primary team and the hospitalist to manage. The echocardiogram did not show any significant valvular abnormality. Her ejection fraction seemed to be preserved, and I will follow her. JANKI WOODS /[id number]
--- NOTE | 2018-05-23 12:11 | CONS ---
DATE OF CONSULTATION: 05/23/2018 DATE OF : 1940 PRIMARY CARE PHYSICIAN: None PCP REASON FOR CONSULTATION: Questionable atrial fibrillation and syncope. HISTORY OF PRESENT ILLNESS: This is a 78-year-old female who has a past medical history of hypertension; dyslipidemia; diabetes; chronic edema; and severe COPD, steroid dependent. She was admitted in the hospital because of fall and blackout. It happened on the . She was at home. She lives at home with her and she usually can do her house work and is functional seemingly. She stated that on 20 of May, she was standing and all of a sudden she fell and passed out. She stated that it could have been very brief time like 2 seconds when she passed out and she laid there for a while until her came back. She could not move at all because of her pain and weakness. She denied warning symptoms such as chest pain, palpitation, or shortness of breath. She fell last year in April. At that time, she stated that she tripped over. Not feeling dizzy or syncope type of passing out. Not blackout either. She has never been diagnosed with atrial fibrillation before, that is why she was here in the hospital. When she was in the hospital, her creatinine seemed to be slightly elevated. Her baseline over the past year is around 1.7 to possibly 2.2 to 2.4, and when she got in, her creatinine has bumped up to 2.7, which is the highest numbers over the past year and she got hydration with IV fluids at rate of 75. She also found to have orthostatic hypotension with a systolic blood pressure dropped from 105 to 75 with standing position and also she was on a low dose of Lasix for chronic edema as well. She seemed to be on the steroids since last year for chronic bronchitis as well as severe COPD. I am not sure that the steroids are planned to be tapered later on or she is going to be on steroids indefinitely. Apparently on the telemetry show irregular heartbeat with a heart rate of 120 to 130 and back down to normal. The fast heart rate came with activity when she was up and about and also the nurses checked her O2 saturation when she was walking, she dropped her O2 saturation into the 87 and she got some shortness of breath as well. Echocardiogram came back, it showed preserved ejection fraction. Normal LV systolic function and noted that diastolic was normal and RV also normal. There are no significant valvular problems. After she got hydration, her creatinine has improved from 2.4 to 1.9. TSH is also normal. PAST MEDICAL HISTORY: As mentioned above including diabetes; hypertension; hyperlipidemia; severe COPD, steroid dependent; chronic kidney disease with a creatinine ranging between 1.7 to 2.4. MEDICATIONS: As per record, includin. Steroid, prednisone 5 mg seemed to be started since December of this year. 2. Crestor 20 mg 4 times a week. 3. Lasix 20 mg twice a day. 4. Amlodipine 10 mg once a day. 5. Aspirin 81 mg once a day. 6. Enalapril and hydrochlorothiazide 10/25 one tablet once a day. 7. Gabapentin 300 mg twice a day. 8. Symbicort. 9. Ventolin. 10.Levemir. 11.NovoLog. SOCIAL HISTORY: Current smoker. No drug use. No alcohol use. REVIEW OF SYSTEMS: Except indicated in HPI, otherwise has been negative. ALLERGIES: No known drug allergies. FAMILY HISTORY: Noncontributory. PHYSICAL EXAMINATION: VITAL SIGNS: Initial O2 saturation is 86 on room air and currently is 92 on 2 L. Initial blood pressure is 131/110. Also has positive orthostatic hypotension with systolic blood pressure dropped from 105 to 75 with standing position and the current blood pressure yesterday was 118/57. The heart rate is ranging between 79 to 120. HEENT: Mild dry and mildly pale. NECK: No JVD. LUNGS: Decreased breath sound on the right side, but overall decreased breath sounds as well. Dry crackles bilaterally. ABDOMEN: Soft, nontender. Bowel sounds are present. No hepatosplenomegaly. EXTREMITIES: Legs, trace edema. LABORATORY INVESTIGATION: CBC showed WBC 13, hematocrit of 32, and platelets 284. She is on chronic steroid as well. Sodium 138 and potassium 4.1, chloride 102, bicarb 25, BUN 47 from initially 103 and creatinine is 1.9 from initially 2.7 after hydration, magnesium was 2.1 and now is 1.3, and liver function tests were unremarkable. TSH is 2.9. A1c is 7.9. Troponin was negative x3. Urinalysis shows few bacteria, wbc's 2 to 4. Chest x-ray shows mild pulmonary vascular congestion. I did not appreciate any infiltration. Carotid ultrasound was mild bilateral carotid stenosis, less than 50% and echocardiogram which showed Echocardiogram was 60-65% and LV systolic function seemed to be preserved, RV systolic function seemed to be preserved as well. There is only trace AR and trace TR. No other significant valvular abnormality. Showed mild aortic valve calcification. Diastolic function seemed to be normal. EKG does show right bundle-branch block pattern and sinus rhythm, DC interval 182, QRS duration 133 , QTc interval 451, sinus rhythm still. It could be wandering atrial pacemaker as well. The telemetry strip when she was tachycardic did show possible atrial fibrillation. However, it could also be multifocal atrial tachycardia as well, but my suspicion is most likely to be atrial fibrillation. ASSESSMENT AND PLAN: This is a 78-year-old female with a history of chronic kidney disease and has uncontrolled diabetes; hypertension; hyperlipidemia; current smoker; severe COPD , steroid dependent; and neuropathy presented to the hospital with fall, as well as syncope, and also found to have orthostatic hypotension plus acute kidney injury on top of chronic kidney disease, dehydration, and paroxysmal atrial fibrillation, asymptomatic. Her syncope could be most likely due to orthostatic hypotension, dehydration evidenced by NESS on top of CKD, elevated BUN and creatinine. It seems that her creatinine and BUN have improved after IV hydration. The chest x-ray shows mild vascular congestion. She has been on the diuretic for chronic edema for a long period of time, and she definitely has hypoxia with activity. She also noted to have severe COPD. I would recommend to put her back on the low-dose Lasix as well, given the history of chronic edema and diuretic- dependent CKD. Regarding atrial fibrillation, she has an elevated [id number] score at least 5 for age, gender, hypertension, diabetes. I talked to her that she would need a blood thinner to reduce the risk of a stroke from atrial fibrillation, and she has chronic anemia , mild anemia with hematocrit of 36. When she was in this admission, her hematocrit dropped from 36 to 32 after that hydration as well, and her RBC indices only showed normocytic normochromic, it could be related to chronic kidney disease. Also could be related to early stage of iron deficiency. She denied history of bleeding anywhere. She fell one time last year, and she stated that she was tripping over. No syncopal episode at that time. No blacking out. Recommended to start on the Eliquis for stroke reduction from AFib and put her back on the diuretics, and regarding the steroid management, I will defer to the primary team and the hospitalist to manage. The echocardiogram did not show any significant valvular abnormality. Her ejection fraction seemed to be preserved, and I will follow her. DATE / TIME MD JANKI MADRIGAL / PEGGY /[id number] MOLLY
--- NOTE | 2018-05-23 14:23 | ECHO ---
EXAM DATE: 05/20/18 PATIENT'S AGE: 78 The echocardiogram report can be seen in this patient's EMR (Electronic Medical Record) in the Reports section. The report has also been scanned into PACs. MOLLY
== END 2018-05-23 16:00 | disposition home health service (06) ==
LOC: MW.ED 00:44 → MW.MS 03:24 → OBSVTOIN 05-22 19:04 → INTOOBSV 05-22 19:04 → MW.MS 05-22 19:05
PROVIDERS: ADMIT Internal Medicine; ATTEND Internal Medicine
DX: R55 Syncope and collapse (principal); I45.10 Unspecified right bundle-branch block; I12.9 Hypertensive chronic kidney disease with stage 1 through stage 4 chronic kidney disease, or unspecified chronic kidney disease; E11.22 Type 2 diabetes mellitus with diabetic chronic kidney disease; N18.9 Chronic kidney disease, unspecified; E11.42 Type 2 diabetes mellitus with diabetic polyneuropathy; E78.5 Hyperlipidemia, unspecified; E83.42 Hypomagnesemia; E78.00 Pure hypercholesterolemia, unspecified; N39.0 Urinary tract infection, site not specified; J44.9 Chronic obstructive pulmonary disease, unspecified; D72.829 Elevated white blood cell count, unspecified; Z79.4 Long term (current) use of insulin; Z79.899 Other long term (current) drug therapy
CPT/HCPCS: 36415; 51702; 70450; 70450-26; 71045; 71045-26; 72125; 72125-26; 73521; 73521-26; 80048; 80053; 81001; 82607; 82962; 83036; 83550; 83605; 83735; 84443; 84484; 85007; 85025; 85027; 85610; 87086; 93005; 93306; 93880; 93880-26; 94640; 96361; 96365; 97110-GP; 97161-GP; 97530-GP; 99285-25; A9270-GY; J0696; J1644; J1815-GY; J3420; J3475; J7040; J7120

== ENCOUNTER 2020-12-14 17:47 | Emergency (ER) | payer MEDICARE, BC ==
--- NOTE | 2020-12-14 18:08 | EDM.PDOC ---
ED HPI GENERAL MEDICAL PROBLEM - General Source of Information: Reports: Patient, EMS History Limitations: Reports: No Limitations <Tyrell Elizondo - Last Filed: 12/14/20 18:51> <Harvey Trivedi - Last Filed: 12/14/20 19:53> - General Chief Complaint: Trauma Stated Complaint: EMS ARRIVAL Time Seen by Provider: 12/14/20 17:53 - History of Present Illness INITIAL COMMENTS - FREE TEXT/NARRATIVE: 80-year-old female was brought in by ambulance after a mechanical fall. At 3 PM today she was bending forward to fix the rug and her legs "gave out" as she was getting up. She landed on her knees. She denies hitting her head or neck pain. She complains of chronic pain to bilateral hips which is unchanged today. She laid on the floor as her was unable to lift her up, and she felt too weak to get up by herself. She normally uses a walker but she was not using a walker when she fell today. Patient denies fever, chills, headache, chest pain, shortness of breath, abdominal pain, focal numbness or weakness. ROS: A 10-point review of systems, other than pertinent positives and negatives as stated per HPI, is otherwise negative Past medical history: No additional pertinent history Past Surgical history: No additional pertinent history Social history: No additional pertinent history Family history: No additional pertinent history PHYSICAL EXAM General: AOx4, GCS = 15, smiling and joking in no distress HEENT: dry mucous membrane, NC/AT Neck: supple, no meningismus, no Kernig or Brudzinski Cardiac: S1S2 RRR Respiratory: CTAB, no crackles or rales, no wheezing Abdomen: Soft, nontender, no rebound or guarding, nondistended, no pulsatile mass. Back: nontender to C/T/L-spine Musculoskeletal: NVI distally, no tenderness to bilateral pelvis, hips, knees. No deformity Neuro: No focal deficits, CN 2 - 12 WNL. (Tyrell Elizondo) - Related Data Allergies Allergy/AdvReac Type Severity Reaction Status Date / Time No Known Allergies Allergy Verified 12/14/20 17:55 Home Meds: Home Meds Aspirin 1 tab PO DAILY 05/20/18 [History] Budesonide/Formoterol Fumarate [Symbicort 160-4.5 Mcg Inhaler] 1 puff INH ASDIRECTED 05/20/18 [History] Furosemide [Lasix] 1 tab PO DAILY 05/20/18 [History] Gabapentin [Neurontin] 1 cap PO BID 05/20/18 [History] Rosuvastatin Calcium 20 mg PO SUTUTHSA 05/20/18 [History] prednisoLONE [Millipred DP] 1 tab PO DAILY 05/20/18 [History] Albuterol [Ventolin HFA] 2 puff INH Q4H PRN 30 Days #1 puff 05/21/18 [Rx] B12/Levomefolate Calcium/B-6 [Folbic Rf Tablet] 1 each PO DAILY 80 Days #90 tablet 05/21/18 [Rx] Famotidine [Pepcid AC] 10 mg PO DAILY #90 tablet 05/21/18 [Rx] Ferrous Sulfate 325 mg PO TID #90 tablet 05/21/18 [Rx] Insulin Aspart [NovoLOG] See Protocol SQ WITHMEALSANDBED 30 Days #1 pen 05/21/18 [Rx] cephALEXin [Keflex] 500 mg PO Q12H 5 Days #10 cap 05/21/18 [Rx] Apixaban [Eliquis] 2.5 mg PO BID 30 Days #60 tablet 05/22/18 [Rx] Diltiazem [Cardizem CD] 120 mg PO DAILY 30 Days #30 cap.cd 05/22/18 [Rx] Furosemide [Lasix] 20 mg PO DAILY 30 Days #30 tablet 05/22/18 [Rx] Gentamicin [Gentak 0.3% Ophth Oint] 1 applic .XX QPM #1 tube 12/14/20 [Rx] Past Medical History HEENT History: Reports: Hard of Hearing Cardiovascular History: Reports: High Cholesterol, Hypertension Respiratory History: Reports: COPD Gastrointestinal History: Reports: Other (See Below) Other Gastrointestinal History: umbilical hernia Genitourinary History: Reports: Other (See Below) Other Genitourinary History: CKD Musculoskeletal History: Reports: None Endocrine/Metabolic History: Reports: Diabetes, Type II Immunologic History: Reports: None - Infectious Disease History Infectious Disease History: Reports: None - Past Surgical History HEENT Surgical History: Reports: None Cardiovascular Surgical History: Reports: None Respiratory Surgical History: Reports: None GI Surgical History: Reports: Colon Endocrine Surgical History: Reports: None Musculoskeletal Surgical History: Reports: None <Tyrell Elizondo - Last Filed: 12/14/20 18:51> Social & Family History - Family History Family Medical History: No Pertinent Family History - Caffeine Use Caffeine Use: Reports: Coffee <MikhailTyrell - Last Filed: 12/14/20 18:51> Review of Systems - Review of Systems Review Of Systems: See Below (see dictation) <MikhailTyrell - Last Filed: 12/14/20 18:51> ED EXAM, GENERAL - Physical Exam Exam: See Below (see dictation) <MikhailTyrell - Last Filed: 12/14/20 18:51> <Tyrell Elizondo - Last Filed: 12/14/20 18:51> #1 Interpretation EKG Interpretation Comments: [] bpm, NSR, normal QRS interval, no STEMI. EKG and rhythm strip interpreted by me at [] (Tyrell Elizondo) Course <Tyrell Elizondo - Last Filed: 12/14/20 18:51> - Vital Signs Last Recorded V/S: Last Vital Signs Temp 36.3 C 12/14/20 17:55 Pulse 79 12/14/20 17:55 Resp 18 12/14/20 17:55 BP 130/70 12/14/20 17:55 Pulse Ox 94 L 12/14/20 17:55 - Orders/Labs/Meds Orders: Active Orders 24 hr Category Date Time Status Cardiac Monitoring [RC] . DIRECTED Care 12/14/20 17:53 Active EKG Documentation Completion [RC] STAT Care 12/14/20 17:54 Active Pulse Oximetry [RC] ASDIRECTED Care 12/14/20 17:53 Active Labs: Laboratory Tests 12/14/20 12/14/20 12/14/20 Range/Units 18:04 18:04 19:20 WBC 18.85 H (4.0-11.0) K/uL RBC 4.20 L (4.30-5.90) M/uL Hgb 12.6 (12.0-16.0) g/dL Hct 40.2 (36.0-46.0) % MCV 95.7 (80.0-98.0) fL MCH 30.0 (27.0-32.0) pg MCHC 31.3 (31.0-37.0) g/dL RDW Std Deviation 53.8 (28.0-62.0) fl RDW Coeff of Franki 15 (11.0-15.0) % Plt Count 302 (150-400) K/uL MPV 10.70 (7.40-12.00) fL Neut % (Auto) 86.7 H (48.0-80.0) % Lymph % (Auto) 4.7 L (16.0-40.0) % [place] % (Auto) 7.7 (0.0-15.0) % Eos % (Auto) 0.6 (0.0-7.0) % Baso % (Auto) 0.3 (0.0-1.5) % Neut # (Auto) 16.3 H (1.4-5.7) K/uL Lymph # (Auto) 0.9 (0.6-2.4) K/uL [place] # (Auto) 1.5 H (0.0-0.8) K/uL Eos # (Auto) 0.1 (0.0-0.7) K/uL Baso # (Auto) 0.1 (0.0-0.1) K/uL Nucleated RBC % 0.0 /100WBC Nucleated RBCs # 0 K/uL Sodium 139 (136-145) mmol/L Potassium 4.5 (3.5-5.1) mmol/L Chloride 104 (98-107) mmol/L Carbon Dioxide 25.9 (21.0-32.0) mmol/L BUN 50 H (7.0-18.0) mg/dL Creatinine 1.9 H (0.6-1.0) mg/dL Est Cr Clr Drug Dosing 16.96 mL/min Estimated GFR (MDRD) 25.4 ml/min Glucose 188 H (74-106) mg/dL Calcium 10.0 (8.5-10.1) mg/dL Total Bilirubin 0.2 (0.2-1.0) mg/dL AST 31 (15-37) IU/L ALT 46 (14-63) IU/L Alkaline Phosphatase 112 (46-116) U/L Troponin I < 0.050 (0.000-0.056) ng/mL Total Protein 7.2 (6.4-8.2) g/dL Albumin 3.2 L (3.4-5.0) g/dL Globulin 4.0 (2.6-4.0) g/dL Albumin/Globulin Ratio 0.8 L (0.9-1.6) Urine Color YELLOW Urine Appearance CLEAR Urine pH 5.5 (5.0-8.0) Ur Specific [place] 1.025 (1.001-1.035) Urine Protein TRACE H (NEGATIVE) mg/dL Urine Glucose (UA) NEGATIVE (NEGATIVE) mg/dL Urine Ketones NEGATIVE (NEGATIVE) mg/dL Urine Occult Blood NEGATIVE (NEGATIVE) Urine Nitrite NEGATIVE (NEGATIVE) Urine Bilirubin NEGATIVE (NEGATIVE) Urine Urobilinogen 0.2 (<2.0) EU/dL Ur Leukocyte Esterase NEGATIVE (NEGATIVE) Urine RBC NONE SEEN (0-2/HPF) Urine WBC NONE SEEN (0-5/HPF) Ur Epithelial Cells NOT SEEN (NONE-FEW) Amorphous Sediment FEW (NEGATIVE) Urine Bacteria RARE (NEGATIVE) Urine Mucus RARE (NONE-MOD) - Re-Assessments/Exams Free Text/Narrative Re-Assessment/Exam: 12/14/20 18:51 case signed out to Dr. Trivedi for disposition (Tyrell Elizondo) Departure - Departure Condition: Good <Tyrell Elizondo - Last Filed: 12/14/20 18:51> - Departure Time of Disposition: 20:10 Condition: Good <Harvey Trivedi - Last Filed: 12/14/20 19:53> - Departure Disposition: Home, Self-Care 01 Clinical Impression: Fall, Contusion, hip, Conjunctivitis - Discharge Information Prescriptions: Gentamicin [Gentak 0.3% Ophth Oint] 1 applic .XX QPM #1 tube Instructions: How to Use Eye Drops and Eye Ointments Referrals: Dave Etienne MD [Primary Care Provider] - Forms: ED Department Discharge Additional Instructions: [facility] - Primary Care [address] [place] [id number] [place] [address] The following information is given to patients seen in the emergency department who are being discharged to home. This information is to outline your options for follow-up care. We provide all patients seen in our emergency department with a follow-up referral. The need for follow-up, as well as the timing and circumstances, are variable depending upon the specifics of your emergency department visit. If you don't have a primary care physician on staff, we will provide you with a referral. We always advise you to contact your personal physician following an emergency department visit to inform them of the circumstance of the visit and for follow-up with them and/or the need for any referrals to a consulting specialist. The emergency department will also refer you to a specialist when appropriate. This referral assures that you have the opportunity for follow-up care with a specialist. All of these measure are taken in an effort to provide you with optimal care, which includes your follow-up. Under all circumstances we always encourage you to contact your private physician who remains a resource for coordinating your care. When calling for follow-up care, please make the office aware that this follow-up is from your recent emergency room visit. If for any reason you are refused follow-up, please contact the [facility] Emergency Department at and asked to speak to the emergency department charge nurse. Sepsis Event Note (ED) - Focused Exam Vital Signs: Vital Signs Temp Pulse Resp BP Pulse Ox 12/14/20 17:55 36.3 C 79 18 130/70 94 L
[2020-12-14 18:37] LABS: BLOOD UREA NITROGEN,BUN 50 mg/dL (7.0-18.0); CARBON DIOXIDE,CO2 25.9 mmol/L (21.0-32.0); CHLORIDE,CL 104 mmol/L (98-107); GLUCOSE RANDOM 188 mg/dL (74-106); POTASSIUM,K 4.5 mmol/L (3.5-5.1); SODIUM,NA 139 mmol/L (136-145)
--- NOTE | 2020-12-14 18:59 | CR ---
HISTORY: Weakness COMPARISON: 11/21/2018 FINDINGS: An erect AP view of the chest was obtained at 1753 hours. The previously seen minimal perihilar infiltrate has resolved. The lungs are now clear. No focal or diffuse infiltrates are present. The heart remains normal in size. Again seen is mild tortuosity of the descending thoracic aorta. The mediastinum is otherwise normal in appearance. The osseous structures are normal in appearance for the patient`s age. IMPRESSION: Normal portable chest single view. Dictated by Lele Sood MD @ Dec 14 2020 6:55PM Signed by Dr. Lele Sodo @ Dec 14 2020 6:57PM
--- NOTE | 2020-12-14 19:00 | CR ---
HISTORY: Weakness COMPARISON: None available. FINDINGS: A single AP view of the pelvis shows no sign of fracture or dislocation. The hips are normal in appearance with no significant degenerative changes. There is moderate disc degenerative disease at L2-3 and L3-4. There is mild disc degenerative disease at L4-5 and L5-S1. The soft tissues of the pelvis are unremarkable. IMPRESSION: Normal examination of the pelvis. Degenerative changes in the inferior lumbar spine as described above. Dictated by Lele Sood MD @ Dec 14 2020 6:55PM Signed by Dr. Lele Sood @ Dec 14 2020 6:59PM
== END 2020-12-14 20:00 | disposition home or self-care (01) ==
LOC: MW.ED 17:47
DX: S70.02XA Contusion of left hip, initial encounter (principal); S70.01XA Contusion of right hip, initial encounter; H10.9 Unspecified conjunctivitis; E78.00 Pure hypercholesterolemia, unspecified; J44.9 Chronic obstructive pulmonary disease, unspecified; I12.9 Hypertensive chronic kidney disease with stage 1 through stage 4 chronic kidney disease, or unspecified chronic kidney disease; N18.9 Chronic kidney disease, unspecified; E11.22 Type 2 diabetes mellitus with diabetic chronic kidney disease; Z79.82 Long term (current) use of aspirin; Z79.4 Long term (current) use of insulin; Z79.01 Long term (current) use of anticoagulants; Z79.899 Other long term (current) drug therapy; W01.0XXA Fall on same level from slipping, tripping and stumbling without subsequent striking against object, initial encounter
CPT/HCPCS: 36415; 71045; 71045-26; 72170; 72170-26; 80053; 81001; 84484; 85025; 93005; 99284-25

== ENCOUNTER 2021-03-11 08:50 | Emergency (ER) | payer MEDICARE, BC ==
--- NOTE | 2021-03-11 08:59 | EDM.PDOC ---
ED HPI GENERAL MEDICAL PROBLEM - General Chief Complaint: Trauma Stated Complaint: EMS Time Seen by Provider: 03/11/21 08:59 Source of Information: Reports: Patient History Limitations: Reports: No Limitations - History of Present Illness INITIAL COMMENTS - FREE TEXT/NARRATIVE: Patient is a 80-year-old female who presents today after a fall. Patient states that she was try to transition to her chair and lost her footing and fell onto her back. Patient currently denies any pain. Patient denies hitting her head or have any LOC. Patient states she chronically has some arthritis and does have some pain in her right hip that is been there before the fall. Patient also mention left-sided facial swelling she was going to the dentist today to have fully tooth extracted before she fell. Patient denies any fever chills or difficulty swallowing. back Pain Score (Numeric/FACES): 4 - Related Data Allergies Allergy/AdvReac Type Severity Reaction Status Date / Time No Known Allergies Allergy Verified 12/14/20 17:55 Home Meds: Home Meds Aspirin 1 tab PO DAILY 05/20/18 [History] Budesonide/Formoterol Fumarate [Symbicort 160-4.5 Mcg Inhaler] 1 puff INH ASDIRECTED 05/20/18 [History] Furosemide [Lasix] 1 tab PO DAILY 05/20/18 [History] Gabapentin [Neurontin] 1 cap PO BID 05/20/18 [History] Rosuvastatin Calcium 20 mg PO SUTUTHSA 05/20/18 [History] prednisoLONE [Millipred DP] 1 tab PO DAILY 05/20/18 [History] Albuterol [Ventolin HFA] 2 puff INH Q4H PRN 30 Days #1 puff 05/21/18 [Rx] B12/Levomefolate Calcium/B-6 [Folbic Rf Tablet] 1 each PO DAILY 80 Days #90 tablet 05/21/18 [Rx] Famotidine [Pepcid AC] 10 mg PO DAILY #90 tablet 05/21/18 [Rx] Ferrous Sulfate 325 mg PO TID #90 tablet 05/21/18 [Rx] Insulin Aspart [NovoLOG] See Protocol SQ WITHMEALSANDBED 30 Days #1 pen 05/21/18 [Rx] cephALEXin [Keflex] 500 mg PO Q12H 5 Days #10 cap 05/21/18 [Rx] Apixaban [Eliquis] 2.5 mg PO BID 30 Days #60 tablet 05/22/18 [Rx] Diltiazem [Cardizem CD] 120 mg PO DAILY 30 Days #30 cap.cd 05/22/18 [Rx] Furosemide [Lasix] 20 mg PO DAILY 30 Days #30 tablet 05/22/18 [Rx] Gentamicin [Gentak 0.3% Ophth Oint] 1 applic .XX QPM #1 tube 12/14/20 [Rx] Amoxicillin/Clavulanate K [Augmentin 875-125 MG] 1 tab PO BID 7 Days #14 tablet 03/11/21 [Rx] Chlorhexidine Gluconate [Chlorhexidine Gluconate 0.12% Rinse] 118 ml MM BID #1 bottle 03/11/21 [Rx] Past Medical History HEENT History: Reports: Hard of Hearing Cardiovascular History: Reports: High Cholesterol, Hypertension Respiratory History: Reports: COPD Gastrointestinal History: Reports: Other (See Below) Other Gastrointestinal History: umbilical hernia Genitourinary History: Reports: Other (See Below) Other Genitourinary History: CKD Musculoskeletal History: Reports: None Endocrine/Metabolic History: Reports: Diabetes, Type II Immunologic History: Reports: None - Infectious Disease History Infectious Disease History: Reports: None - Past Surgical History HEENT Surgical History: Reports: None Cardiovascular Surgical History: Reports: None Respiratory Surgical History: Reports: None GI Surgical History: Reports: Colon Endocrine Surgical History: Reports: None Musculoskeletal Surgical History: Reports: None Social & Family History - Family History Family Medical History: No Pertinent Family History - Caffeine Use Caffeine Use: Reports: None Review of Systems - Review of Systems Review Of Systems: See Below Constitutional: Reports: No Symptoms Eyes: Reports: No Symptoms Ears: Reports: No Symptoms Nose: Reports: No Symptoms Mouth/Throat: Reports: No Symptoms Respiratory: Reports: No Symptoms Cardiovascular: Reports: No Symptoms GI/Abdominal: Reports: No Symptoms Genitourinary: Reports: No Symptoms Musculoskeletal: Reports: No Symptoms Skin: Reports: No Symptoms Neurological: Reports: No Symptoms Psychiatric: Reports: No Symptoms ED EXAM, GENERAL - Physical Exam Exam: See Below Exam Limited By: No Limitations General Appearance: Alert, WD/WN Eye Exam: Bilateral Eye: EOMI, PERRL Head: Atraumatic, Normocephalic Respiratory/Chest: No Respiratory Distress, Lungs Clear, Normal Breath Sounds Cardiovascular: Normal Peripheral Pulses, Regular Rate, Rhythm GI/Abdominal: Normal Bowel Sounds, Soft, Non-Tender Back Exam: No: Vertebral Tenderness Extremities: Normal Inspection, Normal Range of Motion Neurological: Alert, Oriented, CN II-XII Intact, Normal Cognition Course - Vital Signs Last Recorded V/S: Last Vital Signs Temp 97.7 F 03/11/21 09:23 Pulse 83 03/11/21 09:23 Resp 18 03/11/21 09:23 BP 104/40 L 03/11/21 09:23 Pulse Ox 92 L 03/11/21 09:23 - Orders/Labs/Meds Labs: Laboratory Tests 03/11/21 03/11/21 03/11/21 Range/Units 08:50 08:50 08:50 WBC 20.99 H (4.0-11.0) K/uL RBC 3.93 L (4.30-5.90) M/uL Hgb 12.1 (12.0-16.0) g/dL Hct 38.0 (36.0-46.0) % MCV 96.7 (80.0-98.0) fL MCH 30.8 (27.0-32.0) pg MCHC 31.8 (31.0-37.0) g/dL RDW Std Deviation 53.5 (28.0-62.0) fl RDW Coeff of Franki 16 H (11.0-15.0) % Plt Count 254 (150-400) K/uL MPV 10.50 (7.40-12.00) fL Add Manual Diff YES Neutrophils % (Manual) 70 (48.0-80.0) % Band Neutrophils % 13 % Lymphocytes % (Manual) 7 L (16.0-40.0) % Monocytes % (Manual) 8 (0.0-15.0) % Eosinophils % (Manual) 1 (0.0-7.0) % Basophils % (Manual) 1 (0.0-1.5) % Absolute Seg Neuts 14.7 H (1.4-5.7) Band Neutrophils # 2.7 Lymphocytes # (Manual) 1.5 (0.6-2.4) Monocytes # (Manual) 1.7 H (0.0-0.8) Eosinophils # (Manual) 0.2 (0.0-0.7) Basophils # (Manual) 0.2 H (0.0-0.1) INR 1.05 APTT 21.8 (18.6-31.3) SEC Sodium 140 (136-145) mmol/L Potassium 4.1 (3.5-5.1) mmol/L Chloride 103 (98-107) mmol/L Carbon Dioxide 27.5 (21.0-32.0) mmol/L BUN 38 H (7.0-18.0) mg/dL Creatinine 2.0 H (0.6-1.0) mg/dL Est Cr Clr Drug Dosing 21.82 mL/min Estimated GFR (MDRD) 24.0 ml/min Glucose 211 H (74-106) mg/dL Calcium 8.8 (8.5-10.1) mg/dL Total Bilirubin 0.4 (0.2-1.0) mg/dL AST 26 (15-37) IU/L ALT 38 (14-63) IU/L Alkaline Phosphatase 122 H (46-116) U/L Total Protein 6.5 (6.4-8.2) g/dL Albumin 2.5 L (3.4-5.0) g/dL Globulin 4.0 (2.6-4.0) g/dL Albumin/Globulin Ratio 0.6 L (0.9-1.6) Ethyl Alcohol mg/dL 03/11/21 Range/Units 08:50 WBC (4.0-11.0) K/uL RBC (4.30-5.90) M/uL Hgb (12.0-16.0) g/dL Hct (36.0-46.0) % MCV (80.0-98.0) fL MCH (27.0-32.0) pg MCHC (31.0-37.0) g/dL RDW Std Deviation (28.0-62.0) fl RDW Coeff of Franki (11.0-15.0) % Plt Count (150-400) K/uL MPV (7.40-12.00) fL Add Manual Diff Neutrophils % (Manual) (48.0-80.0) % Band Neutrophils % % Lymphocytes % (Manual) (16.0-40.0) % Monocytes % (Manual) (0.0-15.0) % Eosinophils % (Manual) (0.0-7.0) % Basophils % (Manual) (0.0-1.5) % Absolute Seg Neuts (1.4-5.7) Band Neutrophils # Lymphocytes # (Manual) (0.6-2.4) Monocytes # (Manual) (0.0-0.8) Eosinophils # (Manual) (0.0-0.7) Basophils # (Manual) (0.0-0.1) INR APTT (18.6-31.3) SEC Sodium (136-145) mmol/L Potassium (3.5-5.1) mmol/L Chloride (98-107) mmol/L Carbon Dioxide (21.0-32.0) mmol/L BUN (7.0-18.0) mg/dL Creatinine (0.6-1.0) mg/dL Est Cr Clr Drug Dosing mL/min Estimated GFR (MDRD) ml/min Glucose (74-106) mg/dL Calcium (8.5-10.1) mg/dL Total Bilirubin (0.2-1.0) mg/dL AST (15-37) IU/L ALT (14-63) IU/L Alkaline Phosphatase (46-116) U/L Total Protein (6.4-8.2) g/dL Albumin (3.4-5.0) g/dL Globulin (2.6-4.0) g/dL Albumin/Globulin Ratio (0.9-1.6) Ethyl Alcohol < 3.0 mg/dL Meds: Medications Discontinued Medications Generic Name Dose Route Start Last Admin Trade Name Freq PRN Reason Stop Dose Admin Amoxicillin/Clavulanate Potassium 1 tab 03/11/21 10:00 Amoxicillin/Clavulanate K 875-125 Mg Tab PO 03/11/21 10:01 ONETIME ONE Departure - Departure Time of Disposition: 10:15 Disposition: Home, Self-Care 01 Condition: Good Clinical Impression: Fall, Dental abscess - Discharge Information *PRESCRIPTION DRUG MONITORING PROGRAM REVIEWED*: Not Applicable *COPY OF PRESCRIPTION DRUG MONITORING REPORT IN PATIENT XENIA: Not Applicable Prescriptions: Amoxicillin/Clavulanate K [Augmentin 875-125 MG] 1 tab PO BID 7 Days #14 tablet Chlorhexidine Gluconate [Chlorhexidine Gluconate 0.12% Rinse] 118 ml MM BID #1 bottle Instructions: Dental Abscess Forms: ED Department Discharge Additional Instructions: The following information is given to patients seen in the emergency department who are being discharged to home. This information is to outline your options for follow-up care. We provide all patients seen in our emergency department with a follow-up referral. The need for follow-up, as well as the timing and circumstances, are variable depending upon the specifics of your emergency department visit. If you don't have a primary care physician on staff, we will provide you with a referral. We always advise you to contact your personal physician following an emergency department visit to inform them of the circumstance of the visit and for follow-up with them and/or the need for any referrals to a consulting specialist. The emergency department will also refer you to a specialist when appropriate. This referral assures that you have the opportunity for follow-up care with a specialist. All of these measure are taken in an effort to provide you with optimal care, which includes your follow-up. Under all circumstances we always encourage you to contact your private physician who remains a resource for coordinating your care. When calling for follow-up care, please make the office aware that this follow-up is from your recent emergency room visit. If for any reason you are refused follow-up, please contact the [facility] Emergency Department at and asked to speak to the emergency department charge nurse. Please follow up with your primary care physician. If you do not have a primary care physician, see below: [facility] [address] [place] [id number] [facility] [address] [place] [id number] You were seen today after a fall. We did CT scans and x-rays that came back normal. He also has some swelling of your jaw from dental abscess after going to the dentist for today. Also have elevated white blood cell count likely due from his infection in your mouth. We will prescribe you some antibiotics for this dental abscess into you can follow-up with a dentist as well as some mouthwash. If you have any increased swelling fevers chills nausea vomiting please return to the ED. Sepsis Event Note (ED) - Focused Exam Vital Signs: Vital Signs Temp Pulse Resp BP Pulse Ox 03/11/21 09:23 97.7 F 83 18 104/40 L 92 L - Assessment/Plan Plan: Patient is a 80-year-old female who presents today after fall from transition to her chair. Patient denies any LOC but is and is on anticoagulation. Will obtain CT scans of the head and x-rays of the hips.
--- NOTE | 2021-03-11 09:31 | CR ---
INDICATION: Right hip pain after fall. TECHNIQUE: Single view pelvis and 2 view right hip. FINDINGS: No acute fracture is seen of the pelvis or right hip. Mild degenerative changes noted of the bilateral hips. Osteopenia noted. IMPRESSION: No fracture is identified of the pelvis or right hip. Dictated by Kenan Giles MD @ Mar 11 2021 9:27AM Signed by Dr. Kenan Giles @ Mar 11 2021 9:30AM
[2021-03-11 09:33] LABS: CARBON DIOXIDE,CO2 27.5 mmol/L (21.0-32.0); POTASSIUM,K 4.1 mmol/L (3.5-5.1)
--- NOTE | 2021-03-11 09:39 | CT ---
INDICATION: Fall on blood thinners TECHNIQUE: Head CT without contrast. COMPARISON: None FINDINGS: CSF spaces: Within normal limits for age. Brain parenchyma and extra-axial spaces: There are nonspecific low attenuation white matter changes consistent with chronic microvascular disease. No sign of mass, hemorrhage, or midline shift. Skull base and calvarium: Inflammatory changes present in the left sphenoid sinus. The visualized orbits are grossly unremarkable. No skull fractures. IMPRESSION: No acute or significant findings. No sign of intracranial hemorrhage. Please note that all CT scans at this facility use dose modulation, iterative reconstruction, and/or weight-based dosing when appropriate to reduce radiation dose to as low as reasonably achievable. Dictated by Ron Gardner MD @ Mar 11 2021 9:34AM Signed by Dr. Ron Gardner @ Mar 11 2021 9:37AM
[2021-03-11] MEDS ORDERED: Amoxicillin/Clavulanate K 875-125 MG Tab PO ONE (10:00)
--- NOTE | 2021-03-11 10:02 | CR ---
INDICATION: Hypoxia and dizziness. TECHNIQUE: Two-view. COMPARISON: 12/14/2020. FINDINGS: The heart size is upper limits of normal and stable. Ectasia of the thoracic aorta is noted. The lungs are free of infiltrate. No evidence for pulmonary edema. No significant pleural fluid is seen. IMPRESSION: No significant infiltrate or pulmonary edema is seen. Dictated by Kenan Giles MD @ Mar 11 2021 9:57AM Signed by Dr. Kenan Giles @ Mar 11 2021 10:00AM
== END 2021-03-11 10:50 | disposition home or self-care (01) ==
LOC: MW.ED 08:50
DX: K04.7 Periapical abscess without sinus (principal); E78.00 Pure hypercholesterolemia, unspecified; J44.9 Chronic obstructive pulmonary disease, unspecified; I12.9 Hypertensive chronic kidney disease with stage 1 through stage 4 chronic kidney disease, or unspecified chronic kidney disease; N18.9 Chronic kidney disease, unspecified; E11.22 Type 2 diabetes mellitus with diabetic chronic kidney disease; Z79.01 Long term (current) use of anticoagulants; Z79.82 Long term (current) use of aspirin; Z79.899 Other long term (current) drug therapy
CPT/HCPCS: 36415; 70450; 71046; 73502; 80053; 80307; 85025; 85610; 85730; 99284; A9270

== ENCOUNTER 2022-05-30 23:29 | Inpatient (IN) | payer MEDICARE, BC ==
[2022-05-31 00:04] LABS: CARBON DIOXIDE,CO2 30.1 mmol/L (21.0-32.0); POTASSIUM,K 4.5 mmol/L (3.5-5.1)
[2022-05-31] MEDS ORDERED: Lactated Ringers 1,000 ML IV STA (00:35)
[2022-05-31] MEDS ORDERED: Iopamidol 755 MG/ML 500 ML Multipack Bottle IVPUSH ONE (00:57)
[2022-05-31] MEDS ORDERED: Pantoprazole 80 MG in Sodium Chloride 0.9% 10 ML IVPUSH ONE (02:01)
[2022-05-31] MEDS ORDERED: Sodium Chloride 0.9% 2.5 ML Syringe FLUSH PRN (07:50)
[2022-05-31] MEDS ORDERED: Docusate Sodium 100 MG Cap PO PRN (07:50)
[2022-05-31] MEDS ORDERED: Ondansetron 4 MG/2 ML SDV IVPUSH PRN (07:50)
[2022-05-31] MEDS ORDERED: Sodium Chloride 0.9% 10 ML Syringe FLUSH PRN (07:50)
[2022-05-31] MEDS ORDERED: Albuterol 8 GM Inhaler INH PRN (08:02)
[2022-05-31] MEDS ORDERED: Diltiazem IR 30 MG Tab PO SCH (08:03)
[2022-05-31] MEDS ORDERED: Glucagon,Human Recombinant 1 MG Vial IM PRN (08:05)
[2022-05-31] MEDS ORDERED: 50% Dextrose in Water 50 ML Syringe IVPUSH PRN (08:05)
[2022-05-31] MEDS ORDERED: NYSTATIN TOP SCH (09:00)
[2022-05-31] MEDS ORDERED: Allopurinol 100 MG Tab PO SCH (09:00)
[2022-05-31] MEDS ORDERED: Budesonide/Formoterol 160-4.5 MCG/Puff 6 GM Inhaler INH SCH (09:00)
[2022-05-31] MEDS: Insulin Aspart 100 Units/ML 3 ML Pen SUBCUT SCH ×3 (09:23→17:46)
[2022-05-31] MEDS: Gabapentin 300 MG Cap PO SCH ×2 (09:43→21:10)
[2022-05-31] MEDS: Escitalopram 10 MG Tab PO SCH (09:44)
[2022-05-31] MEDS: Budesonide/Formoterol 160-4.5 MCG/Puff 6 GM Inhaler INH SCH ×2 (09:45→21:15)
[2022-05-31] MEDS ORDERED: Furosemide 20 MG Tab PO SCH (10:00)
[2022-05-31] MEDS ORDERED: Lactated Ringers 1,000 ML IV ONE (11:51)
[2022-05-31] MEDS: Allopurinol 100 MG Tab PO SCH (12:00)
[2022-05-31] MEDS: Sodium Bicarbonate 650 MG Tab PO SCH ×3 (12:41→21:10)
[2022-05-31] MEDS: Acetaminophen 325 MG Tab PO PRN ×2 (15:49→21:11)
[2022-05-31] MEDS ORDERED: Insulin Detemir 100 Units/ML 3 ML Pen SUBCUT SCH (21:00)
[2022-05-31] MEDS: Rosuvastatin 10 MG Tab PO SCH (21:10)
[2022-06-01] MEDS: Sodium Bicarbonate 650 MG Tab PO SCH ×3 (06:12→21:24)
[2022-06-01 07:13] LABS: CARBON DIOXIDE,CO2 29.6 mmol/L (21.0-32.0); POTASSIUM,K 3.6 mmol/L (3.5-5.1)
[2022-06-01] MEDS: Insulin Aspart 100 Units/ML 3 ML Pen SUBCUT SCH ×3 (08:31→17:09)
[2022-06-01] MEDS: Gabapentin 300 MG Cap PO SCH ×2 (08:49→21:24)
[2022-06-01] MEDS: Escitalopram 10 MG Tab PO SCH (08:49)
[2022-06-01] MEDS: Budesonide/Formoterol 160-4.5 MCG/Puff 6 GM Inhaler INH SCH ×2 (08:51→21:31)
[2022-06-01] MEDS: Lidocaine 5% 700 MG Patch TRDERM SCH (10:20)
[2022-06-01] MEDS: Acetaminophen 325 MG Tab PO SCH ×3 (10:22→21:27)
[2022-06-01 10:26] LABS: HEMOGLOBIN A1C 5.4 %
[2022-06-01] MEDS: Allopurinol 100 MG Tab PO SCH (12:17)
[2022-06-01] MEDS: Apixaban 2.5 MG Tab PO SCH (21:24)
[2022-06-01] MEDS: Rosuvastatin 10 MG Tab PO SCH (21:25)
[2022-06-01] MEDS: [UNRECOGNIZED DRUG - REMARK] TRDERM SCH (21:26)
[2022-06-01] MEDS: Insulin Detemir 100 Units/ML 3 ML Pen SUBCUT SCH (21:26)
[2022-06-02] MEDS: Sodium Bicarbonate 650 MG Tab PO SCH ×3 (06:19→21:56)
[2022-06-02] MEDS: Acetaminophen 325 MG Tab PO SCH ×3 (06:19→21:55)
[2022-06-02 06:28] LABS: CARBON DIOXIDE,CO2 29.2 mmol/L (21.0-32.0); POTASSIUM,K 3.5 mmol/L (3.5-5.1)
[2022-06-02] MEDS: Insulin Aspart 100 Units/ML 3 ML Pen SUBCUT SCH ×3 (07:44→17:28)
[2022-06-02] MEDS: Gabapentin 300 MG Cap PO SCH ×2 (09:29→20:35)
[2022-06-02] MEDS: Apixaban 2.5 MG Tab PO SCH ×2 (09:30→20:35)
[2022-06-02] MEDS: Escitalopram 10 MG Tab PO SCH (09:30)
[2022-06-02] MEDS: Budesonide/Formoterol 160-4.5 MCG/Puff 6 GM Inhaler INH SCH ×2 (09:31→20:37)
[2022-06-02] MEDS: Lidocaine 5% 700 MG Patch TRDERM SCH (10:29)
[2022-06-02] MEDS: Allopurinol 100 MG Tab PO SCH (11:21)
[2022-06-02] MEDS: Nystatin Crm 30 GM Tube TOP SCH (20:35)
[2022-06-02] MEDS: Rosuvastatin 10 MG Tab PO SCH (20:35)
[2022-06-02] MEDS: Insulin Detemir 100 Units/ML 3 ML Pen SUBCUT SCH (21:58)
[2022-06-02] MEDS: [UNRECOGNIZED DRUG - REMARK] TRDERM SCH (23:11)
[2022-06-03] MEDS: Sodium Bicarbonate 650 MG Tab PO SCH ×2 (06:07→13:19)
[2022-06-03] MEDS: Acetaminophen 325 MG Tab PO SCH ×2 (06:07→13:18)
[2022-06-03] MEDS: Insulin Aspart 100 Units/ML 3 ML Pen SUBCUT SCH ×2 (06:56→11:59)
[2022-06-03] MEDS: Apixaban 2.5 MG Tab PO SCH (09:27)
[2022-06-03] MEDS: Gabapentin 300 MG Cap PO SCH (09:27)
[2022-06-03] MEDS: Escitalopram 10 MG Tab PO SCH (09:27)
[2022-06-03] MEDS: Budesonide/Formoterol 160-4.5 MCG/Puff 6 GM Inhaler INH SCH (09:28)
[2022-06-03] MEDS: Lidocaine 5% 700 MG Patch TRDERM SCH (09:28)
[2022-06-03] MEDS: Nystatin Crm 30 GM Tube TOP SCH (09:29)
[2022-06-03] MEDS: Allopurinol 100 MG Tab PO SCH (11:17)
== END 2022-06-03 15:50 | disposition home or self-care (01) | DRG 812 ==
LOC: MW.ED 23:29 → EDSEX 23:29 → MW.MS 05-31 05:28 → OBSVTOIN 06-01 10:05 → MW.MS 06-01 10:15
PROVIDERS: ADMIT Internal Medicine; ATTEND Internal Medicine
DX: D50.9 Iron deficiency anemia, unspecified (principal); E86.0 Dehydration; S39.012A Strain of muscle, fascia and tendon of lower back, initial encounter; D64.9 Anemia, unspecified; R77.8 Other specified abnormalities of plasma proteins; R09.02 Hypoxemia; J44.9 Chronic obstructive pulmonary disease, unspecified; H91.90 Unspecified hearing loss, unspecified ear; M54.50 Low back pain, unspecified; M25.559 Pain in unspecified hip; I48.91 Unspecified atrial fibrillation; I72.2 Aneurysm of renal artery; W01.0XXA Fall on same level from slipping, tripping and stumbling without subsequent striking against object, initial encounter; K42.9 Umbilical hernia without obstruction or gangrene; E78.00 Pure hypercholesterolemia, unspecified; I12.9 Hypertensive chronic kidney disease with stage 1 through stage 4 chronic kidney disease, or unspecified chronic kidney disease; E11.22 Type 2 diabetes mellitus with diabetic chronic kidney disease; N18.9 Chronic kidney disease, unspecified; Z79.82 Long term (current) use of aspirin; Z79.4 Long term (current) use of insulin; Z99.81 Dependence on supplemental oxygen; Z87.891 Personal history of nicotine dependence; R00.0 Tachycardia, unspecified; I95.9 Hypotension, unspecified; E11.649 Type 2 diabetes mellitus with hypoglycemia without coma; Z79.51 Long term (current) use of inhaled steroids; Z79.01 Long term (current) use of anticoagulants; Z79.899 Other long term (current) drug therapy; Z20.822 Contact with and (suspected) exposure to COVID-19
CPT/HCPCS: 36415 ×3; 71045; 72131; 72170; 74174; 80048; 80053; 81003; 82550 ×2; 82607; 82728; 82746; 82947 ×5; 83036; 83550; 83735; 84484 ×4; 85014; 85018; 85025 ×2; 85045; 85610; 93005 ×2; 93306; 96374; 97110; 97116; 97162; 97530 ×2; 99285; A9270 ×15; C9113; G0378 ×2; J1815 ×2; J3490; J7120 ×2; Q9967; U0002